=== PATIENT | female | born 1975 | race Caucasian/White ===

== ENCOUNTER 2023-01-16 02:36 | Emergency (ER) | payer OTHER, SELFPAY ==
[2023-01-16] VITALS (7 sets, daily range): BP systolic 135–175; BP diastolic 78–101; PULSE 63–76; RESP 16–18; TEMP 36.8; O2SAT 96–99; BMI 31.2
[2023-01-16] MEDS: 0.9 % SODIUM CHLORIDE 1000 ml 1,000 ML IV (02:50)
[2023-01-16] MEDS: ONDANSETRON 2 MG/ML inj 4 MG IVP (02:50)
[2023-01-16] MEDS: KETOROLAC 15 MG/ML inj IVP (02:51)
--- NOTE | 2023-01-16 02:53 | ED_ITS ---
HPI - Back Pain/Injury General Time Seen by Provider: 03:19 Date Seen: 01/16/23 Chief Complaint: Back Injury/Pain Stated Complaint: back pain Time Seen by Provider: 01/16/23 02:37 Source: patient History of Present Illness HPI Narrative: Patient is a very pleasant 47-year-old female with history of tubal ligation who comes to the emergency room for evaluation of abdominal and back pain. Patient notes that last evening she had the onset of some low back discomfort more on her left flank. She went to bed but notes that she tossed and turned all night to now the pain seems to be more centralized in her back but is also coming around to her upper abdomen. She notes that she feels like she is distended. She has also had some loose stools recently but there has been no blood in the stools. She has not noticed fever but tonight she is experiencing episodes of diaphoresis and just not feeling well. Yesterday she did undergo a urinary catheter as she is preparing for a sling surgery. She has not noticed any dysuria or hematuria. She has not had anything like at this in the past. She still retains her gallbladder and appendix. She has not taken anything for pain. Notes that she feels better when she is sitting forward. No known back injury or fall. Related Data Home Medications Medication Instructions Recorded Confirmed buspirone 7.5 mg tablet 7.5 mg PO BID 01/16/23 01/16/23 omeprazole 40 mg capsule,delayed 40 mg PO DAILY 01/16/23 01/16/23 release venlafaxine 150 mg 150 mg PO DAILY 01/16/23 01/16/23 capsule,extended release 24 hr Allergies Allergy/AdvReac Type Severity Reaction Status Date / Time No Known Drug Allergies Allergy Verified 01/16/23 02:46 Review of Systems Status of ROS: Reports: 10 or more systems reviewed and unremarkable except as noted in History and below Const: Reports: chills; Denies: fever or fatigue ENMT: Reports: neck pain (Has noticed intermittent episodes of neck discomfort on the left.); Denies: throat pain Cardio: Reports: lightheadedness (Occasionally in the morning); Denies: chest pain, swelling of feet/ankles or shortness of breath with exertion Resp: Denies: shortness of breath or cough GI: Reports: abdominal pain (Mild on the left) and diarrhea; Denies: vomiting or blood in stool : Denies: painful urination or urinary frequency Musculo: Reports: back pain and neck pain (Has noticed intermittent episodes of neck discomfort on the left.); Denies: extremity pain Integ/Breast: Denies: rash Neuro: Denies: headache, numbness in extremities or weakness in extremities Endo: Denies: fatigue PFSH PFS Medical History (Updated 01/16/23 @ 04:33 by Wes Nielson RN) No significant past medical history Surgical History (Updated 01/16/23 @ 04:33 by Wes Nielson RN) No significant past surgical history Social History Smoking Status: Never smoker Second hand tobacco smoke exposure: No How often do you have a drink containing alcohol: never How often do you have six or more drinks on one occasion: Never AUDIT-C Alcohol total score: 0 Non-prescribed substance use: denies use Exam Narrative: Exam Narrative: Alert and oriented. Is preferring to his stay sitting up but cooperative with exam. Eyes are clear. Lips are moist. Speech is normal. Heart with regular rate and rhythm and lungs are clear bilaterally. Abdomen shows some very subtle tenderness in the left lower quadrant. No rebound tenderness. No CVA tenderness with percussion. Abdomen is slightly protuberant. Bowel sounds are present but decreased. Lower extremities without edema. Const: Vital Signs, click to edit/add: Vital Signs - 24 hr 01/16/23 02:42 01/16/23 02:51 01/16/23 03:56 Temperature 98.2 F 98.2 F 98.2 F Pulse Rate Pulse Rate [Right Pulse Oximeter] 76 Respiratory Rate 18 Blood Pressure Blood Pressure [Ri ght Upper Arm] 175/101 H Pulse Oximetry 99 Oxygen Delivery Me thod Room Air 01/16/23 04:14 01/16/23 04:31 Temperature 98.2 F Pulse Rate 63 Pulse Rate [Right Pulse Oximeter] 76 Respiratory Rate 16 16 Blood Pressure 138/101 H Blood Pressure [Ri ght Upper Arm] 135/78 Pulse Oximetry 96 96 Oxygen Delivery Me thod Room Air Documenting provider has reviewed patient's vital signs: yes Course Course Hospital Course: Differential diagnosis includes but is not limited to angina, aortic dissection, diverticulitis, colitis, ovarian pathology, urinary tract infection, pyelonephritis, small-bowel obstruction, At this time will place IV, use Toradol 15 mg IV, Zofran 4 mg IV and 1 L normal saline. Recommend CBC, comprehensive, CRP, urinalysis. CT of the abdomen. Reevaluation(s) Reevaluation #1: At this time, CT of the abdomen is reassuring. Will check EKG and troponin. Patient states she really has not had much relief from the Toradol. She is driving tonight and therefore limited in further pain control options. Blood pressure improved. Vital Signs Vital signs: Initial Vital Signs Temperature 98.2 F 01/16/23 02:42 Temperature Source Temporal Artery Scan 01/16/23 02:42 Pulse Rate 76 01/16/23 02:42 Respiratory Rate 18 01/16/23 02:42 Blood Pressure 175/101 H 01/16/23 02:42 Blood Pressure Mean 125 H 01/16/23 02:42 Blood Pressure Position Sitting 01/16/23 02:42 Pulse Oximetry 99 01/16/23 02:42 Oxygen Delivery Method Room Air 01/16/23 02:42 Vital Signs Temperature 98.2 F 01/16/23 02:42 Pulse Rate 76 01/16/23 02:42 Respiratory Rate 18 01/16/23 02:42 Blood Pressure 175/101 H 01/16/23 02:42 Pulse Oximetry 99 01/16/23 02:42 Oxygen Delivery Method Room Air 01/16/23 02:42 Temperature 98.2 F 01/16/23 04:31 Pulse Rate 76 01/16/23 04:31 Respiratory Rate 16 01/16/23 04:31 Blood Pressure 135/78 01/16/23 04:31 Pulse Oximetry 96 01/16/23 04:31 Oxygen Delivery Method Room Air 01/16/23 04:31 MDM - Back Pain/Injury MDM Narrative Medical decision making narrative: 1. Abdominal pain-while laboratory values are reassuring patient's exam and history strongly suggest diverticulitis. Although CT was read as normal I suspect that this is the case. No evidence of abnormal EKG, elevated troponin, life-threatening medical condition here tonight. Discussed with patient the use of antibiotics and pain medications. Discuss risks of antibiotics and she is aware that she has no CT evidence of diverticulitis but I do believe that is what we are dealing with here today. Augmentin 875 mg p.o. b.i.d. x7 days is sent to our [facility] machine. In regards to discomfort patient notes no real did improvement of her pain with Toradol. She is driving tonight and therefore cannot given her anything stronger than this. However, I do recommend continue ibuprofen at home and I will give her a small amount of Vicodin 5/325 1-2 tabs p.o. q.4-6 hours p.r.n. pain 10. 2. Hypertension-likely secondary to discomfort. Blood pressure now improved to 135/78. 2. Disposition-home at this time. Patient will return to the emergency room if she has increasing fever, increasing pain, onset of other symptoms. No evidence of underlying coronary event, heart strain, leukocytosis, urinary tract infection tonight. Medical Records Attestation: I reviewed the patient's medical records. Lab Data Attestation: I reviewed the patient's lab results. Labs: Lab Results 01/16/23 01/16/23 01/16/23 Range/Units 03:05 03:25 04:11 WBC 7.94 (4.50-11.00) K/uL RBC 4.75 (4.00-5.20) m/uL Hgb 14.6 (12.0-16.0) gm/dL Hct 43.1 (33.0-51.0) % MCV 91 (80-100) fL MCH 31 (26-34) pg MCHC 34 (32-36) gm/dL RDW Coeff of [place] 12.3 (11.5-15.5) % Plt Count 260 (140-440) K/uL Neut % (Auto) 76.2 H (42.0-72.0) % Lymph % (Auto) 15.5 L (20-44) % [place] % (Auto) 7.6 (0.0-11.0) % Eos % (Auto) 0.0 (0.0-7.0) % Baso % (Auto) 0.3 (0.0-3.0) % Neut # (Auto) 6.10 (1.7-7.0) K/uL Lymph # (Auto) 1.20 (0.90-2.90) K/uL [place] # (Auto) 0.60 (0.00-0.90) K/UL Eos # (Auto) 0.00 (0.00-0.50) K/uL Baso # (Auto) 0.02 (0.00-0.30) K/uL Abs Immat Gran (auto) 0.03 (0.00-0.30) K/uL Imm/Tot Granulo (auto) 0.4 % Sodium 138 (135-149) mmol/L Potassium 3.2 L (3.6-5.1) mmol/L Chloride 102 (96-114) mmol/L Carbon Dioxide 24 (20-32) mmol/L BUN 18 (5-24) mg/dL Creatinine 0.6 (0.5-1.5) mg/dL Estimated Creat Clear 102.25 Estimated GFR 113 ml/min Glucose 128 H (60-115) mg/dL Calcium 8.8 (8.4-10.6) mg/dL Total Bilirubin 0.7 (0.1-1.5) mg/dL AST 32 (12-35) U/L ALT 46 H (4-35) U/L Alkaline Phosphatase 74 (40-150) U/L Troponin I < 0.01 L (0.01-0.04) ng/mL C-Reactive Protein < 0.5 L (0.5-1.0) mg/dL Total Protein 7.3 (6.0-8.3) g/dL Albumin 4.4 (3.3-5.0) g/dL Urine Color Yellow (Yellow) Urine Appearance Cloudy A (Clear) Urine pH 7.0 (5.0-8.5) Ur Specific [place] 1.020 (1.000-1.030) Urine Protein Trace A (Negative) Urine Glucose (UA) Negative (Negative) Urine Ketones Negative (Negative) Urine Blood Trace-lysed A (Negative) Urine Nitrite Negative (Negative) Urine Bilirubin Negative (Negative) Urine Urobilinogen 0.2 (0.2-1.0) Ur Leukocyte Esterase Negative (Negative) Urine RBC 2-5 A (0-2) Urine WBC 2-5 (0-5) Ur Squamous Epith Cells Moderate A (None-Few) Urine Bacteria Moderate A (None) Lab Acknowledgement Test Added Imaging Data CT scan - abdomen: Attestation: I have reviewed the pertinent imaging results. My impression: I do not note any acute findings. Radiologist's impression: Lower chest: Unremarkable. Liver: Hepatic steatosis. Spleen: Unremarkable. Pancreas: Unremarkable. Gallbladder and bile ducts: Unremarkable. Adrenal glands: Unremarkable. Kidneys: Unremarkable. GI tract: Unremarkable. Appendix is normal. Vascular structures: Unremarkable. Lymph nodes: Unremarkable. Miscellaneous: Small fat containing umbilical. No free air or significant free fluid. Pelvic Organs: The uterus measures 13 point 14.6 x 11.1 cm. The uterus is heterogeneous and contains multiple fibroids measuring up to 7.1 cm in size. There are multiple nabothian cysts. Bones: Unremarkable for age. IMPRESSION: No acute intra-abdominal inflammatory process identified. Enlarged, heterogeneous uterus with multiple fibroids. Hepatic steatosis. ECG Data Attestation: I personally reviewed and interpreted this ECG as follows: Interpretation: EKG by my read shows sinus rhythm at a rate of 67. No acute ST or T-wave changes are noted. No evidence of heart strain noted. QT and ME intervals normal. Discharge Plan Discharge Clinical Impression: Abdominal pain Patient Disposition: Home, Self-Care Condition: Improved Additional Instructions: Your CT and laboratory values were reassuring. I suspect that you may have early diverticulitis based on your exam and symptoms. We will start Augmentin twice daily for 7 days. However, I would ask that you seek medical attention and return for any worsening symptoms especially fever, blood in your stool, chest pain, onset of new symptoms. You may use ibuprofen as needed for discomfort. Will also supply you with Vicodin which is a combination medication of the narcotic hydrocodone and Tylenol for pain not relieved by ibuprofen. Prescriptions: No Action venlafaxine 150 mg capsule,extended release 24hr 150 mg PO DAILY omeprazole 40 mg capsule,delayed release(DR/EC) 40 mg PO DAILY buspirone 7.5 mg tablet 7.5 mg PO BID Stand Alone Forms: [employer] Info Instructions
--- NOTE | 2023-01-16 03:01 | CRLHL7_ITS ---
For Patients: As a result of the Century Cures Act, medical imaging exams and procedure reports are released immediately into your electronic medical record. You may view this report before your referring provider. If you have questions, please contact your health care provider. INDICATION: Left lower quadrant pain TECHNIQUE: CT abdomen and pelvis acquired with 90 cc Isovue 370 IV contrast. COMPARISON: March 22, 2018 FINDINGS: Lower chest: Unremarkable. Liver: Hepatic steatosis. Spleen: Unremarkable. Pancreas: Unremarkable. Gallbladder and bile ducts: Unremarkable. Adrenal glands: Unremarkable. Kidneys: Unremarkable. GI tract: Unremarkable. Appendix is normal. Vascular structures: Unremarkable. Lymph nodes: Unremarkable. Miscellaneous: Small fat containing umbilical. No free air or significant free fluid. Pelvic Organs: The uterus measures 13 point 14.6 x 11.1 cm. The uterus is heterogeneous and contains multiple fibroids measuring up to 7.1 cm in size. There are multiple nabothian cysts. Bones: Unremarkable for age. IMPRESSION: No acute intra-abdominal inflammatory process identified. Enlarged, heterogeneous uterus with multiple fibroids. Hepatic steatosis. Please note that all CT scans at this facility use dose modulation, iterative reconstruction, and/or weight-based dosing when appropriate to reduce radiation dose to as low as reasonably achievable. Dictated by Ania Whelan MD @ 01/16/2023 3:48:51 AM (Electronically Signed)
[2023-01-16 03:14] LABS: Basophils Absolute Auto 0.02 K/uL (0.00-0.30); Basophils Percent Auto 0.3 % (0.0-3.0); Hematocrit 43.1 % (33.0-51.0); Hemoglobin* 14.6 gm/dL (12.0-16.0); Immature Granulocytes Abs Auto 0.03 K/uL (0.00-0.30); Immature Granulocytes Pct Auto 0.4 %; Lymphocytes Percent Auto 15.5 % (20-44); Mean Corpuscular HGB Conc 34 gm/dL (32-36); Mean Corpuscular Hemoglobin 31 pg (26-34); Mean Corpuscular Volume 91 fL (80-100); Monocytes Percent Auto 7.6 % (0.0-11.0); Neutrophils Percent Auto 76.2 % (42.0-72.0); Platelet Count* 260 K/uL (140-440); RDW Coefficient of Variation % 12.3 % (11.5-15.5); Red Blood Count 4.75 m/uL (4.00-5.20); White Blood Count* 7.94 K/uL (4.50-11.00)
[2023-01-16 03:18] LABS: Slide Review Reflex No
[2023-01-16 03:26] LABS: Appearance Urine Cloudy (Clear); Bilirubin Urine Negative (Negative); Blood Urine Trace-lysed (Negative); Color Urine Yellow (Yellow); Glucose Urine Negative (Negative); Ketones Urine Negative (Negative); Leukocyte Esterase Urine Negative (Negative); Nitrite Urine Negative (Negative); Protein Urine Trace (Negative); Urobilinogen Urine 0.2 (0.2-1.0)
[2023-01-16 03:34] LABS: Squamous Epithelial Cell Urine Moderate (None-Few)
[2023-01-16 03:35] LABS: Bacteria Urine Moderate
[2023-01-16 03:36] LABS: Albumin* 4.4 g/dL (3.3-5.0); Chloride* 102 mmol/L (96-114); Sodium* 138 mmol/L (135-149)
[2023-01-16 03:37] LABS: Potassium* 3.2 mmol/L (3.6-5.1)
[2023-01-16 03:39] LABS: Alkaline Phosphatase* 74 U/L (40-150); Aspartate Amino Transferase* 32 U/L (12-35); Bilirubin Total* 0.7 mg/dL (0.1-1.5); Carbon Dioxide* 24 mmol/L (20-32); Creatinine* 0.6 mg/dL (0.5-1.5); Est. Creatinine Clearance* 102.25; Estimated Glomerular Filt Rate 113 ml/min; Total Protein* 7.3 g/dL (6.0-8.3)
[2023-01-16 03:40] LABS: Alanine Aminotransferase* 46 U/L (4-35); Blood Urea Nitrogen* 18 mg/dL (5-24); Calcium* 8.8 mg/dL (8.4-10.6); Glucose* 128 mg/dL (60-115)
[2023-01-16 03:43] LABS: C Reactive Protein* < 0.5 mg/dL (0.5-1.0)
[2023-01-16 04:32] LABS: Troponin I* < 0.01 ng/mL (0.01-0.04)
== END 2023-01-16 05:03 | disposition home or self-care (01) ==
PROVIDERS: Emergency Provider Family Medicine
DX: R10.9 Unspecified abdominal pain (principal)
CPT/HCPCS: 36415; 74177; 80053; 81001; 84484; 85025; 86140; 87086; 93005; 94761; 96361; 96374; 96375; 99284; 99285; J1885; J2405; J7030; Q9967

== ENCOUNTER 2023-10-25 01:28 | Emergency (ER) | payer OTHER, SELFPAY ==
[2023-10-25 01:37] VITALS: BP 152/97; PULSE 68; RESP 18; TEMP 36.4; O2SAT 97; BMI 29.0
--- NOTE | 2023-10-25 01:53 | ED_ITS ---
HPI - General Adult General Chief complaint: Abdominal Pain Stated complaint: abdominal pain Time Seen by Provider: 10/25/23 01:49 History of Present Illness HPI narrative: starting around 2129 patient began having lower back pain that wraps around to the front on both sides; states that this has happened before but that she is unsure what causes it. the pain is constant and is causing nausea . vomited 2X in triage. denies urinary symptoms, denies fever or chills at home or sick cont acts recently. states she had 1 episode of diarrhea. 47-year-old woman presenting to the emergency department with concern of intense abdominal pain. Began while driving in her back about for 5 hours ago. Rather abruptly. And then seems to have wrapped around to her front and settled she gestures in the epigastrium. She describes it as hard gnawing pain. It has been quite persistent. Apparently vomited a couple of times while waiting. No hematemesis noted. Otherwise was experiencing some looser claylike stools which she was attributing somewhat to being upset around the onset of this pain. Has not had a fever. No ill exposure. No dysuria or frequency. She does have a history of GERD and does take omeprazole. This occurrence is different. Is not having pleuritic pain. She has had similar pain before just not as much. Does acknowledge that her mother had her gallbladder out as did her maternal? grandfather. Related Data Home Medications Medication Instructions Recorded Confirmed omeprazole 40 mg capsule,delayed 40 mg PO DAILY 01/16/23 10/28/23 release sertraline 100 mg tablet (Zoloft) 100 mg PO QDAY 10/28/23 10/28/23 Allergies Allergy/AdvReac Type Severity Reaction Status Date / Time No Known Drug Allergies Allergy Verified 10/28/23 09:29 Review of Systems Status of ROS: Reports: 6 or more systems reviewed and unremarkable except as noted in History and below [facility] Medical History (Updated 10/28/23 @ 12:29 by Enzo Ghosh MD) No significant past medical history Surgical History (Updated 10/28/23 @ 12:27 by Enzo Ghosh MD) History of bladder surgery ?Z98.890 - Other specified postprocedural states (ICD-10) History of bilateral tubal ligation ?Z98.51 - Tubal ligation status (ICD-10) No significant past surgical history Social History Smoking Status: Never smoker Second hand tobacco smoke exposure: No How often do you have a drink containing alcohol: never How often do you have six or more drinks on one occasion: Never AUDIT-C Alcohol total score: 0 Non-prescribed substance use: denies use Exam Narrative: Exam Narrative: Pleasant. Restless in apparent discomfort. Skin is warm and dry with numerous tattoos. Extremities are well perfused without edema. No rash evident. Lungs are clear. Not with flank pain. Normal bowel sounds. Abdomen is soft. Negative Garcia's but a little uncomfortable under the right anterior ribs but most pain in the epigastrium. No peritoneal signs. Normal bowel sounds. Heart in regular rate and rhythm. Const: Vital Signs, click to edit/add: Vital Signs - 24 hr 10/25/23 01:37 10/25/23 03:55 10/25/23 05:40 Temperature 97.6 F Pulse Rate [Pulse Oximeter] 68 82 80 Respiratory Rate 18 18 16 Blood Pressure [Le ft Upper Arm] 152/97 H 136/98 H 124/81 Pulse Oximetry 97 97 95 Oxygen Delivery Me thod Room Air Room Air Room Air Documenting provider has reviewed patient's vital signs: yes Course Vital Signs Vital signs: Initial Vital Signs Temperature 97.6 F 10/25/23 01:37 Temperature Source Temporal Artery Scan 10/25/23 01:37 Pulse Rate 68 10/25/23 01:37 Respiratory Rate 18 10/25/23 01:37 Blood Pressure 152/97 H 10/25/23 01:37 Blood Pressure Mean 115 H 10/25/23 01:37 Blood Pressure Position Supine 10/25/23 01:37 Pulse Oximetry 97 10/25/23 01:37 Oxygen Delivery Method Room Air 10/25/23 01:37 Vital Signs Temperature 97.6 F 10/25/23 01:37 Pulse Rate 68 10/25/23 01:37 Respiratory Rate 18 10/25/23 01:37 Blood Pressure 152/97 H 10/25/23 01:37 Pulse Oximetry 97 10/25/23 01:37 Oxygen Delivery Method Room Air 10/25/23 01:37 Temperature 97.6 F 10/25/23 01:37 Pulse Rate 80 10/25/23 05:40 Respiratory Rate 16 10/25/23 05:40 Blood Pressure 124/81 10/25/23 05:40 Pulse Oximetry 95 10/25/23 05:40 Oxygen Delivery Method Room Air 10/25/23 05:40 Medications Administered Medications: Discontinued Medications Generic Name Dose Route Start Last Admin Trade Name Gordoq PRN Reason Stop Dose Admin Sodium Chloride 1,000 mls @ 1,000 mls/hr 10/25/23 02:29 10/25/23 03:48 0.9 % Sodium Chloride 1000 Ml IV 10/25/23 03:28 Infused .Q1H ONE Infusion Ketorolac Tromethamine 30 mg 10/25/23 02:29 10/25/23 02:59 Ketorolac 30 Mg/Ml Inj IVP 10/25/23 02:30 30 mg ONCE ONE Administration Lidocaine/Aluminum/Magnesium/Simeth 30 ml 10/25/23 02:29 10/25/23 03:01 Gi Cocktail (Visc Lido/Antacid) 30 Ml PO 10/25/23 02:30 30 ml ONCE ONE Administration Morphine Sulfate 4 mg 10/25/23 02:29 10/25/23 03:23 Morphine 4 Mg/Ml Inj IVP 10/25/23 02:30 4 mg ONCE ONE Administration Ondansetron HCl 4 mg 10/25/23 02:29 10/25/23 03:00 Ondansetron 2 Mg/Ml Inj IVP 10/25/23 02:30 4 mg ONCE ONE Administration Medical Decision Making MDM Narrative Medical decision making narrative: I would evaluate for gallbladder disease and suspect this is probably biliary colic given what she described as similar symptoms in the past. Possible cholecystitis. This seems more than GERD. I would screen for vascular dissection. Not really with symptoms consistent for urinary tract infection nor nephrolithiasis but would screen urine for this. Ischemic cardiovascular event? Pancreatitis? Enteritis? Discussed options for management of her discomfort. She would appreciate immediate relief. Ordered for IV fluids Zofran ketorolac and initial dosing morphine. Also GI cocktail. On reassessment is a little improved but morphine sounds to have been deferred anticipating need to drive home per conversation between nursing and Ms. Oliva. I also would anticipate this not keeping her here extensively; still with pain would like the morphine. Has not seen full effect of ketorolac. With morphine is markedly improved. Reviewing labs -- mildly elevated white count and transaminases. Record review shows history of slightly elevated transaminases. Would suspect fatty liver. Urinalysis lightly positive but I am not convinced that this is the reason for discomfort. I did place bedside ultrasound. Negative Garcia's and without thickened gallbladder wall I think but does have appear to be a couple of large mobile stones and some sludge. Allowed to rest. She would like to/is willing to wait for more formal ultrasound if possible. Rested in the emergency department until early Thursday morning. cardiac catheterization technologist arrived to do ultrasound. Confirmed presence of mobile stones and sludge. Gallbladder wall thought normal. Duct thought to be a little dilated. Negative Garcia's. Question of some dayana cholecystic fluid? Ms. Oliva is symptom free. Ultimately she departed the emergency department pending radiology over-read. Plan for outpatient surgical consult. To return for persistent escalated pain, fever. Lab Data Lab results reviewed: Yes I reviewed the patient's lab results Labs: Lab Results 10/25/23 10/25/23 10/25/23 Range/Units 02:30 02:54 02:54 WBC 12.50 H (4.50-11.00) K/uL RBC 5.14 (4.00-5.20) m/uL Hgb 15.2 (12.0-16.0) gm/dL Hct 45.6 (33.0-51.0) % MCV 89 (80-100) fL MCH 30 (26-34) pg MCHC 33 (32-36) gm/dL RDW Coeff of Flora 13.0 (11.5-15.5) % Plt Count 301 (140-440) K/uL Neut % (Auto) 84.7 H (42.0-72.0) % Lymph % (Auto) 8.5 L (20-44) % [place] % (Auto) 5.8 (0.0-11.0) % Eos % (Auto) 0.2 (0.0-7.0) % Baso % (Auto) 0.2 (0.0-3.0) % Neut # (Auto) 10.60 H (1.7-7.0) K/uL Lymph # (Auto) 1.10 (0.90-2.90) K/uL [place] # (Auto) 0.70 (0.00-0.90) K/UL Eos # (Auto) 0.00 (0.00-0.50) K/uL Baso # (Auto) 0.00 (0.00-0.30) K/uL Abs Immat Gran (auto) 0.10 (0.00-0.30) K/uL Imm/Tot Granulo (auto) 0.6 % D-Dimer Quant (PE/DVT) 0.44 (0.00-0.50) ug/ml Sodium 139 (135-149) mmol/L Potassium 3.8 (3.6-5.1) mmol/L Chloride 107 (96-114) mmol/L Carbon Dioxide 26 (20-32) mmol/L Anion Gap 6 L (7-15) mEq/L BUN 18 (5-24) mg/dL Creatinine 0.6 (0.5-1.5) mg/dL Estimated Creat Clear 115.14 Estimated GFR 113 ml/min Glucose 144 H (60-115) mg/dL Lactate 1.3 (0.5-1.9) mmol/L Calcium 9.4 (8.4-10.6) mg/dL Total Bilirubin 0.8 (0.1-1.5) mg/dL Direct Bilirubin 0.1 (0.0-0.5) mg/dL AST 37 H (12-35) U/L ALT 81 H (4-35) U/L Alkaline Phosphatase 107 (40-150) U/L Troponin I < 0.01 L Cancelled (0.01-0.04) ng/mL C-Reactive Protein < 0.5 L (0.5-1.0) mg/dL NT-Pro-B Natriuret Pep 30 pg/mL Total Protein (6.0-8.3) g/dL Albumin (3.3-5.0) g/dL Lipase (23-300) U/L Urine Color (Yellow) Urine Appearance (Clear) Urine pH (5.0-8.5) Ur Specific [place] (1.000-1.030) Urine Protein (Negative) Urine Glucose (UA) (Negative) Urine Ketones (Negative) Urine Blood (Negative) Urine Nitrite (Negative) Urine Bilirubin (Negative) Urine Urobilinogen (0.2-1.0) Ur Leukocyte Esterase (Negative) Urine RBC (0-2) Urine WBC (0-5) Ur Squamous Epith Cells (None-Few) Urine Bacteria (None) Lab Acknowledgement POC Troponin I 0.00 L (0.01-0.04) ng/ml 10/25/23 10/25/23 10/25/23 Range/Units 02:54 03:51 04:00 WBC (4.50-11.00) K/uL RBC (4.00-5.20) m/uL Hgb (12.0-16.0) gm/dL Hct (33.0-51.0) % MCV (80-100) fL MCH (26-34) pg MCHC (32-36) gm/dL RDW Coeff of Flora (11.5-15.5) % Plt Count (140-440) K/uL Neut % (Auto) (42.0-72.0) % Lymph % (Auto) (20-44) % [place] % (Auto) (0.0-11.0) % Eos % (Auto) (0.0-7.0) % Baso % (Auto) (0.0-3.0) % Neut # (Auto) (1.7-7.0) K/uL Lymph # (Auto) (0.90-2.90) K/uL [place] # (Auto) (0.00-0.90) K/UL Eos # (Auto) (0.00-0.50) K/uL Baso # (Auto) (0.00-0.30) K/uL Abs Immat Gran (auto) (0.00-0.30) K/uL Imm/Tot Granulo (auto) % D-Dimer Quant (PE/DVT) (0.00-0.50) ug/ml Sodium (135-149) mmol/L Potassium (3.6-5.1) mmol/L Chloride (96-114) mmol/L Carbon Dioxide (20-32) mmol/L Anion Gap (7-15) mEq/L BUN (5-24) mg/dL Creatinine (0.5-1.5) mg/dL Estimated Creat Clear Estimated GFR ml/min Glucose (60-115) mg/dL Lactate (0.5-1.9) mmol/L Calcium (8.4-10.6) mg/dL Total Bilirubin (0.1-1.5) mg/dL Direct Bilirubin (0.0-0.5) mg/dL AST (12-35) U/L ALT (4-35) U/L Alkaline Phosphatase (40-150) U/L Troponin I (0.01-0.04) ng/mL C-Reactive Protein (0.5-1.0) mg/dL NT-Pro-B Natriuret Pep Cancelled pg/mL Total Protein 8.7 H (6.0-8.3) g/dL Albumin 5.1 H (3.3-5.0) g/dL Lipase 81 (23-300) U/L Urine Color Yellow (Yellow) Urine Appearance Cloudy A (Clear) Urine pH 8.5 (5.0-8.5) Ur Specific [place] 1.020 (1.000-1.030) Urine Protein Negative (Negative) Urine Glucose (UA) Negative (Negative) Urine Ketones 1+ A (Negative) Urine Blood Negative (Negative) Urine Nitrite Negative (Negative) Urine Bilirubin Negative (Negative) Urine Urobilinogen 0.2 (0.2-1.0) Ur Leukocyte Esterase Trace A (Negative) Urine RBC 2-5 A (0-2) Urine WBC 5-10 A (0-5) Ur Squamous Epith Cells Moderate A (None-Few) Urine Bacteria Few A (None) Lab Acknowledgement Test Added POC Troponin I (0.01-0.04) ng/ml ECG Data Attestation: I personally reviewed and interpreted this ECG as follows: (Normal sinus rhythm at a rate of 61. No acute ischemic changes.) Discharge Plan Discharge Clinical Impression: Biliary colic, Cholelithiasis Abdominal pain Qualifiers: Abdominal location: right upper quadrant Qualified Code(s): R10.11 - Right upper quadrant pain Patient Disposition: Home, Self-Care Condition: Improved Additional Instructions: Yes. It looks like you were right on with your suspicions. I would like you to call to General surgery here to schedule follow-up to discuss a plan for your gallbladder. Please call [phone] to schedule an appointment for general surgery at [facility]. In meantime avoid greasy, fatty food. Stay well-hydrated. Can take up to 800 mg of ibuprofen or up to 1000 mg of acetaminophen per dose. Alternative to ibuprofen might be up to 500 mg of naproxen twice daily. I am prescribing you Benge and Zofran from [facility]. Benge for pain Zofran for nausea. Keep in mind that each tablet of Benge contains 325 mg of acetaminophen. Prescriptions: No Action sertraline [Zoloft] 100 mg tablet 100 mg PO QDAY omeprazole 40 mg capsule,delayed release(DR/EC) 40 mg PO DAILY Follow Up/Referrals: Provider,Not a Local [Primary Care Provider] - Stand Alone Forms: [employer] Info Instructions
--- OUTSIDE RECORDS SUMMARY | 2023-10-25 02:35 | XMS_ITS | Data Portability ---
Author Name Unknown Address [address] [place] [id number] Phone [phone] Organization [place] - [facility], [address] Address [address] [place] [address] Assessment No assessment recorded. Plan of Treatment Reminders Order Date Submit Date Provider Last Modified By Organization Details Last Modified Time Details Appointments None record ed. Lab None record ed. Referral None record ed. Procedures None record ed. Surgeries None record ed. Imaging None record ed. Medication Orders None record ed. Patient TargetsNo targets recorded. Patient InstructionsNo instructions recorded. Reason for Referral None Reported. Medical Equipment None Reported. Vitals None Recorded Social History None recorded. Functional Status None recorded. Mental Status None recorded. Family History Nothing Reported. Medical History No medical history recorded. Gynecological HistoryNo gynecological history recorded. Obstetrics History GPAL:G 0 P 0 0 0 0 Past Encounters Encounter ID Performer Location Encounter Start Date Encounter Closed Date Diagnosis/Indication Diagnosis SNOMED-CT Code [id number] [place] [address] 06/23/2019 17:14:47 06/23/2019 18:21:44 Health Concerns Section Related Observation LastModified by Organization Detai ls LastModified Time None Recorded Concern Status LastModified by Organization Details LastModified Time None Recorded Advance Directives Directive None Recorded Payers Encounter Date Sequence Insurance Name Policy Number Policy Brown Covered Member ID Brown Member ID Guarantor Name 06/23/2019 1 [id number] [employer] [facility] [id number] Donal Oliva [id number] [facility] Episode No OBEpisode recorded.
--- OUTSIDE RECORDS SUMMARY | 2023-10-25 02:35 | XMS_ITS | Clinical Summary ---
Author Name Unknown Organization [facility] Address [place], [place] [address] Care Team Providers Care Paper Reel Operator Name Role Phone Juan Treadwell Primary Care Provider Allergies No known active allergies Medications Medication Sig Dispensed Refills Start Date End Date Status omeprazole (PRILOSEC) 40 mg Delayed-Release capsule TAKE 1 CAPSULE BY MOUTH EVERY DAY 1 HOUR BEFORE A MEAL 07/16/2023 Active sertraline (ZOLOFT) 100 mg tablet Take 150 mg by mouth. 04/24/2023 07/08/2024 Active albuterol HFA (PRO-AIR; VENTOLIN; PROVENTIL) 90 mcg/actuation inhalerIndications :Bronchitis Inhale 2 Puffs by mouth 4 times daily if needed for Shortness of Breath 1st choice. 1 Each 09/18/2023 Active predniSONE (DELTASONE) 20 mg tabletIndications: Bronchitis Take 3 Tablets (60 mg) by mouth once daily for 3 days, THEN 2 Tablets (40 mg) once daily for 3 days, THEN 1 Tablet (20 mg) once daily for 3 days. 18 Tablet 09/18/2023 09/27/2023 Encounters Date Type Department Care Team Description 09/18/2023 8:47 PM CDT - 09/18/2023 10:18 PM CDT Emergency [facility] [place] [address] [place] [address] Antonietta Klein [place] Bronchitis (Primary Dx) Discharge Disposition: Home Self Care from Last 3 Months Social History Tobacco Use Types Packs/Day Years Used Date Smoking Tobacco: Never Smokeless Tobacco: Never Tobacco Cessation:Counseling Given: Not Answered Alcohol Use Standard Drinks/Week Comments Yes 0 (1 standard drink = 0.6 oz pur e alcohol) Sex and Gender Information Value Date Recorded Sex Assigned at Not on file Gender Identity Not on file Sexual Orientation Not on file Obstetrics History Last Filed Vital Signs Vital Sign Reading Time Taken Comments Blood Pressure 133/96 09/18/2023 9:22 PM CDT Pulse 82 09/18/2023 9:22 PM CDT Temperature 36.8 ??C (98.2 ??F) 09/18/2023 9:22 PM CD T Respiratory Rate 16 09/18/2023 9:22 PM CDT Oxygen Saturation 97% 09/18/2023 9:22 PM CDT Inhaled Oxygen Concentration - - Weight 81.6 kg (180 lb) 09/18/2023 9:22 PM CDT Height 170.2 cm (5' 7) 09/18/2023 9:22 PM CDT Body Mass Index 28.19 09/18/2023 9:22 PM CDT Plan of Treatment Health Maintenance Due Date Last Done Comments Tdap 1988 Depression screening for age 12+ 1989 HIV for age 15-65 1992 BMI (ht and wt on same day) for age 18+ 12/22/1995 Hepatitis C screening for ag e 18-79 12/22/1995 Tetanus booster 1997 Pap test for age 21-65 1998 Colonoscopy through age 75 2022 Lipids for age 45-75 2022 Mammogram for age 45-75 2022 COVID-19 vaccine series (2022- season) 2023 07/20/2020, 07/02/2020 Influenza for age 9-49 03/06/2023 Pneumococcal series for age 6-64 Aged Out No longer eligible b ased on patient's age to complete this topic Procedures Procedure Name Priority Date/Time Associated Diagnosis Comments XR CHEST 2 VIEWS PA AND LATERAL STAT 09/18/2023 9:30 PM CDT from Last 3 Months Results * XR CHEST 2 VIEWS PA AND LATERAL (09/18/2023 9:30 PM CDT) Anatomical Region Laterality Modality CHEST, THORAX, Lung, HEART Compu kayla Radiography 09/18/2023 9:30 PM CDT Impressions 09/18/2023 9:33 PM CDT Negative chest. Narrative 09/18/2023 9:33 PM CDT For Patients: As a result of the Cures Act, medical imaging exams and procedure reports are released immediately into your electronic medical record. You may view this report before your referring provider. If you have questions, please contact your health care provider. EXAM: XR CHEST 2 VIEWS PA AND LATERAL LOCATION: [facility] [place] DATE: 09/18/2023 INDICATION: Cough COMPARISON: None. Procedure Note Chris Cagle MD - 09/18/2023 For Patients: As a result of the s Act, medical imagingexams and procedure reports are released immediately into your electronicmedical record. You may view this report before your referring provider.If you have questions, please contact your health care provider. EXAM: XR CHEST 2 VIEWS PA AND LATERAL LOCATION: [facility] [place] DATE: 09/18/2023 INDICATION: Cough COMPARISON: None. IMPRESSION: Negative chest. Antonietta Chau GENERAL IM AGING from Last 3 Months Care Teams Paper Reel Operator Relationship Specialty Start Date End Date Juan Treadwell PA [facility] [place] [id number] PCP - General 03/08/21
--- OUTSIDE RECORDS SUMMARY | 2023-10-25 02:36 | XMS_ITS | Clinical Summary ---
Author Name Unknown Organization [facility] Address [address] [place] [address] Care Team Providers Care Mold Washer Name Role Phone Clinic, [facility]irst[facility]ons Primary Care Provide r Allergies No known active allergies Social History Tobacco Use Types Packs/Day Years Used Date Smoking Tobacco: Never Assessed Adolescent Education Answer Date Record ed Getting School Help Needed Not on file 04/11 Sex and Gender Information Value Date Recorded Sex Assigned at Not on file Gender Identity Not on file Sexual Orientation Not on file Last Filed Vital Signs Vital Sign Reading Time Taken Comments Blood Pressure 129/86 06/23/2019 6:02 PM FIELD MANAGER Pulse 60 06/23/2019 6:02 PM FIELD MANAGER Temperature 37 ??C (98.6 ??F) 06/23/2019 5:31 PM FIELD MANAGER Respiratory Rate 14 06/23/2019 7:01 PM FIELD MANAGER Oxygen Saturation 97% 06/23/2019 6:50 PM FIELD MANAGER Inhaled Oxygen Concentration - - Weight - - Height - - Body Mass Index - - Plan of Treatment Health Maintenance Due Date Last Done Comments ADVANCE CARE PLANNING 1977 ANNUAL REVIEW OF HM ORDERS 1977 CT COLONOGRAPHY 1977 FIT 1977 FLEX SIG 1977 MAMMO SCREENING 1977 sDNA (Cologuard) 1977 COLONOSCOPY 12/22/1987 COLORECTAL CANCER SCREENING 12/22/1987 HIV SCREENING 1992 HEPATITIS B IMMUNIZATION (1 of 3 - 19+ 3-dose series) 1996 DTAP/TDAP/TD IMMUNIZATION (1 - Tdap) 2002 PAP 09/10/2014 09/11/2011 LIPID 2017 YEARLY PREVENTIVE VISIT 02/19/2020 02/19/20 19, 09/09/2017 GLUCOSE 06/23/2022 06/23/2019 COVID-19 Vaccine (1 - 2022-2 4 season) 2023 INFLUENZA VACCINE (#1) 2023 3, 05/06/2013 PHQ-2 (once per calendar year) 2023 HEPATITIS C SCREENING Completed 07/24/2010 HPV IMMUNIZATION Aged Out No longer e ligible based on patient's age to complete this topic IPV IMMUNIZATION Aged Out No longer e ligible based on patient's age to complete this topic MENINGITIS IMMUNIZATION Aged Out No l onger eligible based on patient's age to complete this topic Pneumococcal Vaccine: Pediatrics (0 to 5 Years) and At-Risk Patients (6 to 64 Years) Aged Out No longer eligible b ased on patient's age to complete this topic RSV MONOCLONAL ANTIBODY Aged Out No l onger eligible based on patient's age to complete this topic Procedures Procedure Name Priority Date/Time Associated Diagnosis Comments BASIC METABOLIC PANEL STAT 06/23/2019 6:09 PM FIELD MANAGER PAP LB RFX HPV ASCU ([facility]) Routine 09/11/2011 8:52 PM FIELD MANAGER HCV ANTIBODY ([facility]) Routine 07/24/2010 1:45 PM FIELD MANAGER from Last 3 Months or Most Recently Relevant to Health Maintenance Results * (ABNORMAL) Basic metabolic panel (BMP) (06/23/2019 6:09 PM FIELD MANAGER) Sodium 141 133 - 144 mmol/L 06/23/2019 6:27 PM [facility] Potassium 3.2(L) 3.4 - 5.3 mmol/L 06/23/2019 6:27 PM [facility] Chloride 108 94 - 109 mmol/L 06/23/2019 6:27 PM [facility] Carbon Dioxide 26 20 - 32 mmol/L 06/23/2019 6:33 PM [facility] Anion Gap 7 3 - 14 mmol/L 06/23/2019 6:33 PM [facility] Glucose 105(H) 70 - 99 mg/dL 06/23/2019 6:33 PM FIELD MANAGER [facility] Urea Nitrogen 20 7 - 30 mg/dL 06/23/2019 6:33 PM [facility] Creatinine 0.66 0.52 - 1.04 mg/dL 06/23/2019 6:33 PM [facility] GFR Estimate >90 >60 mL/min/{1. 73_m2} 06/23/2019 6:33 PM FIELD MANAGER [facility] Comment: Non GFR Calc Starting 06/22/2018, serum creatinine based estimated GFR (eGFR) will be calculated using the Chronic Kidney Disease Epidemiology Collaboration (CKD-EPI) equation. GFR Estimate If Black >90 >60 mL/min/{1. 73_m2} 06/23/2019 6:33 PM [facility] Comment: GFR Calc Starting 06/22/2018, serum creatinine based estimated GFR (eGFR) will be calculated using the Chronic Kidney Disease Epidemiology Collaboration (CKD-EPI) equation. Calcium 8.8 8.5 - 10.1 mg/dL 06/23/2019 6:33 PM [facility] Blood specimen (specimen) 06/23/2019 6:09 PM FIELD MANAGER 06/23/2019 6:16 PM FIELD MANAGER Arvind Larose MD LAB - BLOOD ORDER BILL [facility] [address] [place] [address], [facility] [phone] * Pap Lb rfx HPV ASCU ([facility]) (09/11/2011 8:52 PM FIELD MANAGER) DIAGNOSIS: Comment [facility] HISTORICAL RESULTS Comment: NEGATIVE FOR INTRAEPITHELIAL LESION AND MALIGNANCY. ?? THIS SPECIMEN WAS RESCREENED PART OF OUR PARASITOLOGIST PROGRAM. ?? Specimen adequacy: Comment B HISTORICAL RESULTS Comment: Satisfactory for evaluation. ??Endocervical and/or squamous metaplastic ?? cells (endocervical component) are present. ?? Performed by: Comment [facility] HISTORICAL RESULTS QC reviewed by: Comment [facility] HISTORICAL RESULTS Comment: Ezequiel Headley, Internist Medical Doctor Md (ASCP) ?? . 0 [facility] HISTORICAL RESULTS Note: Comment [facility] HISTORICAL RESULTS Comment: The Pap smear is a screening test designed to aid in the detection of ?? premalignant and malignant conditions of the uterine cervix. ??It is not a ?? diagnostic procedure and should not be used as the sole means of detecting ?? cervical cancer. ??Both false-positive and false-negative reports do occur. ?? . ?? . Comment [facility] HISTORICAL RESULTS Comment: The HPV DNA reflex criteria were not met with this specimen result ?? therefore, no HPV testing was performed. ?? . ?? 09/11/2011 8:52 PM FIELD MANAGER 09/17/2011 8:19 PM CDT Madie Murray MD LAB - [facility] Performing Organization Address [facility] Co de Phone Number [facility] HISTORICAL RESULTS * HCV Antibody ([facility]) (07/24/2010 1:45 PM FIELD MANAGER) Hep C Virus Ab <0.1 0.0 - 0.9 s/co ratio [facility] HISTORICAL RESULTS Comment: Negative: ? < 0.8 ?? Indeterminate 0.8 - 0.9 ?? Positive: ? > 0.9 ?? . ?? In order to reduce the incidence of a false positive ?? result, the CDC recommends that all s/co ratios ?? between 1.0 and 10.9 be confirmed with additional ?? RIBA or PCR testing. ?? 07/24/2010 1:45 PM FIELD MANAGER 07/26/2010 12:14 AM FIELD MANAGER Rupinder Hanson DO LAB - [facility] Performing Organization Address City/State/[facility] Co de Phone Number [facility] HISTORICAL RESULTS from Last 3 Months or Most Recently Relevant to Health Maintenance Care Teams Mold Washer Relationship Specialty Start Date End Date Clinic, Kirstin Lyons [address] [place] [address] PCP - General 12/03/22
--- OUTSIDE RECORDS SUMMARY | 2023-10-25 02:36 | XMS_ITS | Encounter Summary ---
Author Name Unknown Organization [facility] Address [address] [place] [address] Care Team Providers Care Liner Machine Operator Name Role Phone Juan Treadwell PA-C Primary Care Provider Reason for Referral * Procedure/Equipment (Routine) - Incomplete Specialty Diagnoses / Procedures Referred By Surjit leiva Referred To Contact Procedures MM Mammogram Screening Juan Cloud PA-C [address] [place] [address] Referral ID Status Reason Start Date Expiration Date V isits Requested Visits Authorized [id number] Incomplete 09/10/2023 12/09/2024 1 1 OPRESS OPERATOR Reason for Visit * Procedure/Equipment (Routine) - Incomplete Specialty Diagnoses / Procedures Referred By Surjit leiva Referred To Contact Procedures MM Mammogram Screening Juan Cloud PA-C [address] [place] [address] Referral ID Status Reason Start Date Expiration Date V isits Requested Visits Authorized [id number] Incomplete 09/10/2023 12/09/2024 1 1 Encounter Details Date Type Department Care Team ([facility] st Contact Info) Description 09/10/2023 10:10 AM LITHOPRESS OPERATOR Ancillary Procedure [facility] [address] [place] [address] Social History Tobacco Use Types Packs/Day Years Used Date Smoking Tobacco: Former Cigarettes Q uit: 09/09/2006 Smokeless Tobacco: Never Alcohol Use Standard Drinks/Week Comments Yes 0 (1 standard drink = 0.6 oz pur e alcohol) occ. PHQ-2 Answer Date Recorded PHQ-2 Score 0 07/03/2023 Financial Resource Strain Answer Date R ecorded Is it hard for you to pay fo r the very basics like food, housing, medical care or heating? No 10/03/2022 Food Insecurity Answer Date Recorded Does your food run out before you have the money to buy more? No 10/03/2022 Transportation Needs Answer Date Record ed Does a lack of transportatio n keep you from your medical appointments or from getting your medications? No 023 Sex and Gender Information Value Date Recorded Sex Assigned at Not on file Gender Identity Not on file Sexual Orientation Not on file documented as of this encounter Plan of Treatment Not on file documented as of this encounter Procedures Procedure Name Priority Date/Time Associated Diagnosis Comments MM MAMMOGRAM SCREENING BILAT W CAD Routine 09/10/2023 10:13 AM LITHOPRESS OPERATOR documented in this encounter Results * MM Mammogram Screening Bilat W CAD (09/10/2023 10:13 AM LITHOPRESS OPERATOR) Anatomical Region Laterality Modality Breast Bilateral Mammography Impressions 09/10/2023 10:50 AM LITHOPRESS OPERATOR : ACR BI-RADS Category 1: Negative RECOMMENDATION: Follow Up Imaging in 12 months - Bilateral The results and recommendations of this examination will be communicated to the patient. Narrative 09/10/2023 10:50 AM LITHOPRESS OPERATOR MM MAMMOGRAM SCREENING BILAT W CAD performed on 09/10/23 Compared to: 11/07/2021 MM Mammogram Screening Bilat W CAD, 2018 MM Mammogram Screening Bilat W CAD, and 09/10/2017 MM Mammogram Screening Bilat W CAD ?? FINDINGS: Bilateral screening mammogram was performed with the assistance of Computer-Aided Detection . The breasts are heterogeneously dense, which may obscure small masses. There is no radiographic evidence of malignancy. ?? Juan Treadwell PA-C RAD EVAN documented in this encounter Visit Diagnoses Not on filedocumented in this encounter Care Teams Liner Machine Operator Relationship Specialty Start Date End Date Juan Treadwell PA-C [address] [place] [address] PCP - General 11/01/13 documented as of this encounter
--- OUTSIDE RECORDS SUMMARY | 2023-10-25 02:36 | XMS_ITS | Encounter Summary ---
Author Name Unknown Organization [facility] Address [address] [place] [address] Care Team Providers Care Fork Repairer Name Role Phone [place] [facility] Primary Care Provide r Encounter Details Date Type Department Care Team (Late st Contact Info) Description 04/22/2007 Clinic Report (Competitive Athlete) [address] [phone] Madie Murray MD NO INFO AVAILABLE 09/17/2022 Social History Tobacco Use Types Packs/Day Years Used Date Smoking Tobacco: Never Assessed Sex and Gender Information Value Date Recorded Sex Assigned at Not on file Gender Identity Not on file Sexual Orientation Not on file documented as of this encounter Progress Notes * Madie Murray MD - 05/29/2012 3:52 PM CST CC/HPI: Follow up pap post colposcopy. None ROS: None Vital Signs: data collected on 04/22/2007 03:19:12 PM by Jaky Chow weight is 153 pounds 1.92 ounces clothed respiration rate is 16 bpm quiet sitting heart rate is 80 bpm regular blood pressure at Right Arm while Sitting is 118/60 mmHg PE: None Dx: 795.00 Abnormal pap smear 616.10 Bacterial vaginitis v04.81 Immunization influenza 300.00 Anxiety 300.01 Panic disorder, no agoraphobia Rx: Lexapro 10 mg Tab, 1 Tablet, PO, QD, 40 days, for a total of 40, return to clinic in one month. Metronidazole 500 mg Tab, 1 Tablet, PO, BID, 7 days, for a total of 14. Plan: None Patient Instructions: None documented in this encounter Plan of Treatment Not on file documented as of this encounter Visit Diagnoses Not on filedocumented in this encounter Care Teams Fork Repairer Relationship Specialty Start Date End Date [place] Bishop PCP - General Family Practice 06/23/19 12/02/22 Clinic, Kirstin Lyons [address] [place] [address] PCP - General 12/03/22 documented as of this encounter
--- OUTSIDE RECORDS SUMMARY | 2023-10-25 02:36 | XMS_ITS | Encounter Summary ---
Author Name Unknown Organization [facility] Address [address] [place] [address] Care Team Providers Care Digital Forensic Examiner Name Role Phone [place] Bishop Primary Care Provider Samia sdalicia [facility], Kirstin Lyons Primary Care Provide r Encounter Details Date Type Department Care Team (Late st Contact Info) Description 01/25/2010 Clinic Report (Mandarin Speaking Nanny) [address] [phone] Madie Murray MD NO INFO AVAILABLE 09/17/2022 Social History Tobacco Use Types Packs/Day Years Used Date Smoking Tobacco: Never Assessed Sex and Gender Information Value Date Recorded Sex Assigned at Not on file Gender Identity Not on file Sexual Orientation Not on file documented as of this encounter Progress Notes * Madie Murray MD - 05/29/2012 3:11 AM CST CC/HPI: She presented for well woman exam (18-39 years). Current contraception practice includes bilateral tubal ligation. Pap smear history is significant for last normal performed on 04-22-2007. Menstrual history includes menarche at age 16, last menstrual period 01-11-2010, regular menses, moderate flow and dysmenorrhea. Obstetrical history reveals 6 total pregnancies, 3 full term, 2 therapeutic , 1 spontaneous and 3 living children. The patient is sexually active and is monogamous. Gynecological complaints include none. Lifestyle is remarkable for no history of physical abuse, no history of sexual abuse, no history of verbal abuse, regular seatbelt use, family supportive of relationship, unsatisfactory work experience and 1 satisfactory, normal sleep patterns, abnormal amount of stress and satisfactory marriage/partner relationship. Health maintenance issues include normal weight and moderate exercise. Body Mass Index is normal BMI between 18.5 and 24.9. Cardiovascular risk factors include none. Reproductive development history shows normal development and normal genitalia. Patient received health guidance in self-breast exam, prevention and tobacco, drugs and alcohol avoidance no tobacco - ETOH . The patient received tetanus-diphtheria booster needs and given today. When asked about alcoholic beverage use, patient responds yes, screening will continue. In the past year, has had 4 or more drinks in a day 10 times. Has an alcoholic beverage 0-1 day(s) a week. Typically has 0-1 drinks per day. ROS: Constitutional: The patient denied fatigue, fever, insomnia, night sweats, recent illness and weight loss. Eyes: The patient denied eye pain, photophobia, vision change and visual disturbance. Ears/Nose/Throat/Neck: The patient denied hearing loss, nasal discharge, sinus congestion and sore throat. Cardiovascular: The patient denied arrhythmia, chest pain/pressure, edema, exercise intolerance, orthopnea and palpitations. Respiratory: The patient denied asthma, cough, dyspnea/shortness of breath, pleuritic pain, productive sputum and wheezing. Gastrointestinal: The patient denied abdominal pain, constipation, diarrhea, gastroesophageal reflux, hemorrhoids, melena, nausea and vomiting. Genitourinary/Nephrology: The patient complained of vaginal discharge but denied dysuria, nocturia and urinary incontinence. Musculoskeletal: The patient denied muscle weakness, myalgias, stiffness and swelling. Dermatologic: The patient denied itching and rash. Neurologic: The patient complained of headache (daily tension headaches) but denied dizziness, memory loss, mental status change and syncope. Psychiatric: The patient complained of anxiety but denied depression, insomnia and mood swings. Endocrine: The patient denied goiter and polyuria. Hematologic/Lymphatic: The patient denied abnormal bleeding and bruising, abnormal ecchymoses, anemia, lymph node enlargement/mass and petechiae. Allergy/Immunology: The patient denied food allergy. Vital Signs: data collected on 01/25/2010 01:04:13 PM by Korina Álvarez weight is 155 pounds clothed height is 6 feet body mass index is 23.91 Kg/m2 sitting heart rate is 56 bpm regular blood pressure at Left Arm while Sitting is 102/66 mmHg PE: Constitutional: GENERAL APPEARANCE: Overall: well nourished, well developed and in no acute distress. Eyes: CONJUNCTIVA/EYELIDS: Overall: conjunctiva clear, cornea clear and eyelids normal; PUPILS AND IRISES: Overall: pupils equal, round, reactive to light and accomodation. Ears/Nose/Throat: EXTERNAL EAR: Overall: normal appearance; EXTERNAL NOSE: Overall: benign appearance, no masses and non-tender; OTOSCOPIC EXAM: Overall: external auditory canals clear and tympanic membranes clear; LIPS/TEETH/GINGIVA: Overall: benign lips, normal dentition, benign gingiva and no masses; ORAL CAVITY/PHARYNX/LARYNX: Overall: tonsils benign, oropharyngeal mucosa clear and no masses. Neck: THYROID: Overall: normal size, normal consistency, nontender and no mass lesions. Respiratory: AUSCULTATION: Overall: breath sounds clear bilaterally; RESPIRATORY EFFORT/RHYTHM: Overall: no retractions and normal rate. Cardiovascular: AUSCULTATION OF HEART: Overall: regular rate, regular rhythm, normal heart sounds and no murmurs; INSPECTION OF CAROTID PULSES: Overall: strong, bilaterally equal, no bruits; EXTREMITIES: Overall: no clubbing and no edema. Chest/Breast: BREAST AND AXILLAE PALPATION: Overall: breasts non-tender and no nipple discharge; BREAST/CHEST INSPECTION: Overall: breasts to symmetric and without lesions and normal chest shape. Abdomen: ABDOMINAL EXAM: Overall: no tenderness and normal bowel sounds; LIVER AND SPLEEN EXAM: Overall: no hepatosplenomegaly; HERNIA EXAM: Overall: no hernias present. Genitourinary: UTERUS: Overall: normal size, normal contour, normal shape, normal mobility, nontender and no mass; CERVIX: Overall: no cervical motion tenderness, no discharge and no lesions; LABIA AND VAGINA: Overall: normal hair distribution, no discharge and no lesions; ADNEXA/PARAMETRIA: Overall: no tenderness, no enlargement, no mass lesions and normal size; URETHRA: Overall: no masses. Lymphatic: NECK NODES: Overall: anterior cervical chain benign and posterior cervical chain benign; OTHER NODES: Overall: supraclavicular chain benign; AXILLA/ARM NODES: Overall: axillary non-tender, not enlarged. Musculoskeletal: HEAD AND NECK: Overall: head atraumatic and cervical spine benign; DIGITS AND NAILS: Overall: no clubbing and digits benign; SPINE, RIBS AND PELVIS: Overall: good posture, ribs benign and spine benign; GAIT AND STATION: Overall: normal gait and normal station. Integument: INSPECTION OF SKIN: Overall: no rash, lesions. Neurologic: DEEP TENDON REFLEXES: Overall: deep tendon reflexes intact; SENSATION: Overall: intact to touch; MENTAL STATUS: Overall: alert and oriented; MOTOR: Overall: normal bulk, tone. Psychiatric: ORIENTATION/CONSCIOUSNESS: Overall: oriented to person, place and time; MOOD AND AFFECT: Overall: normal mood and affect; APPEARANCE: Overall: well-groomed, good eye contact. Dx: (V70.0) - C - ROUTINE MEDICAL EXAM (V72.31) - C - Screening, pap (V73.81) - C - HPV Screening (Human Papillomavirus Screening) (V77.1) - C - Screening, diabetes (V77.91) - C - Screening, lipids (V77.0) - C - Screening, thyroid disorders (V06.1) - C - DTAP/Tdap vaccination Rx: None Plan: A return visit is indicated in 1year. She was given this form: 'Patient Medication Summary'. Patient Instructions: None documented in this encounter Plan of Treatment Not on file documented as of this encounter Visit Diagnoses Not on filedocumented in this encounter Care Teams Digital Forensic Examiner Relationship Specialty Start Date End Date [place] Bishop PCP - General Family Practice [facility]23/19 [facility] [address] [place] [address] PCP - General 12/03/22 documented as of this encounter
--- OUTSIDE RECORDS SUMMARY | 2023-10-25 02:36 | XMS_ITS | Encounter Summary ---
Author Name Unknown Organization [facility] Address [address] [place] [address] Care Team Providers Care Stringer Machine Tender Name Role Phone Juan Treadwell PA-C Primary Care Provider Reason for Visit * Reason Comments RESULTS, TEST Encounter Details Date Type Department Care Team (Late st Contact Info) Description 10/01/2023 Telephone [place] [facility] [address] [place] [phone] Juan Treadwell PA-C [address] [place] [address] RESULTS, TEST Social History Tobacco Use Types Packs/Day Years [...] on file documented as of this encounter Nursing Notes * Rosina Ortiz, RN - 10/01/2023 3:47 PM CDT Spoke to patient regarding labs, questions answered. * Maru Bain V - 10/01/2023 3:29 PM CDT Test Results What test are you calling about? All labs have been done 09/28 Primary Rolled Ham Lacer: Juan Treadwell PA-C Who ordered the test? Dejah Ng MD Family Practice When and where was the test done? Additional comments (related to the above concern): Patient is calling to review results and discuss symptoms If a prescription is needed, patient would like it filled at the pharmacy listed in Medication Management. Is it okay to leave a detailed message on your voicemail? Yes Is there anything else I can help you with today? documented in this encounter Plan of Treatment Not on file documented as of this encounter Visit Diagnoses Not on filedocumented in this encounter Care Teams Stringer Machine Tender Relationship Specialty Start Date End Date Juan Treadwell PA-C [address] [place] [address] PCP - General 11/01/13 documented as of this encounter
--- OUTSIDE RECORDS SUMMARY | 2023-10-25 02:36 | XMS_ITS | Encounter Summary ---
Author Name Unknown Organization [facility] Address [address] [place] [address] Care Team Providers Care Food Technician Name Role Phone Juan Treadwell PA-C Primary Care Provider [phone] Encounter Details Date Type Department Care Team (Late st Contact Info) Description 10/01/2023 5:40 PM CDT Lab Visit [facility] [address] [place] [address] Pelvic pain in female Social History Tobacco Use Types Packs/Day Years [...] Procedure Name Priority Date/Time Associated Diagnosis Comments UA WITH MICROSCOPIC STAT 10/01/2023 5 :44 PM CDT Pelvic pain in female TEST (URINE) STAT 10/01/2023 5:44 PM CDT Pelvic pain in female CBC AND DIFFERENTIAL PANEL STAT 10/01/2023 5:37 PM CDT Pelvic pain in female COMPLETE BLOOD COUNT-W/DIFF STAT 10/01/2023 5:37 PM CDT Pelvic pain in female BASIC METABOLIC PANEL STAT 10/01/2023 5:37 PM CDT Pelvic pain in female C-REACTIVE PROTEIN STAT 10/01/2023 5: 37 PM CDT Pelvic pain in female documented in this encounter Results * Test (Urine) - Collect in Lab (10/01/2023 5:44 PM CDT) HCG, Urine Negative Negative 10/01/2023 5:52 PM CDT [facility] Urine Non-blood Collection / Unknown 10/01/2023 5:44 PM CDT 10/01/2023 5:48 PM CDT Belén Arcos MD LAB_1 [facility] [address] [place] [address] * (ABNORMAL) UA with Microscopic: Clean Catch (10/01/2023 5:44 PM CDT) Urine Color Straw 10/01/2023 5:59 PM CDT [facility] Urine Clarity Hazy(A) Clear 10/01/2023 5:59 PM CDT [facility] Specific [place], Urine 1.025 1.005 - 1.030 10/01/2023 5:59 PM CDT [facility] PH Urine 6.0 5.0 - 8.0 10/01/2023 5:59 PM CDT [facility] Protein, Urine Qual (mg/dL) Negative Neg/Trace 10/01/2023 5:59 PM CDT [facility] Glucose Urine Qual (mg/dL) Negative Negative 10/01/2023 5:59 PM CDT [facility] Ketones, Urine (mg/dL) Negative Negative 10/01/2023 5:59 PM CDT [facility] Urobilinogen, Urine (EU/dL) 0.2 <2.0 10/01/2023 5:59 PM CDT [facility] Bilirubin Urine Negative Negative 10/01/2023 5:59 PM CDT [facility] Blood, Urine Negative Neg/Trace 10/01/2023 5:59 PM CDT [facility] Nitrite Urine Negative Negative 10/01/2023 5:59 PM CDT [facility] Leukocyte Est. Moderate(A) Negative 5:59 PM CDT [facility] Red Blood Cells 0-3 0 - 3 /HPF 10/01/2023 5:59 PM CDT [facility] White Blood Cells 21-50(A) 0 - 5 /HPF 10/01/2023 5:59 PM CDT [facility] Bacteria Occasional(A ) None Seen /HPF 10/01/2023 5:59 PM CDT [facility] Squamous Epithelial Cells Few None Seen, Occasional, Few /HPF 10/01/2023 5:59 PM CDT [facility] Mucus Present(A) None Seen /HPF 10/01/2023 5:59 PM CDT [facility] White Blood Cell Clumps Present(A) None Seen /HPF 10/01/2023 5:59 PM CDT [facility] Urine Source Clean Catch 10/01/2023 5:59 PM CDT [facility] Urine URINE SPECIMEN COLLECTION, CLEAN CATCH / Unknown Non-blood Collection / Unknown 10/01/2023 5:44 PM CDT 10/01/2023 5:44 PM CDT Belén Arcos MD LAB_1 [facility] [address] [place] [address] * (ABNORMAL) Complete Blood Count-W/Diff (10/01/2023 5:37 PM CDT) WBC 13.0(H) 3.5 - 10.5 x10(9)/L 10/01/2023 5:41 PM [facility] RBC 4.80 3.90 - 5.03 x10(12)/L 10/01/2023 5:41 PM [facility] Hemoglobin 14.5 12.0 - 15.5 g/dL 10/01/2023 5:41 PM [facility] HCT 43.0 34.9 - 44.5 % 10/01/2023 5:41 PM [facility] MCV 89.6 80.0 - 100.0 fL 10/01/2023 5:41 PM [facility] MCH 30.2 27.6 - 33.3 pg 10/01/2023 5:41 PM [facility] MCHC 33.7 31.5 - 35.2 g/dL 10/01/2023 5:41 PM [facility] RDW 13.2 11.9 - 15.5 % 10/01/2023 5:41 PM [facility] Platelets 270 150 - 450 x10(9)/L 10/01/2023 5:41 PM [facility] Automated NRBC 0 <=0 /100 WBC 10/01/2023 5:41 PM [facility] Neutrophil Absolute 9.4(H) 1.7 - 7.0 10(9)/L 10/01/2023 5:41 PM [facility] Lymphocyte Absolute 2.1 1.0 - 4.8 10(9)/L 10/01/2023 5:41 PM [facility] Monocyte Absolute 1.1(H) 0.2 - 0.9 10(9)/L 10/01/2023 5:41 PM [facility] Eosinophil Absolute 0.2 0.0 - 0.5 10(9)/L 10/01/2023 5:41 PM [facility] Basophil Absolute 0.1 0.0 - 0.3 10(9)/L 10/01/2023 5:41 PM [facility] Immature Granulocyte % 1.5(H) 0.0 - 0.5 % 10/01/2023 5:41 PM [facility] Blood Venipuncture / Unknown 10/01/2023 5:37 PM CDT 10/01/2023 5:39 PM CDT Belén Arcos MD LAB_1 Performing Organization Address [facility] Co de Phone Number [facility] [address] [place] [address] * (ABNORMAL) Basic Metabolic Panel (10/01/2023 5:37 PM CDT) Pathologist [facility] Sodium 137 136 - 145 mmol/L 10/01/2023 5:58 PM [facility] Potassium 4.4 3.5 - 5.1 mmol/L 10/01/2023 5:58 PM [facility] Chloride 104 98 - 109 mmol/L 10/01/2023 5:58 PM [facility] CO2 25 20 - 29 mmol/L 10/01/2023 5:58 PM [facility] Anion Gap 8 7 - 16 mmol/L 10/01/2023 5:58 PM [facility] Calcium 9.1 8.4 - 10.4 mg/dL 10/01/2023 5:58 PM [facility] BUN 16 7 - 26 mg/dL 10/01/2023 5:58 PM [facility] Creatinine 0.66 0.55 - 1.02 mg/dL 10/01/2023 5:58 PM [facility] Glucose 113(H) 70 - 100 mg/dL 10/01/2023 5:58 PM [facility] Comment:The given reference range is for the fasting state. Non-fasting reference range for glucose is 70 - 180 mg/dL. GFR, Estimated >60 >60 mL/min/1.7 3m2 10/01/2023 5:58 PM [facility] Hours Fasting 0.1 8 - 12 Hours 10/01/2023 5:58 PM [facility] Comment:Lab unable to obtain patient's fasting status at time of specimen collection. Blood Venipuncture / Unknown 10/01/2023 5:37 PM CDT 10/01/2023 5:39 PM CDT Belén Arcos MD LAB_1 Performing Organization Address [facility]/State/ZIP Co de Phone Number [facility] [address] [place] [address] * (ABNORMAL) C-Reactive Protein (10/01/2023 5:37 PM CDT) C-Reactive Protein 0.8(H) 0.0 - 0.5 mg/dL 10/01/2023 5:58 PM CDT [facility] Blood Venipuncture / Unknown 10/01/2023 5:37 PM CDT 10/01/2023 5:39 PM CDT Belén Arcos MD LAB_1 [facility] [address] [place] [address] documented in this encounter Visit Diagnoses Diagnosis Pelvic pain in female Unspecified symptom associated with female genital organs documented in this encounter Care Teams Food Technician Relationship Specialty Start Date End Date Juan Treadwell PA-C [facility] [place] [address] PCP - General 11/01/13 documented as of this encounter
--- OUTSIDE RECORDS SUMMARY | 2023-10-25 02:36 | XMS_ITS | Encounter Summary ---
Author Name Unknown Organization [facility] Address [address] [place] [address] Care Team Providers Care Editing Intern Name Role Phone Eloy Bishop Primary Care Provider Samia wialicia [facility], Kirstin Lyons Primary Care Provide r Encounter Details Date Type Department Care Team (Late st Contact Info) Description 09/11/2011 Clinic Report (Licensed Massage Practitioner) [address] [phone] Madie Murray MD NO INFO AVAILABLE 09/17/2022 Social History Tobacco Use Types Packs/Day Years Used Date Smoking Tobacco: Never Assessed Sex and Gender Information Value Date Recorded Sex Assigned at Not on file Gender Identity Not on file Sexual Orientation Not on file documented as of this encounter Progress Notes * Madie Murray MD - 05/28/2012 7:48 PM CST CC/HPI: 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 She presented for well woman exam (18-39 years). Current contraception practice includes bilateral tubal ligation. Pap smear history is significant for last normal performed on 01-25-2010, thin prep, normal results and HPV negative 2009. Menstrual history includes menarche at age 16 and last menstrual period 08-20-2011. Obstetrical history reveals 6 total pregnancies, 3 full term, 2 therapeutic , 1 spontaneous and 3 living children. The patient is sexually active and is monogamous. Gynecological complaints include none. Lifestyle is remarkable for no history of physical abuse, no history of sexual abuse, no history of verbal abuse and regular seatbelt use. Health maintenance issues include normal weight and no exercise. Body Mass Index is normal BMI between 18.5 and 24.9. Cardiovascular risk factors include none. Reproductive development history shows normal development and normal genitalia. Patient received health guidance in self-breast exam and tobacco, drugs and alcohol avoidance quit smoking with third baby (girl) Irina. The patient received tetanus-diphtheria booster Tdap 2009. When asked about alcoholic beverage use, patient responds yes, screening will continue. In the past year, has had 4 or more drinks in a day never, screening is complete. Has an alcoholic beverage <1 day(s) a week gets hives- usually drinks once a month.. Typically has 4 drinks per day. ROS: Constitutional: The patient [...] melena, nausea and vomiting. Genitourinary/Nephrology: The patient denied dysuria, nocturia and urinary incontinence. Musculoskeletal: The patient denied muscle weakness, myalgias, stiffness and swelling. Dermatologic: The patient denied itching and rash. Neurologic: The patient denied dizziness, headache, memory loss, mental status change and syncope. Psychiatric: The patient denied anxiety, depression, insomnia and mood swings. Endocrine: The patient denied goiter and polyuria. Hematologic/Lymphatic: The patient denied abnormal bleeding and bruising, abnormal ecchymoses, anemia, lymph node enlargement/mass and petechiae. Allergy/Immunology: The patient denied food allergy. Vital Signs: data collected on 09/11/2011 02:29:19 PM by Aurora Strickland weight is 153 pounds clothed height is 6 feet body mass index is 23.96 Kg/m2 sitting heart rate is 72 bpm regular blood pressure at Left Arm while Sitting is 110/70 mmHg PE: Constitutional: GENERAL APPEARANCE: Overall: well [...] EXAM (V72.31) - C - Screening, pap Rx: None Plan: A return visit is indicated in 1year. She was given this form: 'Patient Medication Summary'. Patient Instructions: None documented in this encounter Plan of Treatment Not on file documented as of this encounter Visit Diagnoses Not on filedocumented in this encounter Care Teams Editing Intern Relationship Specialty Start Date End Date Eloy Bishop PCP - General Family Practice 06/23/19 12/02/22 [facility], Kirstin Lyons [facility] [place] [address] PCP - General 12/03/22 documented as of this encounter
--- OUTSIDE RECORDS SUMMARY | 2023-10-25 02:36 | XMS_ITS | Encounter Summary ---
Author Name Unknown Organization [facility] Address [address] [place] [address] Care Team Providers Care Ophthalmic Medical Technician Name Role Phone Eloy Bishop Primary [facility] Encounter Details Date Type Department Care Team (Late st Contact Info) Description 07/24/2010 Clinic Report (Print Journalist) [address] [phone] [place] [address] [facility] [place] [address] Social History Tobacco Use Types Packs/Day Years Used Date Smoking Tobacco: Never Assessed Sex and Gender Information Value Date Recorded Sex Assigned at Not on file Gender Identity Not on file Sexual Orientation Not on file documented as of this encounter Progress Notes * Rupinder Hanson DO - 05/29/2012 12:48 AM CST CC/HPI: new partner recently. sore throat recently which has improved on its own hx tubal ligation pt would like gonorrhea/chlamydia testing in oral and cervix regions as recent sex in both regions with new partner. no known exposure to stds however per pt She presented with sore throat. The symptom is gradual in onset. The symptom started a few weeks ago. Patient denies tobacco use. Associated signs and symptoms include occas cough. In addition, she presented with STD screening. Disease exposure includes none. Patient denies fever. ROS: when teenager, maybe question of genital warts but no recurrence since then per pt Constitutional: The patient complained of recent illness (recent uri) but denied fever. Ears/Nose/Throat/Neck: The patient complained of nasal discharge and sore throat (getting better on own) but denied nosebleed. Respiratory: The patient complained of cough (minimal) but denied asthma, cigarette smoking and dyspnea/shortness of breath. Gastrointestinal: The patient denied diarrhea and vomiting. Genitourinary/Nephrology: The patient complained of vaginal discharge (chronic, no new change) but denied . Dermatologic: The patient denied rash and sores. Neurologic: The patient denied paresthesia. Endocrine: The patient denied diabetes mellitus type 1 and diabetes mellitus type 2. Hematologic/Lymphatic: The patient denied abnormal bleeding and bruising. Allergy/Immunology: The patient denied food allergy. Vital Signs: data collected on 07/24/2010 07:35:07 AM by Rupinder Cordova weight is 150 pounds clothed temperature is 96.7 F sitting heart rate is 78 bpm radial regular blood pressure at Left Arm while Sitting is 104/62 mmHg PE: Constitutional: GENERAL APPEARANCE: Overall: well nourished, well developed and in no acute distress. Eyes: CONJUNCTIVA/EYELIDS: Overall: conjunctiva clear. Ears/Nose/Throat: OTOSCOPIC EXAM: Overall: tympanic membranes clear; INTERNAL NOSE: Drainage: clear and thin; ORAL CAVITY/PHARYNX/LARYNX: Overall: oropharyngeal mucosa clear. Neck: INSPECTION OF NECK: Overall: normal size. Respiratory: AUSCULTATION: Overall: breath sounds clear bilaterally. Cardiovascular: AUSCULTATION OF HEART: Overall: regular rate, regular rhythm, normal heart sounds and no murmurs. Abdomen: ABDOMINAL EXAM: Overall: no tenderness and normal bowel sounds. Genitourinary: CERVIX: Overall: pelvic exam negative; Cervical discharge: yellow; LABIA AND VAGINA: Overall: normal external genitalia. Lymphatic: NECK NODES: Overall: anterior cervical chain benign and posterior cervical chain benign. Integument: INSPECTION OF SKIN: Overall: no rashes. Dx: (616.10) - C - Bacterial vaginitis (623.5) - C - Vaginal discharge (V74.5) - C - Screening, STD (V73.89) - C - Screening, hepatitis (462) - C - Pharyngitis (465.9) - C - Upper respiratory infection, acute, NOS Rx: Metronidazole 0.75 % Vaginal Gel, 1 Application, VAG, QHS, 5 days, for a total of qs, start on July 24, 2010, end on July 28, 2010, no etoh while on this medication.. Plan: chlamydia and gonnorrhea tests done in 2 regions, cervix and pharyngeal, at pt request. std screening. no known exposure to stds per pt. cbc-ok mono-neg strep-neg t&m-clue cells no douching [as pt admits to recent douching now] metrovag gel. no etoh while on this med. note for work am's appt, she would like written that strep is neg on note, would like to go back to work now. std screening tests pending, pt aware of false positive/negative potential. Symptomatic measures. I advised patient to have a recheck doctor appointment in the next 24-48 hours if significant improvement not noted by that time, follow-up earlier as needed. I advised patient to make a recheck doctor appointment in 2 weeks if complete resolution not noted by that time. I reviewed the risks, benefits, and alternatives of plan, and the patient understands, agrees, and wishes to proceed. She was given this form: 'Patient Medication Summary'. 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 [address] [place] [address] PCP - General 12/03/22 documented as of this encounter
--- OUTSIDE RECORDS SUMMARY | 2023-10-25 02:36 | XMS_ITS | Encounter Summary ---
Author Name Unknown Organization [facility] Address [address] [place] [address] Care Team Providers Care As400 Programmer Analyst Name Role Phone Juan Treadwell PA-C Primary Care Provider [phone] Reason for Visit * Reason Comments Vaginal Discharge Encounter Details Date Type Department Care Team (Late st Contact Info) Description 09/29/2023 12:20 PM CDT Office Visit [facility] [address] [place] [address] Dejah Ng MD [address] [place] [address] Frequency of urination; Vaginal discharge; Acute cystitis without hematuria Social History Tobacco Use Types Packs/Day Years [...] on file documented as of this encounter Last Filed Vital Signs Vital Sign Reading Time Taken Comments Blood Pressure 141/92 09/29/2023 12:24 PM CDT Pulse 93 09/29/2023 12:24 PM CDT Temperature 36.6 ??C (97.9 ??F) 09/29/2023 12:24 PM C DT Respiratory Rate 18 09/29/2023 12:24 PM CDT Oxygen Saturation 97% 09/29/2023 12:24 PM CDT Inhaled Oxygen Concentration - - Weight - - Height - - Body Mass Index - - documented in this encounter Patient Instructions * Patient Instructions* Dejah Ng MD - 09/29/2023 12:20 PM CDT Based on your symptoms, exam and urinalysis you have been diagnosed as having a urinary tract infection (UTI). Most UTI's can be treated with oral antibiotics quite easily. Unfortunately some of the bacteria that cause UTI's can have resistance to some antibiotics. For this reason we are sending your urine for a culture to grow the bacteria causing the infection. When this test result comes back if it shows that your bacteria are resistant to the antibiotic you received today then we will change it. If it does not grow any bacteria or it shows that the antibiotic you have will take care of itthey will not call those results but they will be in your MyChart if you have that. It takes a few days for urine culture results to come back. In the meantime: Go to the Emergency Department or return to Urgent Care if: 1: You are vomiting or having intense pain in your back or bladder area. 2: You are having a new fever over 101> Drink a lot of water and take all of your medication as prescribed unless advised otherwise becauseof the urine culture results. You may take an over the counter medication called Azo, or it may be prescribed for you for the discomfort in the bladder. This medication turns the urine bright orange. If there was blood in the urine on your original urinalysis we recommend a follow up urinalysis after you have completed the antibiotics to show resolution of this finding. If the blood is still present then additional testing may be recommended. If your symptoms worsen, do not completely resolve or return quickly please follow up with your regular doctor or return to Urgent Care. * Attachments The following attachments cannot be sent through Care Everywhere. * UTI (Urinary Tract Infection): Female (Estonian) documented in this encounter Progress Notes * Dejah Ng MD - 09/29/2023 12:20 PM CDT [facility] Patient: Ness Oliva Date of : 1975 (47 y.o.) Subjective Nursing Notes: Gera Germain LPN 09/29/23 1224 Signed Ness Oliva is a 47 y.o.female presents to the Urgent Care for Vaginal Discharge Are you experiencing any odor? No Are you experiencing any itching? No Are you experiencing any burning? No Are you experiencing any discharge? Yes, white and yellow Are you experiencing any fevers? No Are you experiencing any abdominal pain/bloating? YES Are you experiencing any painful/frequent urination? YES How long have you had these symptoms? 4 day(s) Are you using any over the counter products to treat your symptoms? No Have you had similar symptoms? No Are you currently sexually active? YES Any new partners in the past 3 months? No Any concerns for STI(sexually transmitted infection) and/or would like to be tested today? No Are you currently using contraception? No Any use of antibiotics in the last month? No Patient requests an excuse letter for work/school: No Chief Complaint: Chief Complaint Patient presents with Vaginal Discharge History of Present Illness: Ness Oliva is a 47 y.o.female presents with symptoms of vaginal discharge, but also urinary urgency and pelvic discomfort. No incontinence and no fever, vomiting. No blood in urine. Discharge is mucosy, yellow. Adverse Drug Reactions: Patient has no known allergies. Social History: Social History Tobacco Use Smoking status: Former Current packs/day: 0.00 Types: Cigarettes Quit date: 09/09/2006 Years since quittin.0 Smokeless tobacco: Never Vaping Use Vaping status: Never Used Substance Use Topics Alcohol use: Yes Comment: occ. Drug use: No Review of Systems: Review of Systems is negative except as noted above. Objective Physical Exam: Vitals Signs: BP (!) 141/92 (BP Location: Right Arm, BP Cuff Size: Regular - Long) Pulse 93 Temp 36.6 ??C (97.9 ??F) (Oral) Resp 18 LMP 09/13/2023 (Exact Date) SpO2 97% General: NAD Abdomen: Soft and nontender without guarding rebound or masses. Genitourinary exam: Normal external genitalia. Vaginal vault is well rugated. Yellow mucosy discharge noted. no adnexal tenderness but is tender over the bladder or uterus. Cervix: nl Laboratory Testing: Results for orders placed or performed in visit on 09/29/23 Urinalysis Routine, Micro/Culture if Pos: Clean Catch Specimen: Clean Catch; Urine Result Value Ref Range Urine Culture Comment Urinalysis results meet criteria for reflex, culture performed. Urine Color Yellow Urine Clarity Clear Clear Specific Mineral, Urine 1.020 1.005 - 1.030 PH Urine 7.0 5.0 - 8.0 Protein, Urine Qual (mg/dL) Negative Neg/Trace Glucose Urine Qual (mg/dL) Negative Negative Ketones, Urine (mg/dL) Negative Negative Urobilinogen, Urine (EU/dL) 0.2 <2.0 Bilirubin Urine Negative Negative Blood, Urine Negative Neg/Trace Nitrite Urine Negative Negative Leukocyte Est. Small (A) Negative Urine Source Clean Catch Urine Microscopic Evaluation: Clean Catch Specimen: Clean Catch; Urine Result Value Ref Range Red Blood Cells 0-3 0 - 3 /HPF White Blood Cells 21-50 (A) 0 - 5 /HPF Bacteria Few (A) None Seen /HPF Squamous Epithelial Cells Few None Seen, Occasional, Few /HPF Interventions: Orders Placed This Encounter Urinalysis Routine, Micro/Culture if Pos: Clean Catch Urine Microscopic Evaluation: Clean Catch Urine Culture Vaginitis Panel (Includes Bacterial Vaginosis, Nette Species, Nette Glabrata and Trichomonas Vaginalis.) Chlamydia & GC (14 Years and Older): Vagina nitrofurantoin monohydrate macrocrystal (MACROBID) 100 MG capsule MDM: Given the symptoms and urine findings we are treating for urinary tract infection but also vagswab ordered and anything that shows up there will need treatment and urine culture also pending Assessment Impression: 1. Frequency of urination 2. Vaginal discharge 3. Acute cystitis without hematuria Plan AVS given. New Prescriptions NITROFURANTOIN MONOHYDRATE MACROCRYSTAL (MACROBID) 100 MG CAPSULE Take 1 Capsule (100 mg) by mouth two times a day for 7 days. Patient Instructions Based on your symptoms, exam and urinalysis you have been diagnosed as having a urinary tract infection (UTI). Most UTI's can be treated with oral antibiotics quite easily. Unfortunately some of the bacteria that cause UTI's can have resistance to some antibiotics. For this reason we are sending your urine for a culture to grow the bacteria causing the infection. When this test result comes back if it shows that your bacteria are resistant to the antibiotic you received today then we will change it. If it does not grow any bacteria or it shows that the antibiotic you have will take care of itthey will not call those results but they will be in your MyChart if you have that. It takes a few days for urine culture results to come back. In the meantime: Go to the Emergency Department or return to Urgent Care if: 1: You are vomiting or having intense pain in your back or bladder area. 2: You are having a new fever over 101> Drink a lot of water and take all of your medication as prescribed unless advised otherwise becauseof the urine culture results. You may take an over the counter medication called Azo, or it may be prescribed for you for the discomfort in the bladder. This medication turns the urine bright orange. If there was blood in the urine on your original urinalysis we recommend a follow up urinalysis after you have completed the antibiotics to show resolution of this finding. If the blood is still present then additional testing may be recommended. If your symptoms worsen, do not completely resolve or return quickly please follow up with your regular doctor or return to Urgent Care. Dejah Ng MD documented in this encounter Nursing Notes * Gera Germain LPN - 09/29/2023 12:20 PM CDT Ness Oliva is a 47 y.o.female presents to the Urgent Care for Vaginal Discharge Are you experiencing any odor? No Are you experiencing any itching? No Are you experiencing any burning? No Are you experiencing any discharge? Yes, white and yellow Are you experiencing any fevers? No Are you experiencing any abdominal pain/bloating? YES Are you experiencing any painful/frequent urination? YES How long have you had these symptoms? 4 day(s) Are you using any over the counter products to treat your symptoms? No Have you had similar symptoms? No Are you currently sexually active? YES Any new partners in the past 3 months? No Any concerns for STI(sexually transmitted infection) and/or would like to be tested today? No Are you currently using contraception? No Any use of antibiotics in the last month? No Patient requests an excuse letter for work/school: No documented in this encounter Plan of Treatment Not on file documented as of this encounter Procedures Procedure Name Priority Date/Time Associated Diagnosis Comments VAGINITIS PANEL Routine 09/29/2023 1:26 PM CDT Vaginal discharge CHLAMYDIA & GC (14 YEARS & OLDER) Routine 09/29/2023 1:26 PM CDT Vaginal discharge URINE CULTURE STAT 09/29/2023 12:26 PM CDT Frequency of urination URINALYSIS ROUTINE, MICRO/CULTURE IF POS STAT 09/29/2023 12:26 PM CDT Frequency of urination UA MICRO STAT 09/29/2023 12:26 PM CDT Frequency of urination documented in this encounter Results * Chlamydia & GC (14 Years and Older): Vagina (09/29/2023 1:26 PM CDT) Chlamydia Trachomatis STD Not Detected Not Detected 09/30/2023 2:27 PM CDT [facility] N. gonorrhoeae STD Not Detected Not Detected 09/30/2023 2:27 PM CDT [facility] Swab STD SPECIMEN FROM VAGINA / Unknown Non-blood Collection / Unknown 09/29/2023 1:26 PM CDT 09/29/2023 1:29 PM CDT [facility] - 09/30/2023 2:27 PM CDT Test performed by Music Store Manager Mediated Amplification (TMA). Dejah Ng MD LAB_1 Performing Organization Address [facility]/ZIP Co de Phone Number [facility] [address] * Vaginitis Panel (Includes Bacterial Vaginosis, Nette Species, Nette Glabrata and Trichomonas Vaginalis.) (09/29/2023 1:26 PM CDT) Bacterial Vaginosis Negative Negative 09/30/2023 12:55 PM CDT [facility] Nette species Negative Negative 12:55 PM CDT [facility] Nette glabrata Negative Negative 09/30/2023 12:55 PM CDT [facility] Trichomonas vaginalis Negative Negative 09/30/2023 12:55 PM CDT [facility] Swab STD SPECIMEN FROM VAGINA / Unknown Non-blood Collection / Unknown 09/29/2023 1:26 PM CDT 09/29/2023 1:29 PM CDT Narrative [facility] - 09/30/2023 12:55 PM CDT Test performed by Music Store Manager Mediated Amplification (TMA). Dejah Ng MD LAB_1 Performing Organization Address [facility] Co de Phone Number [facility] [address] * (ABNORMAL) Urine Culture (09/29/2023 12:26 PM CDT) Pathologist [facility] Urine Culture Growth(A) 09/30/2023 4:35 PM CDT [facility] Urine Culture <10,000 CFU/mL Mixed Bacterial Growth 09/30/2023 4:35 PM CDT [facility] Comment: Mixed Bacterial Growth indicates the specimen is likely contaminated at collection with urogenital and/or fecal rosa. The presence of organisms at <10,000 cfu/ml in culture, UTI unlikely. Urine URINE SPECIMEN COLLECTION, CLEAN CATCH / Unknown Non-blood Collection / Unknown 09/29/2023 12:26 PM CDT 09/29/2023 12:45 PM CDT Ryan [facility] LAB_1 Performing Organization Address City/[facility]/ZIP Co de Phone Number [address] [address], [facility] * (ABNORMAL) Urine Microscopic Evaluation: Clean Catch (09/29/2023 12:26 PM CDT) Red Blood Cells 0-3 0 - 3 /HPF 12:45 PM CDT [facility] White Blood Cells 21-50(A) 0 - 5 /HPF 09/29/2023 12:45 PM CDT [facility] Bacteria Few(A) None Seen /HPF 09/29/2023 12:45 PM CDT [facility] Squamous Epithelial Cells Few None Seen, Occasional , Few /HPF 09/29/2023 12:45 PM CDT [facility] Urine URINE SPECIMEN COLLECTION, CLEAN CATCH / Unknown Non-blood Collection / Unknown 09/29/2023 12:26 PM CDT 09/29/2023 12:35 PM CDT Ryan Leahy [facility] LAB_1 Performing Organization Address [facility] Co de Phone Number [facility] [address] [place] [address] * (ABNORMAL) Urinalysis Routine, Micro/Culture if Pos: Clean Catch (09/29/2023 12:26 PM CDT) Pathologist [facility] Urine Culture Comment Urinalysis results meet criteria for reflex, culture performed. 09/29/2023 12:45 PM CDT [facility] Urine Color Yellow 09/29/2023 12:45 PM CDT [facility] Urine Clarity Clear Clear 09/29/2023 12:45 PM CDT [facility] Specific Mineral, Urine 1.020 1.005 - 1.030 09/29/2023 12:45 PM CDT [facility] PH Urine 7.0 5.0 - 8.0 09/29/2023 12:45 PM CDT [facility] Protein, Urine Qual (mg/dL) Negative Neg/Trace 09/29/2023 12:45 PM CDT [facility] Glucose Urine Qual (mg/dL) Negative Negative 09/29/2023 12:45 PM CDT [facility] Ketones, Urine (mg/dL) Negative Negative 09/29/2023 12:45 PM CDT [facility] Urobilinogen, Urine (EU/dL) 0.2 <2.0 09/29/2023 12:45 PM CDT [facility] Bilirubin Urine Negative Negative 09/29/2023 12:45 PM CDT [facility] Blood, Urine Negative Neg/Trace 09/29/2023 12:45 PM CDT [facility] Nitrite Urine Negative Negative 09/29/2023 12:45 PM CDT [facility] Leukocyte Est. Small(A) Negative 09/29/2023 12:45 PM CDT [facility] Urine Source Clean Catch 09/29/2023 12:45 PM CDT [facility] Urine URINE SPECIMEN COLLECTION, CLEAN CATCH / Unknown Non-blood Collection / Unknown 09/29/2023 12:26 PM CDT 09/29/2023 12:35 PM CDT Ryan [facility] LAB_1 Performing Organization Address City/State/[facility] Co de Phone Number [facility] [address] [place] [address] documented in this encounter Visit Diagnoses Diagnosis Frequency of urination Urinary frequency Vaginal discharge Leukorrhea, not specified as infective Acute cystitis without hematuria Acute cystitis documented in this encounter Care Teams As400 Programmer Analyst Relationship Specialty Start Date End Date Juan Treadwell PA-C [address] [place] [address] PCP - General 11/01/13 documented as of this encounter
--- OUTSIDE RECORDS SUMMARY | 2023-10-25 02:36 | XMS_ITS | Encounter Summary ---
Author Name Unknown Organization [facility] Address [address] [place] [address] Care Team Providers Care Health Evaluator Name Role Phone Eloy Bishop Primary Care Provider Samia romero [facility] Provide r Encounter Details Date Type Department Care Team (Late st Contact Info) Description 06/13/2011 Clinic Report (Sugar Controller) [address] [phone] [place] [address] [facility] [address] [place], [place] [id number] Social History Tobacco Use Types Packs/Day Years Used Date Smoking Tobacco: Never Assessed Sex and Gender Information Value Date Recorded Sex Assigned at Not on file Gender Identity Not on file Sexual Orientation Not on file documented as of this encounter Progress Notes * Rupinder Hanson DO - 05/28/2012 8:46 PM CST CC/HPI: She presented with vaginal discharge. The symptom is described as acute. The symptom is gradual in onset. The symptom started 1 months ago. The complaint is moderate. The frequency of episodes is daily. ROS: btl. no new partners. declines std testing. Constitutional: The patient denied fever. Gastrointestinal: The patient denied diarrhea and vomiting. Genitourinary/Nephrology: The patient complained of vaginal discharge but denied dysuria (no urinary concerns per pt) and . Dermatologic: The patient denied rash and sores. Allergy/Immunology: The patient denied food allergy. Vital Signs: data collected on 06/13/2011 04:10:01 PM by Rupinder Cordova weight is 153 pounds clothed temperature is 98.4 F sitting heart rate is 76 bpm radial regular blood pressure at Right Arm while Sitting is 120/60 mmHg PE: Constitutional: GENERAL APPEARANCE: Overall: well nourished, well developed and in no acute distress. Abdomen: ABDOMINAL EXAM: Overall: no tenderness. Genitourinary: CERVIX: Overall: no cervical motion tenderness and pelvic exam negative; Cervical discharge: white and yellow; LABIA AND VAGINA: Overall: normal external genitalia. Dx: (623.5) - C - Vaginal discharge (616.10) - C - Bacterial vaginitis Rx: Metronidazole 0.75 % Vaginal Gel, 1 Application, VAG, QHS, 5 days, for a total of qs, start on June 13, 2011, end on June 17, 2011, no etoh while on this medication.. Plan: t&m-clue cells present. Metronidazole vaginal gel 0.75%, 1 applicatorful per vagina qhs for 5 days. Do not consume alcohol while on this medicine. no douching/baths/hottubs/etc. continue showers per routine. I advised that patient have a recheck doctor appointment in the next 1-2 weeks if complete resolution not noted by that time. I reviewed the risks, benefits, and alternatives of plan, and the patient understands, agrees, and wishes to proceed. Patient Instructions: None ABAP DEVELOPER documented in this encounter Plan of Treatment Not on file documented as of this encounter Visit Diagnoses Not on filedocumented in this encounter Care Teams Health Evaluator Relationship Specialty Start Date End Date Eloy Bishop PCP - General Family Practice 06/23/19 12/02/22 [facility] [address] [place] [address] PCP - General 12/03/22 documented as of this encounter
--- OUTSIDE RECORDS SUMMARY | 2023-10-25 02:36 | XMS_ITS | Encounter Summary ---
Author Name Unknown Organization [facility] Address [address] [place] [address] Care Team Providers Care Medical Technologist Prn Name Role Phone Juan Treadwell PA-C Primary Care Provider [phone] Reason for Visit * Procedure/Equipment (Routine) - Incomplete Specialty Diagnoses / Procedures Referred By Rollyac t Referred To Contact Diagnoses Leukocytosis, unspecified type (HRC) Procedures CT Abd Pelvis W IV Cont CT Abd Pelvis W/WO IV Cont Belén Arcos MD [address] [place] [address] Referral ID Status Reason Start Date Expiration Date V isits Requested Visits Authorized [id number] Incomplete 10/01/2023 12/30/2024 1 1 Encounter Details Date Type Department Care Team (Latest Contact Info) Description 10/01/2023 7:00 PM CDT Ancillary Procedure [place] [address] [address] Scan [address] [place] [phone] Belén Arcos MD [address] [place] [address] Leukocytosis, unspecified type (HRC) Social History Tobacco Use Types Packs/Day Years [...] Procedure Name Priority Date/Time Associated Diagnosis Comments CT ABD PELVIS W IV CONT STAT 10/01/2023 6:30 PM CDT Leukocytosis, unspecified type (HRC) documented in this encounter Results * CT Abd Pelvis W IV Cont (10/01/2023 6:30 PM CDT) Anatomical Region Laterality Modality Abdomen, Pelvis Computed Tomogra phy 10/01/2023 6:15 PM CDT Impressions 10/01/2023 6:39 PM CDT COMPARISON: ??None. TECHNIQUE: ??Images were obtained through the abdomen and pelvis following the administration of 75 mL IOHEXOL 350 MG/ML IV SOLN IV contrast. FINDINGS: LOWER CHEST: Unremarkable. LIVER: Unremarkable. GALLBLADDER AND BILIARY TREE: Unremarkable. No intrahepatic or extrahepatic biliary ductal dilation. PANCREAS: Unremarkable. SPLEEN: Mildly enlarged spleen measuring 15 cm craniocaudal. ADRENALS: Unremarkable. KIDNEYS, URETERS, AND BLADDER: Subcentimeter hypoattenuating focus at the medial aspect of the right kidney, too small to accurately characterize, but most likely to represent a cyst. No hydronephrosis. VESSELS: No abdominal aortic aneurysm. BOWEL: Unremarkable. No inflammatory changes or obstruction. Normal appendix REPRODUCTIVE ORGANS: Multi-fibroid uterus. Multiple cervical nabothian cysts are again noted. MESENTERY/PERITONEUM: No enlarged mesenteric lymph nodes. No ascites or free air. No focal fluid collection. RETROPERITONEUM: No adenopathy. ABDOMINAL WALL/SOFT TISSUES: Unremarkable. BONES: Chronic left L5 pars fracture. No suspicious osseous lesion or acute fracture. IMPRESSION: ?? 1. No acute findings in the abdomen or pelvis. 2. Multi-fibroid uterus. Narrative Procedure Note Chase Richardson MD - 10/01/2023 IMPRESSION COMPARISON: None. TECHNIQUE: Images were obtained through the abdomen and pelvis followingthe administration of 75 mL IOHEXOL 350 MG/ML IV SOLN IV contrast. FINDINGS: LOWER CHEST: Unremarkable. LIVER: Unremarkable. GALLBLADDER AND BILIARY TREE: Unremarkable. No intrahepatic orextrahepatic biliary ductal dilation. PANCREAS: Unremarkable. SPLEEN: Mildly enlarged spleen measuring 15 cm craniocaudal. ADRENALS: Unremarkable. KIDNEYS, URETERS, AND BLADDER: Subcentimeter hypoattenuating focus at themedial aspect of the right kidney, too small to accurately characterize,but most likely to represent a cyst. No hydronephrosis. VESSELS: No abdominal aortic aneurysm. BOWEL: Unremarkable. No inflammatory changes or obstruction. Normalappendix REPRODUCTIVE ORGANS: Multi-fibroid uterus. Multiple cervical nabothiancysts are again noted. MESENTERY/PERITONEUM: No enlarged mesenteric lymph nodes. No ascites orfree air. No focal fluid collection. RETROPERITONEUM: No adenopathy. ABDOMINAL WALL/SOFT TISSUES: Unremarkable. BONES: Chronic left L5 pars fracture. No suspicious osseous lesion oracute fracture. IMPRESSION: 1. No acute findings in the abdomen or pelvis. 2. Multi-fibroid uterus. Belén Arcos MD RAD CT documented in this encounter Visit Diagnoses Diagnosis Leukocytosis, unspecified type (HRC) documented in this encounter Administered Medications Inactive Administered Medications - up to 3 most recent administrations Medication Order MAR Action Action Date Dose Rate Site iohexol (OMNIPAQUE 350) 350 MG/ML injection 75 mL 75 mL, Intravenous, ONCE, On Dee 10/01/23 at 1845, For 1 dose Given 10/01/2023 6:27 PM CDT 75 mL sodium chloride 0.9% injection 10 mL 10 mL, Intravenous, ONCE, On Dee 10/01/23 at 1845, For 1 dose Given 10/01/2023 6:27 PM CDT 10 mL documented in this encounter Care Teams Medical Technologist Prn Relationship Specialty Start Date End Date Juan Treadwell PA-C [address] [place] [address] PCP - General 11/01/13 documented as of this encounter
--- OUTSIDE RECORDS SUMMARY | 2023-10-25 02:36 | XMS_ITS | Referral Summary ---
Author Name Unknown Organization [facility] Address [address] [place] [address] Care Team Providers Care Manager Medical Name Role Phone Clinic, Kirstin Lyons Primary [...] Comments Blood Pressure 129/86 06/23/2019 6:02 PM [facility] Pulse 60 06/23/2019 6:02 PM [facility] Temperature 37 ??C (98.6 ??F) 06/23/2019 5:31 PM [facility] Respiratory Rate 14 06/23/2019 7:01 PM [facility] Oxygen Saturation 97% 06/23/2019 6:50 PM [facility] Inhaled Oxygen Concentration - - Weight - - Height - - Body Mass Index - - Plan of Treatment Not on file Procedures Procedure Name Priority Date/Time Associated Diagnosis Comments BASIC METABOLIC PANEL STAT 06/23/2019 6:09 PM [facility] PAP LB RFX HPV ASCU ([facility]) Routine 09/11/2011 8:52 PM [facility] HCV ANTIBODY ([facility]) Routine 07/24/2010 1:45 PM [facility] from Last 3 Months or Most Recently Relevant to Health Maintenance Results * (ABNORMAL) Basic metabolic panel (BMP) (06/23/2019 6:09 PM [facility]) Sodium 141 133 - 144 mmol/L 06/23/2019 6:27 PM [facility] Potassium 3.2(L) 3.4 - 5.3 mmol/L 06/23/2019 6:27 PM [facility] Chloride 108 94 - 109 mmol/L 06/23/2019 6:27 PM [facility] Carbon Dioxide 26 20 - 32 mmol/L 06/23/2019 6:33 PM [facility] Anion Gap 7 3 - 14 mmol/L 06/23/2019 6:33 PM [facility] Glucose 105(H) 70 - 99 mg/dL 06/23/2019 6:33 PM [facility] Urea Nitrogen 20 7 - 30 mg/dL 06/23/2019 6:33 PM [facility] Creatinine 0.66 0.52 - 1.04 mg/dL 06/23/2019 6:33 PM [facility] GFR Estimate >90 >60 mL/min/{1. 73_m2} 06/23/2019 6:33 PM [facility] Comment: Non GFR Calc Starting 06/22/2018, serum creatinine based estimated GFR (eGFR) will be calculated using the Chronic Kidney Disease Epidemiology Collaboration (CKD-EPI) equation. GFR Estimate If Black >90 >60 mL/min/{1. 73_m2} 06/23/2019 6:33 PM [facility] Comment: GFR Calc Starting 06/22/2018, serum creatinine based estimated GFR (eGFR) will be calculated using the Chronic Kidney Disease Epidemiology Collaboration (CKD-EPI) equation. Calcium 8.8 8.5 - 10.1 mg/dL 06/23/2019 6:33 PM [facility] Blood specimen (specimen) 06/23/2019 6:09 PM [facility] 06/23/2019 6:16 PM [facility] Arvind Larose MD LAB - BLOOD ORDER BILL [facility] Alyssa E Magalis Abdullahi [place] [id number], [facility] [phone] * Pap Lb rfx HPV ASCU ([facility]) (09/11/2011 8:52 PM [facility]) DIAGNOSIS: Comment [facility] HISTORICAL RESULTS Comment: NEGATIVE FOR INTRAEPITHELIAL LESION AND MALIGNANCY. ?? THIS SPECIMEN WAS RESCREENED PART OF OUR PROGRAMMING MANAGER PROGRAM. ?? Specimen adequacy: Comment B HISTORICAL RESULTS Comment: Satisfactory for evaluation. ??Endocervical and/or squamous metaplastic ?? cells (endocervical component) are present. ?? Performed by: Comment [facility] HISTORICAL RESULTS QC reviewed by: Comment [facility] HISTORICAL RESULTS Comment: Ezequiel Headley, City Supervisor [facility] ?? . 0 [facility] HISTORICAL RESULTS Note: Comment [facility] HISTORICAL RESULTS Comment: The Pap smear is a screening test designed to aid in the detection of ?? premalignant and malignant conditions of the uterine cervix. ??It is not a ?? diagnostic procedure and should not be used as the sole means of detecting ?? cervical cancer. ??Both false-positive and false-negative reports do occur. ?? . ?? . Comment [facility] HISTORICAL RESULTS Comment: The HPV DNA reflex criteria were not met with this specimen result ?? therefore, no HPV testing was performed. ?? . ?? 09/11/2011 8:52 PM [facility] 09/17/2011 8:19 PM CDT Madie Murray MD LAB - [facility] HISTORICAL RESULTS * HCV Antibody ([facility]) (07/24/2010 1:45 PM [facility] PRIEST) Pathologist [facility] Hep C Virus Ab <0.1 0.0 - 0.9 s/co ratio [facility] HISTORICAL RESULTS Comment: Negative: ? < 0.8 ?? Indeterminate 0.8 - 0.9 ?? Positive: ? > 0.9 ?? . ?? In order to reduce the incidence of a false positive ?? result, the CDC recommends that all s/co ratios ?? between 1.0 and 10.9 be confirmed with additional ?? RIBA or PCR testing. ?? 07/24/2010 1:45 PM [facility] 07/26/2010 12:14 AM [facility] Rupinder Hanson DO LAB - [facility] HISTORICAL RESULTS from Last 3 Months or Most Recently Relevant to Health Maintenance Care Teams Manager Medical Relationship Specialty Start Date End Date Clinic, Kirstin Lyons [facility] [place] [address] PCP - General 12/03/22
--- OUTSIDE RECORDS SUMMARY | 2023-10-25 02:36 | XMS_ITS | Encounter Summary ---
Author Name Unknown Organization [facility] Address [address] [place] [address] Care Team Providers Care Tele Rn Name Role Phone Juan Treadwell PA-C Primary Care Provider [phone] Reason for Visit * Reason Onset Date Comments BLOOD PRESSURE, HIGH Video Visit 09/22/2023 Encounter Details Date Type Department Care Team (Late st Contact Info) Description 09/22/2023 10:00 AM CDT Telemedicine [facility] [address] [facility] [place], [place] [id number] Juan Treadwell PA-C [address] [place], [place] [address], [place] [address] Stage 1 hypertension (HRC) (Primary Dx) Social History Tobacco Use Types Packs/Day Years [...] Reading Time Taken Comments Blood Pressure 133/96 09/21/2023 8:52 AM CDT Pt reported 09/18 Pulse - - Temperature - - Respiratory Rate - - Oxygen Saturation - - Inhaled Oxygen Concentration - - Weight - - Height - - Body Mass Index - - documented in this encounter Patient Instructions * Attachments The following attachments cannot be sent through Care Everywhere. * !How to Take Your Blood Pressure at Home (Brazilian) * !The DASH Eating Plan: Healthy eating to lower your blood pressure (Brazilian) documented in this encounter Progress Notes * Juan Treadwell PA-C - 09/22/2023 10:00 AM CDT Subjective: Today's visit with Ness was conducted as a scheduled video visit. She has been monitoring blood pressures periodically at home since her preop visit in February of 2023. Her blood pressures have consistently run a little bit high. She has done a little research and she notes that she is in stage I hypertension. The systolic numbers often in the 130s while her diastolic is really never below 90. Typically between 90 and 100. She denies any symptoms of hypertensionincluding headaches, vision blurring, chest pain, shortness on breath and extremity swelling. She quit smoking in 2006. She has gained some weight over the last few years. She is very very busy with work. Works at least 12 hour days. 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 She is running the entire time she is at work. Outside of that though does not really get any sustained physical activity in the form of exercise. She does feel like there is opportunity in her diet to lower sodium, saturated fats. Objective: BP (!) 133/96 Comment: Pt reported 09/18 LMP 08/25/2023 Well-groomed, casually-dressed maintains good eye contact during our discussion today. Mood and affect are appropriate. Assessment/Plan: Stage 1 hypertension (HRC) After discussion she feels that there are some opportunities to make change in her lifestyle including working on sodium in the diet, decreasing weight by 5-10 lb. She would like the opportunity to try lifestyle change prior to starting medication. We will trial this for the next 6 months. Written information given on checking accurate home blood pressure readings as well as DASH eating plan. Shehas an active job, but I encouraged her to get more sustained cardiovascular physical activity whenshe has opportunities to do so. Aim for 5-10 lb of weight loss over the next 6 months. We will planto meet back for either video or office visit in 6 months to reassess. If blood pressures are stillrunning elevated at that time, medication would be indicated. Juan Treadwell PA-C Billing based on: Time including, but not limited to, amo-arcl-ij-face time spent reviewing records, counseling, and coordination of care. documented in this encounter Plan of Treatment Not on file documented as of this encounter Visit Diagnoses Diagnosis Stage 1 hypertension (HRC)- Primary documented in this encounter Care Teams Tele Rn Relationship Specialty Start Date End Date Juan Treadwell PA-C [facility] [place] [address] PCP - General 11/01/13 documented as of this encounter
--- OUTSIDE RECORDS SUMMARY | 2023-10-25 02:36 | XMS_ITS | Encounter Summary ---
Author Name Unknown Organization [facility] Address [address] [place] [address] Care Team Providers Care Supervisor Scrap Preparation Name Role Phone Juan Treadwell PA-C Primary Care Provider Reason for Referral * Consult/Transfer Care (Routine) - New Request Specialty Diagnoses / Procedures Referred By Surjit leiva Referred To Contact Diagnoses Pelvic pain in female Belén Arcos MD [address] [place] [address] Referral ID Status Reason Start Date Expiration Date V isits Requested Visits Authorized [id number] New Request 10/01/2023 12/30/2024 1 1 Scheduling Instructions Your clinician has recommended an appointment with [facility]. You can quickly make your appointment online at [employer]/schedule. You can also call [phone] for help scheduling your appointment. We suggest you call your health insurance company about your coverage and benefits for this appointment. Question Answer Appointment Urgency? Within 1 Week (Urgent) Consult for Gynecology Reason for visit? New onset pelvic pain history of fibroids and recent bladder sling follow up after pelvic ultrasound in one-week okayed by batting machine operator insulation on-call * Procedure/Equipment (Routine) - Incomplete Specialty Diagnoses / Procedures Referred By Surjit leiva Referred To Contact Diagnoses Pelvic pain in female Procedures US Pelvic Complete W EV Belén Arcos MD [address] [place] [address] Referral ID Status Reason Start Date Expiration Date V isits Requested Visits Authorized [id number] Incomplete 10/01/2023 12/30/2024 1 1 * Procedure/Equipment (Routine) - Incomplete Specialty Diagnoses / Procedures Referred By Contac t Referred To Contact Diagnoses Leukocytosis, unspecified type (HRC) Procedures CT Abd Pelvis W IV Cont CT Abd Pelvis W/WO IV Cont Belén Arcos MD [address] [place] [address] Referral ID Status Reason Start Date Expiration Date V isits Requested Visits Authorized [id number] Incomplete 10/01/2023 12/30/2024 1 1 Reason for Visit * Reason Comments Vaginal Discharge Encounter Details Date Type Department Care Team (Late st Contact Info) Description 10/01/2023 5:00 PM CDT Office Visit [facility] [address] [place] [address] Belén Arcos MD [address] [place] [address] Pelvic pain in female; Leukocytosis, unspecified type (HRC) Social History Tobacco [...] Sign Reading Time Taken Comments Blood Pressure 129/89 10/01/2023 4:54 PM CDT Pulse 99 10/01/2023 4:54 PM CDT Temperature 36.4 ??C (97.5 ??F) 10/01/2023 4:54 PM CD T Respiratory Rate 20 10/01/2023 4:54 PM CDT Oxygen Saturation 97% 10/01/2023 4:54 PM CDT Inhaled Oxygen Concentration - - Weight - - Height - - Body Mass Index - - documented in this encounter Progress Notes * Belén Arcos MD - 10/01/2023 5:00 PM CDT CC: Pelvic pain HPI: Patient comes in alone, she was seen 2 days ago for one-week history of pain in her pelvic area which she quantifies as 6 to 7/10, mostly constant with occasional sharp symptoms had no associated nausea fever no dysuria she was noted a pretty significant vaginal discharge without odor or itching or burning with urination. She was sexually active has been for 26 years no STD history or concern. She would use urinalysis showed some pyuria though culture was negative she was started on Macrodantin has not helped with symptoms and urine culture was negative. Wet prep shows no evidence of yeast or bacteria. She does have history of known fibroids she was had 3 kids all delivered vaginally he was had bladder sling about 6 months ago for urinary incontinence which helped modestly.does note some pain with intercourse which she attributed to recent surgery periods she notes some diarrhea with recent antibiotics though has had no overall change in bowel habits. Physical exam patient is not ill-appearing vital signs noted lungs clear heart exam is normal abdomen normal bowel sounds she was tender to palpation diffusely in her right and left lower abdominal areas, she does have palpable modestly tender fibroids noted both left and right sides of the suprapubic area exam shows copious amount of yellowish discharge no external or internal lesions she wasno cervical motion tenderness though she does have significant uterine enlargement bilaterally it does seem to be tender in the fibroid areas no rebound guarding or psoas sign CBC shows an elevated white count 13,000 with a left shift CRP slightly elevated at 0.8 U preg negative BMP unremarkable Urinalysis shows some pyuria leuk esterase is moderate CT abdomen pelvis shows multiple fibroids and nabothian cysts, otherwise no abnormalities noted Assessment/plan: New onset pelvic pain with history of fibroids and recent bladder surgery large amount of discharge unclear etiology mild leukocytosis, exam consistent with fibroid tenderness without cervical motion tenderness, discuss with batting machine operator insulation on-call, they felt it was reasonable to treat for possible subclinical BV with pelvic ultrasound and early follow-up next week. Could be due to sloughingof fibroids subclinical PID versus other. She has increased pain fever she should promptly return to urgent care for re-evaluation. documented in this encounter Nursing Notes * Marsha Torres RN - 10/01/2023 5:00 PM CDT Pt seen in [facility] for lower abdominal pain on 09/29/23. Did UA, UC, and CT/GC. Diagnosed withsuspected UTI. Started Macrobid that day and has been taking as ordered. Pt states abdominal pain has not improved; pain is continuous, LLQ / RLQ, cramping w/sharp flares, tender to touch, and rates 6/10. Also notes clear / yellow vaginal discharge, at times large amount. Home Tx: None tried Hx: Bladder sling surgery documented in this encounter Plan of Treatment Scheduled Orders Name Type Priority Associated Diagnoses Orde r Schedule US Pelvic Complete W EV Imaging New Routine Pelvic pain in female Expected: 10/01/2023 (Approximate), Expires: 09/30/2024 Scheduled Referrals Name Type Priority Associated Diagnoses Orde r Schedule Ob-Shop Teacher Consult Referral Routine Pelvic pain in female Ordered: 10/01/2023 documented as of this encounter Results * CT Abd Pelvis [...] Multi-fibroid uterus. Belén Arcos MD RAD CT * Test (Urine) - Collect in Lab (10/01/2023 5:44 PM CDT) HCG, Urine Negative Negative 10/01/2023 5:52 PM CDT [facility] Urine Non-blood Collection / Unknown 10/01/2023 5:44 PM CDT 10/01/2023 5:48 PM CDT Belén Arcos MD LAB_1 Performing Organization Address City/State/[facility] Co de Phone Number [facility] [address] [place] [phone] * (ABNORMAL) UA with Microscopic: Clean Catch (10/01/2023 5:44 PM CDT) Urine Color Straw 10/01/2023 5:59 PM CDT [facility] Urine Clarity Hazy(A) Clear 10/01/2023 5:59 PM T [facility] Specific [place], Urine 1.025 1.005 - 1.030 10/01/2023 5:59 PM [facility] PH Urine 6.0 5.0 - 8.0 10/01/2023 5:59 PM T [facility] Protein, Urine Qual (mg/dL) Negative Neg/Trace 10/01/2023 5:59 PM T [facility] Glucose Urine Qual (mg/dL) Negative Negative 10/01/2023 5:59 PM T [facility] Ketones, Urine (mg/dL) Negative Negative 10/01/2023 5:59 PM T [facility] Urobilinogen, Urine (EU/dL) 0.2 <2.0 10/01/2023 5:59 PM T [facility] Bilirubin Urine Negative Negative 10/01/2023 5:59 PM CDT [facility] Blood, Urine Negative Neg/Trace 10/01/2023 5:59 PM CDT [facility] Nitrite Urine Negative Negative 10/01/2023 5:59 PM CDT [facility] Leukocyte Est. Moderate(A) Negative 5:59 PM CDT [facility] Red Blood Cells 0-3 0 - 3 /HPF 10/01/2023 5:59 PM CDT [facility] White Blood Cells 21-50(A) 0 - 5 /HPF 10/01/2023 5:59 PM T [facility] Bacteria Occasional(A ) None Seen /HPF 10/01/2023 5:59 PM CDT [facility] Squamous Epithelial Cells Few None Seen, Occasional, Few /HPF 10/01/2023 5:59 PM T [facility] Mucus Present(A) None Seen /HPF 10/01/2023 5:59 PM T [facility] White Blood Cell Clumps Present(A) None Seen /HPF 10/01/2023 5:59 PM T [facility] Urine Source Clean Catch 10/01/2023 5:59 PM [facility] Urine URINE SPECIMEN COLLECTION, CLEAN CATCH / Unknown Non-blood Collection / Unknown 10/01/2023 5:44 PM CDT 10/01/2023 5:44 PM CDT Belén Arcos MD LAB_1 Performing Organization Address City/State/[facility] Co de Phone Number [facility] [address] [place] [address] * (ABNORMAL) Basic Metabolic Panel (10/01/2023 5:37 PM CDT) Sodium 137 136 - 145 mmol/L 10/01/2023 5:58 PM CDT [facility] Potassium 4.4 3.5 - 5.1 mmol/L 10/01/2023 5:58 PM CDT [facility] Chloride 104 98 - 109 mmol/L 10/01/2023 5:58 PM CDT [facility] CO2 25 20 - 29 mmol/L 10/01/2023 5:58 PM CDT [facility] Anion Gap 8 7 - 16 mmol/L 10/01/2023 5:58 PM CDT [facility] Calcium 9.1 8.4 - 10.4 mg/dL 10/01/2023 5:58 PM [facility] BUN 16 7 - 26 mg/dL 10/01/2023 5:58 PM T [facility] Creatinine 0.66 0.55 - 1.02 mg/dL 10/01/2023 5:58 PM T [facility] Glucose 113(H) 70 - 100 mg/dL 10/01/2023 5:58 PM [facility] Comment:The given reference range is for the fasting state. Non-fasting reference range for glucose is 70 - 180 mg/dL. GFR, Estimated >60 >60 mL/min/1.7 3m2 10/01/2023 5:58 PM [facility] Hours Fasting 0.1 8 - 12 Hours 10/01/2023 5:58 PM [facility] Comment:Lab unable to obtain patient's fasting status at time of specimen collection. Blood Venipuncture / Unknown 10/01/2023 5:37 PM CDT 10/01/2023 5:39 PM CDT Belén Arcos MD LAB_1 Performing Organization Address [facility] Co de Phone Number [facility] [address] * (ABNORMAL) C-Reactive Protein (10/01/2023 5:37 PM CDT) C-Reactive Protein 0.8(H) 0.0 - 0.5 mg/dL 10/01/2023 5:58 PM T [facility] Blood Venipuncture / Unknown 10/01/2023 5:37 PM CDT 10/01/2023 5:39 PM CDT Belén Arcos MD LAB_1 Performing Organization Address [facility]/ZIP Co de Phone Number [facility] [address] [place] [phone] [place] [address] documented in this encounter Visit Diagnoses Diagnosis Pelvic pain in female Unspecified symptom associated with female genital organs Leukocytosis, unspecified type (HRC) Leukocytosis, unspecified type (HRC) documented in this encounter Care Teams Supervisor Scrap Preparation Relationship Specialty Start Date End Date Juan Treadwell PA-C [address] [place], [place] [address] PCP - General 11/01/13 documented as of this encounter
--- OUTSIDE RECORDS SUMMARY | 2023-10-25 02:36 | XMS_ITS | Clinical Summary ---
Author Name Unknown Organization [facility] Address [address] [place] [address] Care Team Providers Care Dock Clerk Name Role Phone Juan Treadwell PA-C Primary Care Provider [phone] Source Comments You are receiving this document as you are listed as the primary care provider,follow-up provider, or the patient has been referred to you for consultation.This is in compliance with the Medicare and[facility] EHR Incentive Program,which states Providers who transition their patient to another setting of careor provider of care or refers their patient to another provider of care shouldprovide summary care record for each transition of care or referral. [facility] Allergies No known active allergies Medications Medication Sig Dispensed Refills Start Date End Date Status melatonin 5 MG tablet Take 1 Tablet (5 mg) by mouth daily at bedtime. Active sertraline (ZOLOFT) 100 MG tablet Take 1.5 Tablets (150 mg) by mouth daily. 135 Tablet 3 07/09/2023 07/08/2024 Active omeprazole (PRILOSEC) 40 MG capsuleIndications:G astroesophageal reflux disease, unspecified whether esophagitis present TAKE 1 CAPSULE BY MOUTH EVERY DAY 1 HOUR BEFORE A MEAL 90 Capsule 2 07/16/2023 Active nitrofurantoin monohydrate macrocrystal (MACROBID) 100 MG capsule Take 1 Capsule (100 mg) by mouth two times a day for 7 days. 14 Capsule 09/29/2023 10/06/2023 metroNIDAZOLE (FLAGYL) 500 MG tablet Take 1 Tablet (500 mg) by mouth two times a day for 7 days. 14 Tablet 10/01/2023 10/08/2023 Active Problems Problem Noted Date Diagnosed Date Stage 1 hypertension 09/22/2023 Atypical squamous cells of u ndetermined significance on cytologic smear of cervix (ASC-US) 07/17/2022 Overview: [facility] Review: History: 06/2022: ASCUS HPV neg Plan, per ASCCP guidelines: Repeat co-test in 3 years (2024) Anxiety 07/07/2022 Gastroesophageal reflux disease 02/26/2021 Chronic midline thoracic back pain 02/26/2021 Resolved Problems Problem Noted Date Diagnosed Date Resolved Date Mixed urge and stress incontinence 07/07/2022 09/22/2023 Encounters Date Type Department Care Team Description 10/01/2023 7:00 PM CDT Ancillary Procedure [facility] [address] [address] Scan [address] [place] [address] Belén Arcos MD Leukocytosis, unspecified type (HRC) 10/01/2023 5:40 PM CDT Lab Visit [facility] [address] [place] [phone] Pelvic pain in female 10/01/2023 5:00 PM CDT Office Visit [facility] [address] [place] [address] Belén Arcos MD Pelvic pain in female; Leukocytosis, unspecified type (HRC) 10/01/2023 Telephone [facility] [facility] [address] [place] [phone] Juan Treadwell PA-C RESULTS, TEST 09/29/2023 12:20 PM CDT Office Visit [facility] [facility] [address] [place] [phone] Dejah Ng MD Frequency of urination; Vaginal discharge; Acute cystitis without hematuria 09/22/2023 10:00 AM CDT Telemedicine [facility] [address] [place] [address] Juan Treadwell PA-C Stage 1 hypertension (HRC) (Primary Dx) 09/10/2023 10:10 AM PERSONNEL AND PAYROLL TECHNICIAN Ancillary Procedure [facility] [address] [place], [place] [phone] from Last 3 Months Immunizations Name Administration Dates Next Due Influenza (Flucelvax), Preserv Free QIV 04/02/20 21 Influenza (Fluzone 0.25, 6-35 mos) 05/06/2013 Influenza IIV4 (Quadrivalent) 0.5mL (95581) 03/2020,05/06/2013 Pfizer Monovalent 12+ Purple Top 07/20/2020,06/06 Tdap 09/09/2017 Family History Medical History Relation Name Comments Cancer, Breast Maternal Grandmother Relation Name Status Comments Maternal Grandmother Social History Tobacco Use Types Packs/Day Years [...] CDT Inhaled Oxygen Concentration - - Weight 85.2 kg (187 lb 12.8 oz) 02/04/2023 2:28 PM CDT Height 170.2 cm (5' 7) 02/04/2023 2:28 PM CDT Body Mass Index 29.41 02/04/2023 2:28 PM CDT Plan of Treatment Health Maintenance Due Date Last Done Comments HepB (1) 1996 FIT Colon Cancer Screening 2021 COVID-19 Vaccine ( season) 2023 07/20/2020, 07/02/2020 Influenza (#1) 2023 04/02/2021, 0903/2020, 05/06/2013, Additional history exists Adult Preventive Visit 06/25/2023 , 02/18/2019, 09/09/2017 Mammogram 09/09/2024 09/10/2023, 11/2021, 2018, Additional history exists Cervical Cancer Screening 06/25/20252021, 09/09/2017, 10/31/2013 Diabetes Screening- (based on age and BMI) 02/04/2026 02/04/2023 DTaP/Tdap/Td (2 - Tdap) 09/10/2027 09/09/2017 Zoster/Shingles (1 of 2) 12/22/2027 Cholesterol 02/05/2028 02/04/2023 HIV Screening (Preventive Services) Completed 02/04/2023 Hep C Screening (Preventive Services) Completed 02/04/2023 HPV Vaccine Aged Out No longer eligi ble based on patient's age to complete this topic HepA Aged Out No longer eligi ble based on patient's age to complete this topic Hib Aged Out No longer eligi ble based on patient's age to complete this topic IPV (Polio) Aged Out No longer eligi ble based on patient's age to complete this topic MCV4 Aged Out No longer eligi ble based on patient's age to complete this topic Pneumococcal Aged Out No longer eligi ble based on patient's age to complete this topic Medical Devices Implanted Type Area Pulpit Operator Device Identifier Shelf Expiration Date Model / Serial / Lot Sling Advantage Mid-Urethral - [id number] Implanted:Qty: 1 on 02/18/2023 by Jcarlos Larson MD at [facility] DEVICE N/A: VAGINA [employer] 11/23/2025 [id number] / / [id number] Procedures Procedure Name Priority Date/Time Associated Diagnosis Comments CT ABD PELVIS W IV CONT STAT 10/01/2023 6:30 PM CDT Leukocytosis, unspecified type (HRC) TEST (URINE) STAT 10/01/2023 5:44 PM CDT Pelvic pain in female UA WITH MICROSCOPIC STAT 10/01/2023 5 :44 PM CDT Pelvic pain in female COMPLETE BLOOD COUNT-W/DIFF STAT 10/01/2023 5:37 PM CDT Pelvic pain in female BASIC METABOLIC PANEL STAT 10/01/2023 5:37 PM CDT Pelvic pain in female C-REACTIVE PROTEIN STAT 10/01/2023 5: 37 PM CDT Pelvic pain in female CBC AND DIFFERENTIAL PANEL STAT 10/01/2023 5:37 PM CDT Pelvic pain in female CHLAMYDIA & GC (14 YEARS & OLDER) Routine 09/29/2023 1:26 PM CDT Vaginal discharge VAGINITIS PANEL Routine 09/29/2023 1:26 PM CDT Vaginal discharge URINE CULTURE STAT 09/29/2023 12:26 PM CDT Frequency of urination UA MICRO STAT 09/29/2023 12:26 PM CDT Frequency of urination URINALYSIS ROUTINE, MICRO/CULTURE IF POS STAT 09/29/2023 12:26 PM CDT Frequency of urination MM MAMMOGRAM SCREENING BILAT W CAD Routine 09/10/2023 10:13 AM PERSONNEL AND PAYROLL TECHNICIAN HGB A1C Routine 02/04/2023 3:08 PM CDT Screening for diabetes mellitus HIV 1/2 AG/AB 4TH GEN Routine 02/04/2023 3:08 PM CDT Screening for HIV (human immunodeficiency virus) HEPATITIS C ANTIBODY, WITH REFLEX Routine 02/04/2023 3:08 PM CDT Need for hepatitis C screening test LIPID PANEL & DIRECT LDL (IF NEEDED) Routine 02/04/2023 3:08 PM CDT Screening for cholesterol level PAP TEST Routine 06/25/2022 12:59 PM PERSONNEL AND PAYROLL TECHNICIAN Screening for malignant neoplasm of cervix from Last 3 Months or Most Recently Relevant to Health Maintenance Results * CT Abd Pelvis W IV [...] uterus. Belén Arcos MD RAD CT * (ABNORMAL) UA with Microscopic: Clean Catch (10/01/2023 5:44 PM CDT) Urine Color Straw 10/01/2023 5:59 PM [facility] Urine Clarity Hazy(A) Clear 10/01/2023 5:59 PM [facility] Specific Dillon, Urine 1.025 1.005 - 1.030 10/01/2023 5:59 PM [facility] PH Urine 6.0 5.0 - 8.0 10/01/2023 5:59 PM [facility] Protein, Urine Qual (mg/dL) Negative Neg/Trace 10/01/2023 5:59 PM [facility] Glucose Urine Qual (mg/dL) Negative Negative 10/01/2023 5:59 PM [facility] Ketones, Urine (mg/dL) Negative Negative 10/01/2023 5:59 PM [facility] Urobilinogen, Urine (EU/dL) 0.2 <2.0 10/01/2023 5:59 PM CDT [facility] Bilirubin Urine Negative Negative 10/01/2023 5:59 PM CDT [facility] Blood, Urine Negative Neg/Trace 10/01/2023 5:59 PM CDT [facility] Nitrite Urine Negative Negative 10/01/2023 5:59 PM CDT [facility] Leukocyte Est. Moderate(A) Negative 5:59 PM CDT [facility] Red Blood Cells 0-3 0 - 3 /HPF 10/01/2023 5:59 PM CDT [facility] White Blood Cells 21-50(A) 0 - 5 /HPF 10/01/2023 5:59 PM CDT [facility] Bacteria Occasional(A ) None Seen /HPF 10/01/2023 5:59 PM CDT [facility] Squamous Epithelial Cells Few None Seen, Occasional, Few /HPF 10/01/2023 5:59 PM CDT [facility] Mucus Present(A) None Seen /HPF 10/01/2023 5:59 PM CDT [facility] White Blood Cell Clumps Present(A) None Seen /HPF 10/01/2023 5:59 PM CDT [facility] Urine Source Clean Catch 10/01/2023 5:59 PM CDT [facility] Urine URINE SPECIMEN COLLECTION, CLEAN CATCH / Unknown Non-blood Collection / Unknown 10/01/2023 5:44 PM CDT 10/01/2023 5:44 PM CDT Belén Arcos MD LAB_1 Performing Organization Address City/State/[facility] Co de Phone Number [facility] [address] [place] [address] * Test (Urine) - Collect in Lab (10/01/2023 5:44 PM CDT) HCG, Urine Negative Negative 10/01/2023 5:52 PM CDT [facility] Urine Non-blood Collection / Unknown 10/01/2023 5:44 PM CDT 10/01/2023 5:48 PM CDT Belén Arcos MD LAB_1 [facility] [address] [place] [address], [facility] * (ABNORMAL) Complete Blood Count-W/Diff (10/01/2023 5:37 PM CDT) [facility] Signature WBC 13.0(H) 3.5 - 10.5 x10(9)/L 10/01/2023 5:41 PM CDT [facility] RBC 4.80 3.90 - 5.03 x10(12)/L 10/01/2023 5:41 PM T [facility] Hemoglobin 14.5 12.0 - 15.5 g/dL 10/01/2023 5:41 PM [facility] HCT 43.0 34.9 - 44.5 % 10/01/2023 5:41 PM [facility] MCV 89.6 80.0 - 100.0 fL 10/01/2023 5:41 PM T [facility] MCH 30.2 27.6 - 33.3 pg 10/01/2023 5:41 PM T [facility] MCHC 33.7 31.5 - 35.2 g/dL 10/01/2023 5:41 PM T [facility] RDW 13.2 11.9 - 15.5 % 10/01/2023 5:41 PM T [facility] Platelets 270 150 - 450 x10(9)/L 10/01/2023 5:41 PM [facility] Automated NRBC 0 <=0 /100 WBC 10/01/2023 5:41 PM T [facility] Neutrophil Absolute 9.4(H) 1.7 - 7.0 10(9)/L 10/01/2023 5:41 PM [facility] Lymphocyte Absolute 2.1 1.0 - 4.8 10(9)/L 10/01/2023 5:41 PM [facility] Monocyte Absolute 1.1(H) 0.2 - 0.9 10(9)/L 10/01/2023 5:41 PM [facility] Eosinophil Absolute 0.2 0.0 - 0.5 10(9)/L 10/01/2023 5:41 PM [facility] Basophil Absolute 0.1 0.0 - 0.3 10(9)/L 10/01/2023 5:41 PM [facility] Immature Granulocyte % 1.5(H) 0.0 - 0.5 % 10/01/2023 5:41 PM [facility] Blood Venipuncture / Unknown 10/01/2023 5:37 PM CDT 10/01/2023 5:39 PM CDT Belén Arcos MD LAB_1 [facility] [address] [place] [address], [facility] * (ABNORMAL) Basic Metabolic Panel (10/01/2023 5:37 PM CDT) Sodium 137 136 - 145 mmol/L 10/01/2023 5:58 PM [facility] Potassium 4.4 3.5 - 5.1 mmol/L 10/01/2023 5:58 PM [facility] Chloride 104 98 - 109 mmol/L 10/01/2023 5:58 PM [facility] CO2 25 20 - 29 mmol/L 10/01/2023 5:58 PM [facility] Anion Gap 8 7 - 16 mmol/L 10/01/2023 5:58 PM [facility] Calcium 9.1 8.4 - 10.4 mg/dL 10/01/2023 5:58 PM [facility] BUN 16 7 - 26 mg/dL 10/01/2023 5:58 PM [facility] Creatinine 0.66 0.55 - 1.02 mg/dL 10/01/2023 5:58 PM [facility] Glucose 113(H) 70 - 100 mg/dL 10/01/2023 5:58 PM [facility] Comment:The given reference range is for the fasting state. Non-fasting reference range for glucose is 70 - 180 mg/dL. GFR, Estimated >60 >60 mL/min/1.7 3m2 10/01/2023 5:58 PM [facility] Hours Fasting 0.1 8 - 12 Hours 10/01/2023 5:58 PM CDT [facility] Comment:Lab unable to obtain patient's fasting status at time of specimen collection. Blood Venipuncture / Unknown 10/01/2023 5:37 PM CDT 10/01/2023 5:39 PM CDT Belén Arcos MD LAB_1 Performing Organization Address [facility] Co de Phone Number [facility] [address] [place] [address] * (ABNORMAL) C-Reactive Protein (10/01/2023 5:37 PM CDT) C-Reactive Protein 0.8(H) 0.0 - 0.5 mg/dL 10/01/2023 5:58 PM CDT [facility] Blood Venipuncture / Unknown 10/01/2023 5:37 PM CDT 10/01/2023 5:39 PM CDT Belén Arcos MD LAB_1 Performing Organization Address [facility] de Phone Number [facility] [address] [place] [address] * Vaginitis Panel (Includes Bacterial Vaginosis, Nette Species, Nette Glabrata and Trichomonas Vaginalis.) (09/29/2023 1:26 PM CDT) Pathologist [facility] Bacterial Vaginosis Negative Negative 09/30/2023 12:55 PM CDT [facility] Nette species Negative Negative 12:55 PM CDT [facility] Nette glabrata Negative Negative 09/30/2023 12:55 PM CDT [facility] Trichomonas vaginalis Negative Negative 09/30/2023 12:55 PM CDT [facility] Swab STD SPECIMEN FROM VAGINA / Unknown Non-blood Collection / Unknown 09/29/2023 1:26 PM CDT 09/29/2023 1:29 PM CDT Narrative [facility] - 09/30/2023 12:55 PM CDT Test performed by [employer] Mediated Amplification (TMA). Dejah Ng MD LAB_1 Performing Organization Address [facility] Co de Phone Number [facility] [address] * Chlamydia & GC (14 Years and Older): Vagina (09/29/2023 1:26 PM CDT) Pathologist [facility] Chlamydia Trachomatis STD Not Detected Not Detected 09/30/2023 2:27 PM CDT [facility] N. gonorrhoeae STD Not Detected Not Detected 09/30/2023 2:27 PM CDT [facility] Swab STD SPECIMEN FROM VAGINA / Unknown Non-blood Collection / Unknown 09/29/2023 1:26 PM CDT 09/29/2023 1:29 PM CDT Narrative [facility] - 09/30/2023 2:27 PM CDT Test performed by [employer] Mediated Amplification (TMA). Dejah Ng MD LAB_1 Performing Organization Address [facility] de Phone Number [facility] [address] * (ABNORMAL) Urine Culture (09/29/2023 12:26 PM CDT) [facility] Urine Culture Growth(A) 09/30/2023 4:35 PM CDT [facility] Urine Culture <10,000 CFU/mL Mixed Bacterial Growth 09/30/2023 4:35 PM CDT [facility] Comment: Mixed Bacterial Growth indicates the specimen is likely contaminated at collection with urogenital and/or fecal rosa. The presence of organisms at <10,000 cfu/ml in culture, UTI unlikely. Urine URINE SPECIMEN COLLECTION, CLEAN CATCH / Unknown Non-blood Collection / Unknown 09/29/2023 12:26 PM CDT 09/29/2023 12:45 PM CDT Ryan CUEVA LAB_1 Performing Organization Address [facility]/[place] [address], [facility] * (ABNORMAL) Urinalysis Routine, Micro/Culture if Pos: Clean Catch (09/29/2023 12:26 PM CDT) Urine Culture Comment Urinalysis results meet criteria for reflex, culture performed. 09/29/2023 12:45 PM CDT [facility] Urine Color Yellow 09/29/2023 12:45 PM CDT [facility] Urine Clarity Clear Clear 09/29/2023 12:45 PM CDT [facility] Specific Dillon, Urine 1.020 1.005 - 1.030 09/29/2023 12:45 PM CDT [facility] PH Urine 7.0 5.0 - 8.0 09/29/2023 12:45 PM CDT [facility] Protein, Urine Qual (mg/dL) Negative Neg/Trace 09/29/2023 12:45 PM CDT [facility] Glucose Urine Qual (mg/dL) Negative Negative 09/29/2023 12:45 PM CDT [facility] Ketones, Urine (mg/dL) Negative Negative 09/29/2023 12:45 PM T [facility] Urobilinogen, Urine (EU/dL) 0.2 <2.0 09/29/2023 12:45 PM CDT [facility] Bilirubin Urine Negative Negative 09/29/2023 12:45 PM CDT [facility] Blood, Urine Negative Neg/Trace 09/29/2023 12:45 PM CDT [facility] Nitrite Urine Negative Negative 09/29/2023 12:45 PM CDT [facility] Leukocyte Est. Small(A) Negative 09/29/2023 12:45 PM CDT [facility] Urine Source Clean Catch 09/29/2023 12:45 PM T [facility] Urine URINE SPECIMEN COLLECTION, CLEAN CATCH / Unknown Non-blood Collection / Unknown 09/29/2023 12:26 PM CDT 09/29/2023 12:35 PM CDT Ryan CUEVA LAB_1 [facility] [address] [place] [address], [facility] * (ABNORMAL) Urine Microscopic Evaluation: Clean Catch (09/29/2023 12:26 PM CDT) Pathologist [facility] Red Blood Cells 0-3 0 - 3 /HPF 12:45 PM CDT [facility] White Blood Cells 21-50(A) 0 - 5 /HPF 09/29/2023 12:45 PM CDT [facility] Bacteria Few(A) None Seen /HPF 09/29/2023 12:45 PM CDT [facility] Squamous Epithelial Cells Few None Seen, Occasional , Few /HPF 09/29/2023 12:45 PM CDT [facility] Urine URINE SPECIMEN COLLECTION, CLEAN CATCH / Unknown Non-blood Collection / Unknown 09/29/2023 12:26 PM CDT 09/29/2023 12:35 PM CDT Ryan CUEVA LAB_1 [facility] [address] [place] [address] * MM Mammogram Screening Bilat W CAD (09/10/2023 10:13 AM PERSONNEL AND PAYROLL TECHNICIAN) Anatomical Region Laterality Modality Breast Bilateral Mammography Impressions 09/10/2023 10:50 AM PERSONNEL AND PAYROLL TECHNICIAN : ACR BI-RADS Category 1: Negative RECOMMENDATION: Follow Up Imaging in 12 months - Bilateral The results and recommendations of this examination will be communicated to the patient. Narrative 09/10/2023 10:50 AM PERSONNEL AND PAYROLL TECHNICIAN MM MAMMOGRAM SCREENING BILAT W CAD performed [...] malignancy. ?? Juan Treadwell PA-C [facility] * HIV 1/2 Ag/Ab 4th Generation (02/04/2023 3:08 PM CDT) Pathologist [facility] HIV 1/2 Antigen/Antib siva (4th generation) Negative (Non Reactive) Negative (Non Reactive) 02/04/2023 8:43 PM CDT [facility] Comment:HIV-1 p24 Antigen an d HIV-1/HIV-2 Antibody not detected Blood Venipuncture / Unknown 02/04/2023 3:08 PM CDT 02/04/2023 3:08 PM CDT Juan Jonathan Treadwell PA-C LAB_1 Performing Organization Address City/[facility]/ZIP Co de Phone Number [facility] [address] [place] [address], [facility] * (ABNORMAL) Lipid Panel and Direct LDL(If Needed) (02/04/2023 3:08 PM CDT) Pathologist [facility] Cholesterol 181 0 - 199 mg/dL 02/04/2023 6:32 PM CDT [facility] Triglyceride 197(H) <=149 mg/dL 02/04/2023 6:32 PM CDT [facility] HDL Cholesterol 47 >=40 mg/dL 02/04/2023 6:32 PM T [facility] LDL, Calculated 95 <130 mg/dL 02/04/2023 6:32 PM T [facility] Non HDL Chol, Calculated 134 <=159 mg/dL 02/04/2023 6:32 PM T [facility] Cholesterol/HDL Ratio 3.9 02/04/2023 6:32 PM T [facility] Hours Fasting Unknown 02/04/2023 6:32 PM CDT [facility] (PN) Blood Venipuncture / Unknown 02/04/2023 3:08 PM CDT 02/04/2023 3:08 PM CDT Juan Treadwell PA-C LAB_1 Performing Organization Address [facility]/ZIP Co de Phone Number [facility] [address] [place] [address], [facility] [phone] [facility] ([facility]) [address] [place] [address], [facility] [phone] * Hepatitis C Antibody, with Reflex (02/04/2023 3:08 PM CDT) Hepatitis C Antibody Negative (Non Reactive) Negative (Non Reactive) 02/04/2023 8:43 PM CDT [facility] Comment:Antibodies to HCV no t detected. Does not exclude the possiblity of exposure to HCV. Blood Venipuncture / Unknown 02/04/2023 3:08 PM CDT 02/04/2023 3:08 PM CDT Juan Treadwell PA-C LAB_1 Performing Organization Address [facility] de Phone Number [facility] [address] * Hgb A1C (02/04/2023 3:08 PM CDT) Hemoglobin A1C 5.2 <=5.6 % 02/05/2023 9:32 AM CDT [facility] Estimated Average Glucose (Calc) 103 < 117 mg/dL 02/05/2023 9:32 AM CDT [facility] Comment:Estimated average gl ucose (eAG) converts A1c into glucose units (mg/dL) and estimates average glucose over the past approximately 3 months. The eAG reference interval (<117 mg/dL) corresponds to an A1c of <5.7%. Blood Venipuncture / Unknown 02/04/2023 3:08 PM CDT 02/04/2023 3:08 PM CDT Juan Treadwell PA-C LAB_1 Performing Organization Address [facility] de Phone Number [facility] [address] [phone] * (ABNORMAL) PAP Test (06/25/2022 12:59 PM PERSONNEL AND PAYROLL TECHNICIAN) Case Report Pap ? Case: [id number] ? Authorizing Provider: ??Juan Treadwell PA-C ?Collected: ? 06/25/2022 1259 ? Ordering Location: ? [facility] ?Received: ?06/25/2022 1538 ? First Screen: ?Chiara Hudson ? Pathologist: ? Ever Ignacio MD ? Specimen: ?Pap Test, Routine, Cervix/Endocerv ix ? 07/17/2022 8:15 AM PERSONNEL AND PAYROLL TECHNICIAN [facility] Pap Specimen Adequacy Satisfactory for evaluation, endocervical/tr ansformation zone component present. 07/17/2022 8:15 AM PERSONNEL AND PAYROLL TECHNICIAN [facility] Pap Interpretation (ASC-US) Atypical squamous cells of undetermined significance.(A ) 07/17/2022 8:15 AM PERSONNEL AND PAYROLL TECHNICIAN [facility] Pap Disclaimer The Pap test is a screening test designed to aid in the detection of cervical cancer and its precursor lesions. It is not a diagnostic procedure and should not be used as the sole means of detecting cervical cancer. Both false-positive and false-negative results may occur. 07/17/2022 8:15 AM PERSONNEL AND PAYROLL TECHNICIAN [facility] Gross Description The specimen is received in SurePath fixative and properly labeled. 1 Pap-stained SurePath slide is prepared. 07/17/2022 8:15 AM PERSONNEL AND PAYROLL TECHNICIAN [facility] Embedded Images 8:15 AM PERSONNEL AND PAYROLL TECHNICIAN [facility] Other Specimen Type ENTIRE ENDOCERVIX / Unknown 06/25/2022 12:59 PM PERSONNEL AND PAYROLL TECHNICIAN 06/25/2022 3:38 PM PERSONNEL AND PAYROLL TECHNICIAN Comment:LMP: No LMP recorded . Juan Treadwell PA-C LAB PATHOLOGY [facility] [address] [employer] [place] [address], [facility] from Last 3 Months or Most Recently Relevant to Health Maintenance Care Teams Dock Clerk Relationship Specialty Start Date End Date Juan Treadwell PA-C [address] [place] [address] PCP - General 11/01/13
[2023-10-25] MEDS: KETOROLAC 30 MG/ML inj IVP (02:59)
[2023-10-25] MEDS: 0.9 % SODIUM CHLORIDE 1000 ml 1,000 ML IV (02:59)
[2023-10-25] MEDS: ONDANSETRON 2 MG/ML inj 4 MG IVP (03:00)
[2023-10-25] MEDS: GI COCKTAIL (VISC LIDO/ANTACID) 30 ML PO (03:01)
[2023-10-25 03:04] LABS: Lactate* 1.3 mmol/L (0.5-1.9)
[2023-10-25 03:06] LABS: Basophils Percent Auto 0.2 % (0.0-3.0); Eosinophils Percent Auto 0.2 % (0.0-7.0); Hematocrit 45.6 % (33.0-51.0); Hemoglobin* 15.2 gm/dL (12.0-16.0); Immature Granulocytes Pct Auto 0.6 %; Lymphocytes Percent Auto 8.5 % (20-44); Mean Corpuscular HGB Conc 33 gm/dL (32-36); Mean Corpuscular Hemoglobin 30 pg (26-34); Mean Corpuscular Volume 89 fL (80-100); Monocytes Percent Auto 5.8 % (0.0-11.0); Neutrophils Percent Auto 84.7 % (42.0-72.0); Platelet Count* 301 K/uL (140-440); Red Blood Count 5.14 m/uL (4.00-5.20)
[2023-10-25 03:09] LABS: Slide Review Reflex No
[2023-10-25 03:20] LABS: Albumin* 5.1 g/dL (3.3-5.0); Chloride* 107 mmol/L (96-114); Potassium* 3.8 mmol/L (3.6-5.1); Sodium* 139 mmol/L (135-149)
[2023-10-25 03:22] LABS: Creatinine* 0.6 mg/dL (0.5-1.5); Est. Creatinine Clearance* 115.14; Estimated Glomerular Filt Rate 113 ml/min
[2023-10-25 03:23] LABS: Alanine Aminotransferase* 81 U/L (4-35); Alkaline Phosphatase* 107 U/L (40-150); Anion Gap 6 mEq/L (7-15); Aspartate Amino Transferase* 37 U/L (12-35); Bilirubin Direct* 0.1 mg/dL (0.0-0.5); Bilirubin Total* 0.8 mg/dL (0.1-1.5); Blood Urea Nitrogen* 18 mg/dL (5-24); Carbon Dioxide* 26 mmol/L (20-32); Glucose* 144 mg/dL (60-115); Total Protein* 8.7 g/dL (6.0-8.3)
[2023-10-25] MEDS: MORPHINE 4 MG/ML INJ IVP (03:23)
[2023-10-25 03:24] LABS: Calcium* 9.4 mg/dL (8.4-10.6)
[2023-10-25 03:25] LABS: D Dimer Quantitative* 0.44 ug/ml (0.00-0.50)
[2023-10-25 03:28] LABS: C Reactive Protein* < 0.5 mg/dL (0.5-1.0)
[2023-10-25 03:36] LABS: NT Pro B Type NatriureticPept* 30 pg/mL; Troponin I* < 0.01 ng/mL (0.01-0.04)
[2023-10-25 03:55] VITALS: BP 136/98; PULSE 82; RESP 18; O2SAT 97
[2023-10-25 04:00] LABS: Appearance Urine Cloudy (Clear); Bilirubin Urine Negative (Negative); Blood Urine Negative (Negative); Color Urine Yellow (Yellow); Glucose Urine Negative (Negative); Ketones Urine 1+ (Negative); Leukocyte Esterase Urine Trace (Negative); Nitrite Urine Negative (Negative); Protein Urine Negative (Negative); Urobilinogen Urine 0.2 (0.2-1.0); pH Urine 8.5 (5.0-8.5)
[2023-10-25 04:14] LABS: Bacteria Urine Few; Squamous Epithelial Cell Urine Moderate (None-Few)
[2023-10-25 05:30] LABS: Lipase* 81 U/L (23-300)
[2023-10-25 05:40] VITALS: BP 124/81; PULSE 80; RESP 16; O2SAT 95
--- NOTE | 2023-10-25 07:03 | US_ITS ---
Patient: SANTOS ERIC Facility:?[facility] Patient ID:?[id number] Site Patient ID:?[id number] Site :?[id number] Study:?US-Abdomen RUQ-10/25/2023 8:29:46 AM Ordering Physician:?LOLA CURIEL M.D. Final Report: INDICATION: BACK AND EPIGASTRIC PAIN TECHNIQUE: Ultrasound abdomen limited. Sonographic images of the right upper quadrant were obtained using reyes-scale and color Doppler images. COMPARISON: None. FINDINGS: Liver: Normal in size and echotexture. No suspicious masses. No intrahepatic biliary dilatation. Gallbladder: Multiple gallstones and sludge in the gallbladder. Heterogenous gallbladder ladder wall thickening, measuring 0.4 centimeters. There is pericholecystic inflammation. Negative Garcia`s sign. Common bile duct: 4 mm. Pancreas: Partially obscured by bowel gas artifact. Question of dilated pancreatic duct although incompletely visualized. Right kidney: Normal in size. Normal echotexture and cortex. No suspicious masses, stones, or hydronephrosis. Vasculature: Proximal abdominal aorta and IVC are unremarkable. IMPRESSION: Multiple gallstones and sludge in the gallbladder. Heterogenous gallbladder wall thickening, measuring 0.4 centimeters. There is pericholecystic inflammation. Negative Garcia`s sign. Overall imaging findings most compatible with acute cholecystitis. Partially obscured by bowel gas artifact. Question of dilated pancreatic duct although incompletely visualized. Dictated by Waldo Patel MD @ 10/25/2023 8:51:42 AM Signed by:?Waldo Patel MD @10/25/2023 8:51:42 AM (Electronic Signature)
== END 2023-10-25 09:10 | disposition home or self-care (01) ==
PROVIDERS: Emergency Provider Family Medicine
DX: K80.51 Calculus of bile duct without cholangitis or cholecystitis with obstruction (principal)
CPT/HCPCS: 36415; 76705; 80048; 80076; 81001; 83605; 83690; 83880; 84484; 85025; 85379; 86140; 87086; 93005; 96374; 96375; 99284; A9270; J1885; J2270; J2405; J7030

== ENCOUNTER 2023-11-10 08:11 | Outpatient (CLI) | payer OTHER, SELFPAY ==
--- NOTE | 2023-11-10 08:15 | MR_ITS ---
Patient: SANTOS ERIC Facility:?[facility] RIS Patient ID:?[id number] Site Patient ID:?[id number]. Site :?[id number] Study:?MRI-Abdomen W/O MRCP-11/10/2023 9:19:29 AM Ordering Physician:?THEODORE GUPTA Final Report: INDICATION: Cholelithiasis without cholecystitis TECHNIQUE: An MRCP, including 2D, 3D and maximum intensity projection imaging, was performed. COMPARISON: Right upper quadrant ultrasound of 10/25/2023 FINDINGS: Stones are again demonstrated in the gallbladder. No gallbladder inflammation is apparent. The common bile duct is smoothly marginated and measures up to 4 mm in diameter. No filling defect is evident. The intrahepatic ducts are normal in caliber and appear to branch and taper in a grossly normal fashion. The pancreatic duct is normal. The liver is fatty and mildly enlarged. The spleen is also mildly enlarged. The adrenal glands, kidneys and pancreas are within normal limits. No bowel abnormality, lymphadenopathy or free fluid is demonstrated. IMPRESSION: 1. Cholelithiasis without evidence of cholecystitis. 2. Normal bile ducts. 3. Fatty, mildly enlarged liver. 4. Mild splenomegaly. Dictated by Luca Leonard MD @ 11/11/2023 5:50:13 AM Signed by:?Luca Leonard MD @11/11/2023 5:50:13 AM (Electronic Signature)
--- OUTSIDE RECORDS SUMMARY | 2023-11-10 08:15 | XMS_ITS | Encounter Summary ---
Author Name Unknown Organization [facility] Address [address] [place] [address] Care Team Providers Care Aed Trainer Name Role Phone Juan Treadwell PA-C Primary Care Provider [phone] Encounter Details Date Type Department Care Team ([facility] Contact Info) Description 10/01/2023 5:40 PM CDT Lab Visit [facility] [address] [place] [address] Pelvic pain in female Social [...] as of this encounter Plan of Treatment Upcoming Encounters Date Type Department Care Team ([facility] Contact Info) Description 11/13/2023 8:00 AM CDT Appointment [facility] [address] [place] [address] Juan Treadwell PA-C [address] [place] [place] [address] documented as of this encounter Procedures Procedure [...] Urine Negative Negative 10/01/2023 5:52 PM CDT [facility] Urine Non-blood Collection / Unknown 10/01/2023 5:44 PM CDT 10/01/2023 5:48 PM CDT Belén Arcos MD LAB_1 [facility] [address] [place] [address], [facility] * (ABNORMAL) UA with Microscopic: Clean Catch (10/01/2023 5:44 PM CDT) Urine Color Straw 10/01/2023 5:59 PM CDT [facility] Urine Clarity Hazy(A) Clear 10/01/2023 5:59 PM [facility] Specific [place], Urine 1.025 1.005 - 1.030 10/01/2023 5:59 PM [facility] PH Urine 6.0 5.0 - 8.0 10/01/2023 5:59 PM [facility] Protein, Urine Qual (mg/dL) Negative Neg/Trace 10/01/2023 5:59 PM [facility] Glucose Urine Qual (mg/dL) Negative Negative 10/01/2023 5:59 PM [facility] Ketones, Urine (mg/dL) Negative Negative 10/01/2023 5:59 PM [facility] Urobilinogen, Urine (EU/dL) 0.2 <2.0 10/01/2023 5:59 PM [facility] Bilirubin Urine Negative Negative 10/01/2023 5:59 PM [facility] Blood, Urine Negative Neg/Trace 10/01/2023 5:59 PM [facility] Nitrite Urine Negative Negative 10/01/2023 5:59 PM [facility] Leukocyte Est. Moderate(A) Negative 5:59 PM [facility] Red Blood Cells 0-3 0 - 3 /HPF 10/01/2023 5:59 PM [facility] White Blood Cells 21-50(A) 0 - 5 /HPF 10/01/2023 5:59 PM [facility] Bacteria Occasional(A ) None Seen /HPF 10/01/2023 5:59 PM [facility] Squamous Epithelial Cells Few None Seen, Occasional, Few /HPF 10/01/2023 5:59 PM [facility] Mucus Present(A) None Seen /HPF 10/01/2023 5:59 PM [facility] White Blood Cell Clumps Present(A) None Seen /HPF 10/01/2023 5:59 PM [facility] Urine Source Clean Catch 10/01/2023 5:59 PM [facility] Urine URINE SPECIMEN COLLECTION, CLEAN CATCH / Unknown Non-blood Collection / Unknown 10/01/2023 5:44 PM CDT 10/01/2023 5:44 PM T Belén Arcos MD LAB_1 [facility] [address] [place] [address], [facility] * (ABNORMAL) Complete Blood Count-W/Diff (10/01/2023 5:37 PM CDT) [facility] Signature WBC 13.0(H) 3.5 - 10.5 x10(9)/L 10/01/2023 5:41 PM CDT [facility] RBC 4.80 3.90 - 5.03 x10(12)/L 10/01/2023 5:41 PM T [facility] Hemoglobin 14.5 12.0 - 15.5 g/dL 10/01/2023 5:41 PM T [facility] HCT 43.0 34.9 - 44.5 % 10/01/2023 5:41 PM [facility] MCV 89.6 80.0 - 100.0 fL 10/01/2023 5:41 PM T [facility] MCH 30.2 27.6 - 33.3 pg 10/01/2023 5:41 PM T [facility] MCHC 33.7 31.5 - 35.2 g/dL 10/01/2023 5:41 PM T [facility] RDW 13.2 11.9 - 15.5 % 10/01/2023 5:41 PM [facility] Platelets 270 150 - 450 x10(9)/L 10/01/2023 5:41 PM [facility] Automated NRBC 0 <=0 /100 WBC 10/01/2023 5:41 PM [facility] Neutrophil Absolute 9.4(H) 1.7 - 7.0 10(9)/L 10/01/2023 5:41 PM [facility] Lymphocyte Absolute 2.1 1.0 - 4.8 10(9)/L 10/01/2023 5:41 PM [facility] Monocyte Absolute 1.1(H) 0.2 - 0.9 10(9)/L 10/01/2023 5:41 PM [facility] Eosinophil Absolute 0.2 0.0 - 0.5 10(9)/L 10/01/2023 5:41 PM [facility] Basophil Absolute 0.1 0.0 - 0.3 10(9)/L 10/01/2023 5:41 PM [facility] Immature Granulocyte % 1.5(H) 0.0 - 0.5 % 10/01/2023 5:41 PM [facility] Blood Venipuncture / Unknown 10/01/2023 5:37 PM CDT 10/01/2023 5:39 PM CDT Belén Arcos MD LAB_1 [facility] [address] [place] [address], [facility] * (ABNORMAL) Basic Metabolic Panel (10/01/2023 5:37 PM CDT) Sodium 137 136 - 145 mmol/L 10/01/2023 5:58 PM [facility] Potassium 4.4 3.5 - 5.1 mmol/L 10/01/2023 5:58 PM [facility] Chloride 104 98 - 109 mmol/L 10/01/2023 5:58 PM [facility] CO2 25 20 - 29 mmol/L 10/01/2023 5:58 PM [facility] Anion Gap 8 7 - 16 mmol/L 10/01/2023 5:58 PM [facility] Calcium 9.1 8.4 - 10.4 mg/dL 10/01/2023 5:58 PM [facility] BUN 16 7 - 26 mg/dL 10/01/2023 5:58 PM [facility] Creatinine 0.66 0.55 - 1.02 mg/dL 10/01/2023 5:58 PM [facility] Glucose 113(H) 70 - 100 mg/dL 10/01/2023 5:58 PM [facility] Comment:The given reference range is for the fasting state. Non-fasting reference range for glucose is 70 - 180 mg/dL. GFR, Estimated >60 >60 mL/min/1.7 3m2 10/01/2023 5:58 PM [facility] Hours Fasting 0.1 8 - 12 Hours 10/01/2023 5:58 PM [facility] Comment:Lab unable to obtain patient's fasting status at time of specimen collection. Blood Venipuncture / Unknown 10/01/2023 5:37 PM CDT 10/01/2023 5:39 PM CDT Belén Arcos MD LAB_1 Performing Organization Address [facility] Co de Phone Number [facility] [address] [place] [address] * (ABNORMAL) C-Reactive Protein (10/01/2023 5:37 PM CDT) C-Reactive Protein 0.8(H) 0.0 - 0.5 mg/dL 10/01/2023 5:58 PM CDT [facility] Blood Venipuncture / Unknown 10/01/2023 5:37 PM CDT 10/01/2023 5:39 PM CDT Belén Arcos MD LAB_1 Performing Organization Address [facility] Co de Phone Number [facility] [address] [place] [address] documented in this encounter Visit Diagnoses Diagnosis Pelvic pain in female Unspecified symptom associated with female genital organs documented in this encounter Care Teams Aed Trainer Relationship Specialty Start Date End Date Juan Treadwell PA-C [address] [place] [address] PCP - General 11/01/13 documented as of this encounter
--- OUTSIDE RECORDS SUMMARY | 2023-11-10 08:15 | XMS_ITS | Encounter Summary ---
Author Name Unknown Organization [facility] Address [address] [place] [address] Care Team Providers Care Music Professionals Name Role Phone Juan Treadwell PA-C Primary Care Provider [phone] Reason for Visit * Procedure/Equipment (Routine) - Incomplete Specialty Diagnoses / Procedures Referred By Rollyac t Referred To Contact Diagnoses Leukocytosis, unspecified type (HRC) Procedures CT Abd Pelvis W IV Cont CT Abd Pelvis W/WO IV Cont Belén Arcos MD [address] [place] [address] Referral ID Status Reason Start Date Expiration Date V isits Requested Visits Authorized [id number] Incomplete 10/01/2023 12/30/2024 1 1 Encounter Details Date Type Department Care Team (Latest Contact Info) Description 10/01/2023 7:00 PM CDT Ancillary Procedure [place] [facility] [address] [address] Scan [address] [place] [phone] Belén Arcos MD [address] [place] [address] Leukocytosis, unspecified type (HRC) Social [...] Upcoming Encounters Date Type Department Care Team (Late st Contact Info) Description 11/13/2023 8:00 AM CDT Appointment [facility] [address] [place] [phone] Juan Treadwell PA-C [facility] [place] [phone] documented as of this encounter Procedures Procedure [...] mL documented in this encounter Care Teams Music Professionals Relationship Specialty Start Date End Date Juan Treadwell PA-C [address], [place] [address] PCP - General 11/01/13 documented as of this encounter
--- OUTSIDE RECORDS SUMMARY | 2023-11-10 08:15 | XMS_ITS | Encounter Summary ---
Author Name Unknown Organization [facility] Address [address] [place] [address] Care Team Providers Care Live In Companion Name Role Phone Juan Treadwell PA-C Primary Care Provider [phone] Reason for Referral * Consult/Transfer Care (Routine) - New Request Specialty Diagnoses / Procedures Referred By Surjit leiva Referred To Contact Diagnoses Pelvic pain in female Belén Arcos MD [address] [place] [address] Referral ID Status Reason Start Date Expiration Date V isits Requested Visits Authorized [id number] New Request 10/01/2023 12/30/2024 1 1 Scheduling Instructions Your clinician has recommended an appointment with [facility]. You can quickly make your appointment online at [employer]/schedule. You can also call [phone] for help scheduling your appointment. We suggest you call your health insurance company about your coverage and benefits for this appointment. Question Answer Appointment Urgency? Within 1 Week (Urgent) Consult for Gynecology Reason for visit? New onset pelvic pain history of fibroids and recent bladder sling follow up after pelvic ultrasound in one-week okayed by associate professor of geology on-call * Procedure/Equipment (Routine) - Incomplete Specialty Diagnoses / Procedures Referred By Surjit leiva Referred To Contact Diagnoses Pelvic pain in female Procedures US Pelvic Complete W EV Belén Arcos MD [address] [place] [address] Referral ID Status Reason Start Date Expiration Date V isits Requested Visits Authorized [id number] Incomplete 10/01/2023 12/30/2024 1 1 * Procedure/Equipment (Routine) - Incomplete Specialty Diagnoses / Procedures Referred By Contac t Referred To Contact Diagnoses Leukocytosis, unspecified type (HRC) Procedures CT Abd Pelvis W IV Cont CT Abd Pelvis W/WO IV Cont Belén Arcos MD [address] [place] [address] Referral ID Status Reason Start Date Expiration Date V isits Requested Visits Authorized [id number] Incomplete 10/01/2023 12/30/2024 1 1 Reason for Visit * Reason Comments Vaginal Discharge Encounter Details Date Type Department Care Team (Late st Contact Info) Description 10/01/2023 5:00 PM CDT Office Visit [facility] [address] [place] [address] Belén Arcos MD [address] [place] [address] Pelvic pain in female; Leukocytosis, unspecified type [...] tenderness without cervical motion tenderness, discuss with associate professor of geology on-call, they felt it was reasonable to treat for possible subclinical BV with pelvic ultrasound and early follow-up next week. Could be due to sloughingof fibroids subclinical PID versus other. She has increased pain fever she should promptly return to urgent care for re-evaluation. documented in this encounter Nursing Notes * Marsha Torres RN - 10/01/2023 5:00 PM CDT Pt seen in [facility] for lower abdominal pain on 09/29/23. Did [...] documented in this encounter Plan of Treatment Upcoming Encounters Date Type Department Care Team (Late st Contact Info) Description 11/13/2023 8:00 AM CDT Appointment [facility] [address] [place] [phone] Juan Treadwell PA-C [address] [place] [address] Scheduled Orders Name Type Priority Associated Diagnoses Orde r Schedule US Pelvic Complete W EV Imaging New Routine Pelvic pain in female Expected: 10/01/2023 (Approximate), Expires: 09/30/2024 Scheduled Referrals Name Type Priority Associated Diagnoses Orde r Schedule Ob-Assistant Front End Manager Consult Referral Routine Pelvic pain in female [...] Urine Negative Negative 10/01/2023 5:52 PM CDT [facility] Urine Non-blood Collection / Unknown 10/01/2023 5:44 PM CDT 10/01/2023 5:48 PM CDT Belén Arcos MD LAB_1 [facility] [address] [place] [address], [facility] * (ABNORMAL) UA with Microscopic: Clean Catch (10/01/2023 5:44 PM CDT) Urine Color Straw 10/01/2023 5:59 PM CDT [facility] Urine Clarity Hazy(A) Clear 10/01/2023 5:59 PM CDT [facility] Specific [place], Urine 1.025 1.005 - 1.030 10/01/2023 5:59 PM CDT [facility] PH Urine 6.0 5.0 - 8.0 10/01/2023 5:59 PM CDT [facility] Protein, Urine Qual (mg/dL) Negative Neg/Trace 10/01/2023 5:59 PM CDT [facility] Glucose Urine Qual (mg/dL) Negative Negative 10/01/2023 5:59 PM CDT [facility] Ketones, Urine (mg/dL) Negative Negative 10/01/2023 5:59 PM T [facility] Urobilinogen, Urine (EU/dL) 0.2 <2.0 10/01/2023 5:59 PM CDT [facility] Bilirubin Urine Negative Negative 10/01/2023 5:59 PM CDT [facility] Blood, Urine Negative Neg/Trace 10/01/2023 5:59 PM CDT [facility] Nitrite Urine Negative Negative 10/01/2023 5:59 PM CDT [facility] Leukocyte Est. Moderate(A) Negative 5:59 PM CDT [facility] Red Blood Cells 0-3 0 - 3 /HPF 10/01/2023 5:59 PM CDT [facility] White Blood Cells 21-50(A) 0 - 5 /HPF 10/01/2023 5:59 PM T [facility] Bacteria Occasional(A ) None Seen /HPF 10/01/2023 5:59 PM T [facility] Squamous Epithelial Cells Few None Seen, Occasional, Few /HPF 10/01/2023 5:59 PM T [facility] Mucus Present(A) None Seen /HPF 10/01/2023 5:59 PM T [facility] White Blood Cell Clumps Present(A) None Seen /HPF 10/01/2023 5:59 PM T [facility] Urine Source Clean Catch 10/01/2023 5:59 PM [facility] Urine URINE SPECIMEN COLLECTION, CLEAN CATCH / Unknown Non-blood Collection / Unknown 10/01/2023 5:44 PM CDT 10/01/2023 5:44 PM CDT Belén Arcos MD LAB_1 [facility] [address] [place] [address] * (ABNORMAL) Basic Metabolic Panel (10/01/2023 5:37 PM CDT) Sodium 137 136 - 145 mmol/L 10/01/2023 5:58 PM [facility] Potassium 4.4 3.5 - 5.1 mmol/L 10/01/2023 5:58 PM [facility] Chloride 104 98 - 109 mmol/L 10/01/2023 5:58 PM [facility] CO2 25 20 - 29 mmol/L 10/01/2023 5:58 PM [facility] Anion Gap 8 7 - 16 mmol/L 10/01/2023 5:58 PM [facility] Calcium 9.1 8.4 - 10.4 mg/dL 10/01/2023 5:58 PM [facility] BUN 16 7 - 26 mg/dL 10/01/2023 5:58 PM [facility] Creatinine 0.66 0.55 - 1.02 mg/dL 10/01/2023 5:58 PM [facility] Glucose 113(H) 70 - 100 mg/dL 10/01/2023 5:58 PM [facility] Comment:The given reference range is for the fasting state. Non-fasting reference range for glucose is 70 - 180 mg/dL. GFR, Estimated >60 >60 mL/min/1.7 3m2 10/01/2023 5:58 PM [facility] Hours Fasting 0.1 8 - 12 Hours 10/01/2023 5:58 PM [facility] Comment:Lab unable to obtain patient's fasting status at time of specimen collection. Blood Venipuncture / Unknown 10/01/2023 5:37 PM CDT 10/01/2023 5:39 PM CDT Belén Arcos MD LAB_1 [facility] [address] [place] [address], [facility] * (ABNORMAL) C-Reactive Protein (10/01/2023 5:37 PM CDT) C-Reactive Protein 0.8(H) 0.0 - 0.5 mg/dL 10/01/2023 5:58 PM T [facility] Blood Venipuncture / Unknown 10/01/2023 5:37 PM CDT 10/01/2023 5:39 PM CDT Belén Arcos MD LAB_1 [facility] [address] [place] [address] documented in this encounter Visit Diagnoses Diagnosis Pelvic pain in female Unspecified symptom associated with female genital organs Leukocytosis, unspecified type (HRC) Leukocytosis, unspecified type (HRC) documented in this encounter Care Teams Live In Companion Relationship Specialty Start Date End Date Juan Treadwell PA-C [address] [place], [place] [phone] PCP - General 11/01/13 documented as of this encounter
--- OUTSIDE RECORDS SUMMARY | 2023-11-10 08:15 | XMS_ITS | Encounter Summary ---
Author Name Unknown Organization [facility] Address [address] [place] [address] Care Team Providers Care Manager Work Name Role Phone Juan Treadwell PA-C Primary Care Provider [phone] Reason for Visit * Reason Comments Vaginal Discharge Encounter Details Date Type Department Care Team (Late st Contact Info) Description 09/29/2023 12:20 PM CDT Office Visit [facility] [address] [facility] [address] [place] [address] Dejah Ng MD [address] [place] [address] Frequency of urination; Vaginal discharge; [...] Everywhere. * UTI (Urinary Tract Infection): Female (Amharic) documented in this encounter Progress Notes * [...] Color Yellow Urine Clarity Clear Clear Specific [place], Urine 1.020 1.005 - 1.030 PH Urine [...] AM CDT Appointment [facility] [address] [place] [phone] Juan Treadwell PA-C [address] [place] [phone] documented as of this encounter Procedures Procedure [...] Detected Not Detected 09/30/2023 2:27 PM CDT [facility] N. gonorrhoeae STD Not Detected Not Detected 09/30/2023 2:27 PM CDT [facility] Swab STD SPECIMEN FROM VAGINA / Unknown Non-blood Collection / Unknown 09/29/2023 1:26 PM CDT 09/29/2023 1:29 PM CDT [facility] - 09/30/2023 2:27 PM CDT Test performed by Java Oracle Developer Mediated Amplification (TMA). Dejah Ng MD LAB_1 Performing Organization Address [facility] de Phone Number [facility] [address] * Vaginitis Panel (Includes Bacterial Vaginosis, Nette Species, Nette Glabrata and Trichomonas Vaginalis.) (09/29/2023 1:26 PM CDT) Pathologist [facility] Bacterial Vaginosis Negative Negative 09/30/2023 12:55 PM CDT [facility] Nette species Negative Negative 12:55 PM CDT [facility] Nette glabrata Negative Negative 09/30/2023 12:55 PM CDT [facility] Trichomonas vaginalis Negative Negative 09/30/2023 12:55 PM [address] [facility] Swab STD SPECIMEN FROM VAGINA / Unknown Non-blood Collection / Unknown 09/29/2023 1:26 PM CDT 09/29/2023 1:29 PM CDT [facility] - 09/30/2023 12:55 PM CDT Test performed by Java Oracle Developer Mediated Amplification (TMA). Dejah Ng MD LAB_1 Performing Organization Address [facility] de Phone Number [facility] [address] * (ABNORMAL) Urine Culture (09/29/2023 12:26 PM CDT) Pathologist [facility] Urine Culture Growth(A) 09/30/2023 4:35 PM CDT [facility] Urine Culture <10,000 CFU/mL Mixed Bacterial Growth 09/30/2023 4:35 PM CDT [facility] Comment: Mixed Bacterial Growth indicates the specimen is likely contaminated at collection with urogenital and/or fecal rosa. The presence of organisms at <10,000 cfu/ml in culture, UTI unlikely. Urine URINE SPECIMEN COLLECTION, CLEAN CATCH / Unknown Non-blood Collection / Unknown 09/29/2023 12:26 PM CDT 09/29/2023 12:45 PM CDT Ryan Leahy [facility]1 Performing Organization Address [facility]/ZIP Co de Phone Number [address] [address], [facility] * (ABNORMAL) Urine Microscopic Evaluation: Clean Catch (09/29/2023 12:26 PM CDT) Red Blood Cells 0-3 0 - 3 /HPF 12:45 PM CDT [facility] White Blood Cells 21-50(A) 0 - 5 /HPF 09/29/2023 12:45 PM CDT [facility] Bacteria Few(A) None Seen /HPF 09/29/2023 12:45 PM CDT [facility] Squamous Epithelial Cells Few None Seen, Occasional , Few /HPF 09/29/2023 12:45 PM CDT [facility] Urine URINE SPECIMEN COLLECTION, CLEAN CATCH / Unknown Non-blood Collection / Unknown 09/29/2023 12:26 PM CDT 09/29/2023 12:35 PM CDT Ryan Kent Tosin [facility] LAB_1 Performing Organization Address [facility]/ZIP Co de Phone Number [facility] [address] [place] [address], [facility] * (ABNORMAL) Urinalysis Routine, Micro/Culture if Pos: Clean Catch (09/29/2023 12:26 PM CDT) Urine Culture Comment Urinalysis results meet criteria for reflex, culture performed. 09/29/2023 12:45 PM CDT [facility] Urine Color Yellow 09/29/2023 12:45 PM CDT [facility] Urine Clarity Clear Clear 09/29/2023 12:45 PM CDT [facility] Specific [place], Urine 1.020 1.005 - 1.030 09/29/2023 12:45 PM CDT [facility] PH Urine 7.0 5.0 - 8.0 09/29/2023 12:45 PM CDT [facility] Protein, Urine Qual (mg/dL) Negative Neg/Trace 09/29/2023 12:45 PM CDT [facility] Glucose Urine Qual (mg/dL) Negative Negative 09/29/2023 12:45 PM CDT [facility] Ketones, Urine (mg/dL) Negative Negative 09/29/2023 12:45 PM CDT [facility] Urobilinogen, Urine (EU/dL) 0.2 <2.0 09/29/2023 12:45 PM CDT [facility] Bilirubin Urine Negative Negative 09/29/2023 12:45 PM CDT [facility] Blood, Urine Negative Neg/Trace 09/29/2023 12:45 PM CDT [facility] Nitrite Urine Negative Negative 09/29/2023 12:45 PM CDT [facility] Leukocyte Est. Small(A) Negative 09/29/2023 12:45 PM CDT [facility] Urine Source Clean Catch 09/29/2023 12:45 PM T [facility] Urine URINE SPECIMEN COLLECTION, CLEAN CATCH / Unknown Non-blood Collection / Unknown 09/29/2023 12:26 PM CDT 09/29/2023 12:35 PM CDT Ryan CUEVA LAB_1 [facility] [address] [place] [address], [facility] documented in this encounter Visit Diagnoses Diagnosis Frequency of urination Urinary frequency Vaginal discharge Leukorrhea, not specified as infective Acute cystitis without hematuria Acute cystitis documented in this encounter Care Teams Manager Work Relationship Specialty Start Date End Date Juan Treadwell PA-C [address] [place] [address] PCP - General 11/01/13 documented as of this encounter
--- OUTSIDE RECORDS SUMMARY | 2023-11-10 08:15 | XMS_ITS | Clinical Summary ---
Author Name Unknown Organization [facility] Address [address] [place] [address] Care Team Providers Care Harbor Boat Pilot Name Role Phone Juan Treadwell PA-C Primary Care Provider [phone] Source Comments You are receiving this document as you are listed as the primary care provider,follow-up provider, or the patient has been referred to you for consultation.This is in compliance with the Medicare and[facility] Hospital[facility] EHR Incentive Program,which states Providers who transition their patient to another setting of careor provider of care or refers their patient to another provider of care shouldprovide summary care record for each transition of care or referral. [employer] Allergies No known active allergies Medications Medication [...] A MEAL 90 Capsule 2 07/16/2023 Active Active Problems Problem Noted Date Diagnosed Date Stage 1 hypertension 09/22/2023 Atypical squamous cells of u ndetermined significance on cytologic smear of cervix (ASC-US) 07/17/2022 Overview: CCSM Review: History: 06/2022: ASCUS HPV neg Plan, per ASCCP guidelines: Repeat co-test in 3 years (2024) Anxiety 07/07/2022 Gastroesophageal reflux disease 02/26/2021 Chronic midline thoracic back pain 02/26/2021 Resolved Problems Problem Noted Date Diagnosed Date Resolved Date Mixed urge and stress incontinence 07/07/2022 09/22/2023 Encounters Date Type Department Care Team Description 10/01/2023 7:00 PM CDT Ancillary Procedure [facility] [address] [address] Scan [address] [place] [address] Belén Arcos MD Leukocytosis, unspecified type (HRC) 10/01/2023 5:40 PM CDT Lab Visit [facility] [address] [place] [phone] Pelvic pain in female 10/01/2023 5:00 PM CDT Office Visit [facility] [address] [place] [phone] Belén Arcos MD Pelvic pain in female; Leukocytosis, unspecified type (HRC) 10/01/2023 Telephone [facility] [address] [facility] [address] [place] [address] Juan Treadwell PA-C RESULTS, TEST 09/29/2023 12:20 PM CDT Office Visit [facility] [address] [facility] [id number] [place] [phone] Dejah Ng MD Frequency of urination; Vaginal discharge; Acute cystitis without hematuria 09/22/2023 10:00 AM CDT Telemedicine [facility] [address] [place] [address] Juan Treadwell PA-C Stage 1 hypertension (HRC) (Primary Dx) 09/10/2023 10:10 AM [employer] Ancillary Procedure [facility] [address] [place], [place] [phone] from Last 3 Months Immunizations Name Administration Dates Next Due Influenza (Flucelvax), Preserv Free QIV 04/02/20 21 Influenza (Fluzone 0.25, 6-35 mos) 05/06/2013 Influenza IIV4 (Quadrivalent) 0.5mL (87205) 03/2020,05/06/2013 Pfizer Monovalent 12+ Purple Top 07/20/2020,06/06 [...] 02/04/2023 2:28 PM CDT Plan of Treatment Upcoming Encounters Date Type Department Care Team (Late st Contact Info) Description 11/13/2023 8:00 AM CDT Appointment [facility] [address] [place] [phone] Juan Treadwell PA-C [address] [place] [address] Health Maintenance Due Date Last Done Comments HepB (1) 1996 FIT Colon Cancer Screening 2021 COVID-19 Vaccine ( season) 2023 07/20/2020, 07/02/2020 Adult Preventive Visit 06/25/2023 , 02/18/2019, 09/09/2017 Influenza (Season Ended) 2024 021, 03/14/2020, 05/06/2013, Additional history exists Mammogram 09/09/2024 09/10/2023, 0511/2021, 2018, Additional history exists Cervical Cancer Screening [...] this topic Medical Devices Implanted Type Area Associate Account Manager Device Identifier Shelf Expiration Date Model / Serial / Lot Sling Advantage Mid-Urethral - [id number] Implanted:Qty: 1 on 02/18/2023 by Jcarlos Larson MD at [facility] DEVICE N/A: VAGINA [employer] 11/23/2025 [id number] / / [id number] Procedures Procedure Name Priority Date/Time Associated Diagnosis [...] BILAT W CAD Routine 09/10/2023 10:13 AM [employer] HGB A1C Routine 02/04/2023 3:08 PM CDT [...] level PAP TEST Routine 06/25/2022 12:59 PM [employer] Screening for malignant neoplasm of cervix from [...] CDT) Urine Color Straw 10/01/2023 5:59 PM [facility] Urine Clarity Hazy(A) Clear 10/01/2023 5:59 PM [facility] Specific [place], Urine 1.025 1.005 - 1.030 10/01/2023 5:59 PM [facility] PH Urine 6.0 5.0 - 8.0 10/01/2023 5:59 PM [facility] Protein, Urine Qual (mg/dL) Negative Neg/Trace 10/01/2023 5:59 PM [facility] Glucose Urine Qual (mg/dL) Negative Negative 10/01/2023 5:59 PM [facility] Ketones, Urine (mg/dL) Negative Negative 10/01/2023 5:59 PM [facility] Urobilinogen, Urine (EU/dL) 0.2 <2.0 10/01/2023 5:59 PM CDT [facility] Bilirubin Urine Negative Negative 10/01/2023 5:59 PM CDT [facility] Blood, Urine Negative Neg/Trace 10/01/2023 5:59 PM CDT [facility] Nitrite Urine Negative Negative 10/01/2023 5:59 PM CDT [facility] Leukocyte Est. Moderate(A) Negative 5:59 PM CDT [facility] Red Blood Cells 0-3 0 - 3 /HPF 10/01/2023 5:59 PM CDT [facility] White Blood Cells 21-50(A) 0 - 5 /HPF 10/01/2023 5:59 PM CDT [facility] Bacteria Occasional(A ) None Seen /HPF 10/01/2023 5:59 PM CDT [facility] Squamous Epithelial Cells Few None Seen, Occasional, Few /HPF 10/01/2023 5:59 PM CDT [facility] Mucus Present(A) None Seen /HPF 10/01/2023 5:59 PM CDT [facility] White Blood Cell Clumps Present(A) None Seen /HPF 10/01/2023 5:59 PM CDT [facility] Urine Source Clean Catch 10/01/2023 5:59 PM CDT [facility] Urine URINE SPECIMEN COLLECTION, CLEAN CATCH / Unknown Non-blood Collection / Unknown 10/01/2023 5:44 PM CDT 10/01/2023 5:44 PM CDT Belén Arcos MD LAB_1 Performing Organization Address City/State/[facility] Co de Phone Number [facility] [address] [place] [phone] * Test (Urine) - Collect in Lab (10/01/2023 5:44 PM CDT) HCG, Urine Negative Negative 10/01/2023 5:52 PM CDT [facility] Urine Non-blood Collection / Unknown 10/01/2023 5:44 PM CDT 10/01/2023 5:48 PM CDT Belén Arcos MD LAB_1 [facility] [address] [place] [address], [facility] * (ABNORMAL) Complete Blood Count-W/Diff (10/01/2023 5:37 PM CDT) [facility] Signature WBC 13.0(H) 3.5 - 10.5 x10(9)/L 10/01/2023 5:41 PM CDT [facility] RBC 4.80 3.90 - 5.03 x10(12)/L 10/01/2023 5:41 PM T [facility] Hemoglobin 14.5 12.0 - 15.5 g/dL 10/01/2023 5:41 PM [facility] HCT 43.0 34.9 - 44.5 % 10/01/2023 5:41 PM [facility] MCV 89.6 80.0 - 100.0 fL 10/01/2023 5:41 PM T [facility] MCH 30.2 27.6 - 33.3 pg 10/01/2023 5:41 PM T [facility] MCHC 33.7 31.5 - 35.2 g/dL 10/01/2023 5:41 PM T [facility] RDW 13.2 11.9 - 15.5 % 10/01/2023 5:41 PM T [facility] Platelets 270 150 - 450 x10(9)/L 10/01/2023 5:41 PM [facility] Automated NRBC 0 <=0 /100 WBC 10/01/2023 5:41 PM T [facility] Neutrophil Absolute 9.4(H) 1.7 - 7.0 10(9)/L 10/01/2023 5:41 PM [facility] Lymphocyte Absolute 2.1 1.0 - 4.8 10(9)/L 10/01/2023 5:41 PM [facility] Monocyte Absolute 1.1(H) 0.2 - 0.9 10(9)/L 10/01/2023 5:41 PM [facility] Eosinophil Absolute 0.2 0.0 - 0.5 10(9)/L 10/01/2023 5:41 PM [facility] Basophil Absolute 0.1 0.0 - 0.3 10(9)/L 10/01/2023 5:41 PM [facility] Immature Granulocyte % 1.5(H) 0.0 - 0.5 % 10/01/2023 5:41 PM [facility] Blood Venipuncture / Unknown 10/01/2023 5:37 PM CDT 10/01/2023 5:39 PM CDT Belén Arcso MD LAB_1 [facility] [address] [place] [address], [facility] * (ABNORMAL) Basic Metabolic Panel (10/01/2023 5:37 PM CDT) Sodium 137 136 - 145 mmol/L 10/01/2023 5:58 PM [facility] Potassium 4.4 3.5 - 5.1 mmol/L 10/01/2023 5:58 PM [facility] Chloride 104 98 - 109 mmol/L 10/01/2023 5:58 PM [facility] CO2 25 20 - 29 mmol/L 10/01/2023 5:58 PM [facility] Anion Gap 8 7 - 16 mmol/L 10/01/2023 5:58 PM [facility] Calcium 9.1 8.4 - 10.4 mg/dL 10/01/2023 5:58 PM [facility] BUN 16 7 - 26 mg/dL 10/01/2023 5:58 PM [facility] Creatinine 0.66 0.55 - 1.02 mg/dL 10/01/2023 5:58 PM [facility] Glucose 113(H) 70 - 100 mg/dL 10/01/2023 5:58 PM [facility] Comment:The given reference range is for the fasting state. Non-fasting reference range for glucose is 70 - 180 mg/dL. GFR, Estimated >60 >60 mL/min/1.7 3m2 10/01/2023 5:58 PM [facility] Hours Fasting 0.1 8 - 12 Hours 10/01/2023 5:58 PM CDT [facility] Comment:Lab unable to obtain patient's fasting status at time of specimen collection. Blood Venipuncture / Unknown 10/01/2023 5:37 PM CDT 10/01/2023 5:39 PM CDT Belén Arcos MD LAB_1 Performing Organization Address [facility] Co de Phone Number [facility] [address] [place] [address] * (ABNORMAL) C-Reactive Protein (10/01/2023 5:37 PM CDT) C-Reactive Protein 0.8(H) 0.0 - 0.5 mg/dL 10/01/2023 5:58 PM CDT [facility] Blood Venipuncture / Unknown 10/01/2023 5:37 PM CDT 10/01/2023 5:39 PM CDT Belén Arcos MD LAB_1 Performing Organization Address [facility] de Phone Number [facility] [address] [place] [address] * Vaginitis Panel (Includes Bacterial Vaginosis, Nette Species, Nette Glabrata and Trichomonas Vaginalis.) (09/29/2023 1:26 PM CDT) Pathologist [facility] Bacterial Vaginosis Negative Negative 09/30/2023 12:55 PM CDT [facility] Nette species Negative Negative 12:55 PM CDT [facility] Nette glabrata Negative Negative 09/30/2023 12:55 PM CDT [facility] Trichomonas vaginalis Negative Negative 09/30/2023 12:55 PM CDT [facility] Swab STD SPECIMEN FROM VAGINA / Unknown Non-blood Collection / Unknown 09/29/2023 1:26 PM CDT 09/29/2023 1:29 PM CDT Narrative [facility] - 09/30/2023 12:55 PM CDT Test performed by Machine Installer Mediated Amplification (TMA). Dejah Ng MD LAB_1 Performing Organization Address [facility] Co de Phone Number [facility] [address] * Chlamydia & GC (14 Years and Older): Vagina (09/29/2023 1:26 PM CDT) Pathologist [facility] Chlamydia Trachomatis STD Not Detected Not Detected 09/30/2023 2:27 PM CDT [facility] N. gonorrhoeae STD Not Detected Not Detected 09/30/2023 2:27 PM CDT [facility] Swab STD SPECIMEN FROM VAGINA / Unknown Non-blood Collection / Unknown 09/29/2023 1:26 PM CDT 09/29/2023 1:29 PM CDT Narrative [facility] - 09/30/2023 2:27 PM CDT Test performed by Machine Installer Mediated Amplification (TMA). Dejah Ng MD LAB_1 Performing Organization Address [facility] de Phone Number [facility] [address] * (ABNORMAL) Urine Culture (09/29/2023 12:26 PM CDT) [facility] Urine Culture Growth(A) 09/30/2023 4:35 PM CDT [facility] Urine Culture <10,000 CFU/mL Mixed Bacterial Growth 09/30/2023 4:35 PM CDT [facility] Comment: Mixed Bacterial Growth indicates the specimen is likely contaminated at collection with urogenital and/or fecal rosa. The presence of organisms at <10,000 cfu/ml in culture, UTI unlikely. Urine URINE SPECIMEN COLLECTION, CLEAN CATCH / Unknown Non-blood Collection / Unknown 09/29/2023 12:26 PM CDT 09/29/2023 12:45 PM CDT Ryan CUEVA LAB_1 Performing Organization Address [facility]/[place] [address], [facility] * (ABNORMAL) Urinalysis Routine, Micro/Culture if Pos: Clean Catch (09/29/2023 12:26 PM CDT) Urine Culture Comment Urinalysis results meet criteria for reflex, culture performed. 09/29/2023 12:45 PM CDT [facility] Urine Color Yellow 09/29/2023 12:45 PM CDT [facility] Urine Clarity Clear Clear 09/29/2023 12:45 PM CDT [facility] Specific [place], Urine 1.020 1.005 - 1.030 09/29/2023 12:45 PM CDT [facility] PH Urine 7.0 5.0 - 8.0 09/29/2023 12:45 PM CDT [facility] Protein, Urine Qual (mg/dL) Negative Neg/Trace 09/29/2023 12:45 PM CDT [facility] Glucose Urine Qual (mg/dL) Negative Negative 09/29/2023 12:45 PM CDT [facility] Ketones, Urine (mg/dL) Negative Negative 09/29/2023 12:45 PM T [facility] Urobilinogen, Urine (EU/dL) 0.2 <2.0 09/29/2023 12:45 PM CDT [facility] Bilirubin Urine Negative Negative 09/29/2023 12:45 PM CDT [facility] Blood, Urine Negative Neg/Trace 09/29/2023 12:45 PM CDT [facility] Nitrite Urine Negative Negative 09/29/2023 12:45 PM CDT [facility] Leukocyte Est. Small(A) Negative 09/29/2023 12:45 PM CDT [facility] Urine Source Clean Catch 09/29/2023 12:45 PM T [facility] Urine URINE SPECIMEN COLLECTION, CLEAN CATCH / Unknown Non-blood Collection / Unknown 09/29/2023 12:26 PM CDT 09/29/2023 12:35 PM CDT Ryan CUEVA LAB_1 [facility] [address] [place] [address], [facility] * (ABNORMAL) Urine Microscopic Evaluation: Clean Catch (09/29/2023 12:26 PM CDT) Pathologist [facility] Red Blood Cells 0-3 0 - 3 /HPF 12:45 PM CDT [facility] White Blood Cells 21-50(A) 0 - 5 /HPF 09/29/2023 12:45 PM CDT [facility] Bacteria Few(A) None Seen /HPF 09/29/2023 12:45 PM CDT [facility] Squamous Epithelial Cells Few None Seen, Occasional , Few /HPF 09/29/2023 12:45 PM CDT [facility] Urine URINE SPECIMEN COLLECTION, CLEAN CATCH / Unknown Non-blood Collection / Unknown 09/29/2023 12:26 PM CDT 09/29/2023 12:35 PM CDT Ryan CUEVA LAB_1 [facility] [address] [place] [address] * MM Mammogram Screening Bilat W CAD (09/10/2023 10:13 AM [employer]) Anatomical Region Laterality Modality Breast Bilateral Mammography Impressions 09/10/2023 10:50 AM [employer]CR[employer] : ACR BI-RADS Category 1: Negative RECOMMENDATION: Follow Up Imaging in 12 months - Bilateral The results and recommendations of this examination will be communicated to the patient. Narrative 09/10/2023 10:50 AM [employer]CR[employer]E [employer]ON MM MAMMOGRAM SCREENING BILAT W CAD performed [...] Generation (02/04/2023 3:08 PM CDT) Pathologist [facility] HIV 1/2 Antigen/Antib siva (4th generation) Negative (Non Reactive) Negative (Non Reactive) 02/04/2023 8:43 PM CDT [facility] Comment:HIV-1 p24 Antigen an d HIV-1/HIV-2 Antibody not detected Blood Venipuncture / Unknown 02/04/2023 3:08 PM CDT 02/04/2023 3:08 PM CDT Juan Jonathan Treadwell PA-C LAB_1 Performing Organization Address City/[facility]/ZIP Co de Phone Number [facility] [address] [place] [address], [facility] * (ABNORMAL) Lipid Panel and Direct LDL(If Needed) (02/04/2023 3:08 PM CDT) Pathologist [facility] Cholesterol 181 0 - 199 mg/dL 02/04/2023 6:32 PM CDT [facility] Triglyceride 197(H) <=149 mg/dL 02/04/2023 6:32 PM CDT [facility] HDL Cholesterol 47 >=40 mg/dL 02/04/2023 6:32 PM T [facility] LDL, Calculated 95 <130 mg/dL 02/04/2023 6:32 PM T [facility] Non HDL Chol, Calculated 134 <=159 mg/dL 02/04/2023 6:32 PM T [facility] Cholesterol/HDL Ratio 3.9 02/04/2023 6:32 PM T [facility] Hours Fasting Unknown 02/04/2023 6:32 PM CDT [facility] ([facility]) Blood Venipuncture / Unknown 02/04/2023 3:08 PM CDT 02/04/2023 3:08 PM CDT Juan Treadwell PA-C LAB_1 Performing Organization Address [facility]/ZIP Co de Phone Number [facility] [address] [place] [address], [facility] [phone] [facility] ([facility]) [address] [place] [address], [facility] [phone] * Hepatitis C Antibody, with Reflex (02/04/2023 3:08 PM CDT) Hepatitis C Antibody Negative (Non Reactive) Negative (Non Reactive) 02/04/2023 8:43 PM CDT [facility] Comment:Antibodies to HCV no t detected. Does not exclude the possiblity of exposure to HCV. Blood Venipuncture / Unknown 02/04/2023 3:08 PM CDT 02/04/2023 3:08 PM CDT Juan Treadwell PA-C LAB_1 Performing Organization Address [facility] de Phone Number [facility] [address] * Hgb A1C (02/04/2023 3:08 PM CDT) Hemoglobin A1C 5.2 <=5.6 % 02/05/2023 9:32 AM CDT [facility] Estimated Average Glucose (Calc) 103 < 117 mg/dL 02/05/2023 9:32 AM CDT [facility] Comment:Estimated average gl ucose (eAG) converts A1c into glucose units (mg/dL) and estimates average glucose over the past approximately 3 months. The eAG reference interval (<117 mg/dL) corresponds to an A1c of <5.7%. Blood Venipuncture / Unknown 02/04/2023 3:08 PM CDT 02/04/2023 3:08 PM CDT Juan Treadwell PA-C LAB_1 Performing Organization Address [facility] de Phone Number [facility] [address] [phone] * (ABNORMAL) PAP Test (06/25/2022 12:59 PM [employer]CR[employer]) Case Report Pap ? Case: [id number] ? Authorizing Provider: ??Juan Treadwell PA-C ?Collected: ? 06/25/2022 1259 ? Ordering Location: ? [facility] ?Received: ?06/25/2022 1538 ? First Screen: ?Chiara Hudson ? Pathologist: ? Ever Ignacio MD ? Specimen: ?Pap Test, Routine, Cervix/Endocerv ix ? 07/17/2022 8:15 AM [employer]CR[employer]E [employer]ON [facility] Pap Specimen Adequacy Satisfactory for evaluation, endocervical/tr ansformation zone component present. 07/17/2022 8:15 AM [employer]CR[employer]E [employer]ON [facility] Pap Interpretation (ASC-US) Atypical squamous cells of undetermined significance.(A ) 07/17/2022 8:15 AM [employer]CR[employer]E [employer]ON [facility] Pap Disclaimer The Pap test is a screening test designed to aid in the detection of cervical cancer and its precursor lesions. It is not a diagnostic procedure and should not be used as the sole means of detecting cervical cancer. Both false-positive and false-negative results may occur. 07/17/2022 8:15 AM [employer]CR[employer]E [employer]ON [facility] Gross Description The specimen is received in SurePath fixative and properly labeled. 1 Pap-stained SurePath slide is prepared. 07/17/2022 8:15 AM [employer]CR[employer]E [employer]ON [facility] Embedded Images 8:15 AM [employer]CR[employer]E [employer]ON [facility] Other Specimen Type ENTIRE ENDOCERVIX / Unknown 06/25/2022 12:59 PM [employer] 06/25/2022 3:38 PM [employer] Comment:LMP: No LMP recorded . Juan Treadwell PA-C LAB PATHOLOGY [facility] [address] [place] [address], [facility] from Last 3 Months or Most Recently Relevant to Health Maintenance Care Teams Harbor Boat Pilot Relationship Specialty Start Date End Date Juan Treadwell PA-C [address] [place] [address] PCP - General 11/01/13
--- OUTSIDE RECORDS SUMMARY | 2023-11-10 08:15 | XMS_ITS | Data Portability ---
Author Name Unknown Address [address] [place] [address] Phone [phone] Organization [place] - [facility], [address] Address [address] [facility] [address] [place] [address] Assessment No assessment recorded. Plan of Treatment [...] Encounter Closed Date Diagnosis/Indication Diagnosis SNOMED-CT Code [id number] [address] [place] [address] 06/23/2019 17:14:47 06/23/2019 18:21:44 Health Concerns Section Related Observation LastModified by Organization Detai ls LastModified Time None Recorded Concern Status LastModified by Organization Details LastModified Time None Recorded Advance Directives Directive None Recorded Payers Encounter Date Sequence Insurance Name Policy Number Policy Brown Covered Member ID Brown Member ID Guarantor Name 06/23/2019 1 [employer] [id number] Donal Oliva [id number] Ness Oliva OBGyn Episode No OBEpisode recorded.
--- OUTSIDE RECORDS SUMMARY | 2023-11-10 08:15 | XMS_ITS | Clinical Summary ---
Author Name Unknown Organization [facility] Address [place], [place] [address] Care Team Providers Care Music Engraver Name Role Phone Juan Treadwell Primary Care Provider [phone] Allergies No known active allergies Medications Medication Sig Dispensed Refills Start Date End Date Status omeprazole (PRILOSEC) 40 mg Delayed-Release capsule TAKE 1 CAPSULE BY MOUTH EVERY DAY 1 HOUR BEFORE A MEAL 07/16/2023 Active sertraline (ZOLOFT) 100 mg tablet Take 150 mg by mouth. 04/24/2023 07/08/2024 Active albuterol HFA (PRO-AIR; VENTOLIN; PROVENTIL) 90 mcg/actuation inhalerIndications:B ronchitis Inhale 2 Puffs by mouth 4 times daily if needed for Shortness of Breath 1st choice. 1 Each 09/18/2023 Active Encounters Date Type Department Care Team Description 09/18/2023 8:47 PM CDT - 09/18/2023 10:18 PM CDT Emergency [facility] [address] [facility] [place] [address] Antonietta Klein PA Bronchitis (Primary Dx) Discharge [...] for age 45-75 2022 COVID-19 vaccine series (2022-24 season) 2023 07/20/2020, 07/02/2020 Influenza for age 9-49 03/06/2024 Pneumococcal series for age 6-64 Aged Out [...] a result of the Cures Act, medical imagingexams and procedure reports are released immediately into your electronicmedical record. You may view this report before your referring provider.If you have questions, please contact your health care provider. EXAM: XR CHEST 2 VIEWS PA AND LATERAL LOCATION: [facility] DATE: 09/18/2023 INDICATION: Cough COMPARISON: None. IMPRESSION: Negative chest. Antonietta Chau GENERAL IM AGING from Last 3 Months Care Teams Music Engraver Relationship Specialty Start Date End Date Juan Treadwell PA [address] [place] [address] PCP - General 03/08/21
--- OUTSIDE RECORDS SUMMARY | 2023-11-10 08:15 | XMS_ITS | Encounter Summary ---
Author Name Unknown Organization [facility] Address [address] [place] [address] Care Team Providers Care Information Coordinator Name Role Phone Juan Treadwell PA-C Primary Care Provider Reason for Visit * Reason Comments RESULTS, TEST Encounter Details Date Type Department Care Team (Late st Contact Info) Description 10/01/2023 Telephone [facility] [address] [facility] [address] [place] [address] Juan Treadwell PA-C [address] [place] [address] RESULTS, TEST Social History Tobacco [...] patient regarding labs, questions answered. * Maru aBin V - 10/01/2023 3:29 PM CDT Test Results What test are you calling about? All labs have been done 09/28 Primary Dishwasher Busser: Juan Treadwell PA-C Who ordered the test? [...] AM CDT Appointment [facility] [address] [phone] Juan Treadwell PA-C [address] [place] [id number] documented as of this encounter Visit Diagnoses Not on filedocumented in this encounter Care Teams Information Coordinator Relationship Specialty Start Date End Date Juan Treadwell PA-C [address] [phone] PCP - General 11/01/13 documented as of this encounter
--- OUTSIDE RECORDS SUMMARY | 2023-11-10 08:15 | XMS_ITS | Encounter Summary ---
Author Name Unknown Organization [facility] Address [address] [place] [address] Care Team Providers Care Crop Duster Helper Name Role Phone Juan Treadwell PA-C Primary Care Provider [phone] Reason for Referral * Procedure/Equipment (Routine) - Incomplete Specialty Diagnoses / Procedures Referred By Surjit leiva Referred To Contact Procedures MM Mammogram Screening Juan Cloud PA-C [address] [place] [address] Referral ID Status Reason Start Date Expiration Date V isits Requested Visits Authorized [id number] Incomplete 09/10/2023 12/09/2024 1 1 ITY ASSURANCE ASSOCIATE Reason for Visit * Procedure/Equipment (Routine) - Incomplete Specialty Diagnoses / Procedures Referred By Surjit leiva Referred To Contact Procedures MM Mammogram Screening Juan Cloud PA-C [address] [place] [address] Referral ID Status Reason Start Date Expiration Date V isits Requested Visits Authorized [id number] Incomplete 09/10/2023 12/09/2024 1 1 Encounter Details Date Type Department Care Team ([facility] st Contact Info) Description 09/10/2023 10:10 AM QUALITY ASSURANCE ASSOCIATE Ancillary Procedure Formerly [facility] [address] [place] [address] Social History Tobacco Use Types Packs/Day Years [...] 8:00 AM CDT Appointment [facility] [place] JEMIMA Watson [phone] Juan Treadwell PA-C [address] [place] [address] JEMIMA Matt [phone] documented as of this encounter Procedures Procedure Name Priority Date/Time Associated Diagnosis Comments MM MAMMOGRAM SCREENING BILAT W CAD Routine 09/10/2023 10:13 AM QUALITY ASSURANCE ASSOCIATE documented in this encounter Results * MM Mammogram Screening Bilat W CAD (09/10/2023 10:13 AM QUALITY ASSURANCE ASSOCIATE) Anatomical Region Laterality Modality Breast Bilateral Mammography Impressions 09/10/2023 10:50 AM QUALITY ASSURANCE ASSOCIATE : ACR BI-RADS Category 1: Negative RECOMMENDATION: Follow Up Imaging in 12 months - Bilateral The results and recommendations of this examination will be communicated to the patient. Narrative 09/10/2023 10:50 AM QUALITY ASSURANCE ASSOCIATE MM MAMMOGRAM SCREENING BILAT W CAD performed [...] on filedocumented in this encounter Care Teams Crop Duster Helper Relationship Specialty Start Date End Date Juan Treadwell PA-C [address] [place] [address] PCP - General 11/01/13 documented as of this encounter
--- OUTSIDE RECORDS SUMMARY | 2023-11-10 08:15 | XMS_ITS | Encounter Summary ---
Author Name Unknown Organization [facility] Address [address] [place] [address] Care Team Providers Care Credit Counselor Name Role Phone Juan Treadwell PA-C Primary Care Provider [phone] Reason for Visit * Reason Onset Date Comments BLOOD PRESSURE, HIGH Video Visit 09/22/2023 Encounter Details Date Type Department Care Team (Late st Contact Info) Description 09/22/2023 10:00 AM CDT Telemedicine [facility] [address] [facility] [place] [phone] Juan Treadwell PA-C [address] [place], [place] [address] [address] Stage 1 hypertension (HRC) (Primary [...] to Take Your Blood Pressure at Home (Palauan) * !The DASH Eating Plan: Healthy eating to lower your blood pressure (Palauan) documented in this encounter Progress Notes * [...] 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 She is running the entire time she [...] on: Time including, but not limited to, [id number] time spent reviewing records, counseling, and coordination of care. documented in this encounter Plan of Treatment Upcoming Encounters Date Type Department Care Team (Late st Contact Info) Description 11/13/2023 8:00 AM CDT Appointment [facility] [address] [phone] Juan Treadwell PA-C Formerly [facility] [place] [address] documented as of this encounter Visit Diagnoses Diagnosis Stage 1 hypertension (HRC)- Primary documented in this encounter Care Teams Credit Counselor Relationship Specialty Start Date End Date Juan Treadwell PA-C [address] [place] [address] PCP - General 11/01/13 documented as of this encounter
--- OUTSIDE RECORDS SUMMARY | 2023-11-10 08:16 | XMS_ITS | Encounter Summary ---
Author Name Unknown Organization [place] Address [address] [place] [address] Care Team Providers Care Supervisor Roving Department Name Role Phone [facility] Bishop Primary Care Provider Samia pralicia [facility], Kirstin Lyons Primary Care Provide r Encounter Details Date Type Department Care Team (Late st Contact Info) Description 01/25/2010 Clinic Report (Animal Assisted Therapist) [address] [phone] Madie Murray MD NO INFO AVAILABLE 09/17/2022 [...] on filedocumented in this encounter Care Teams Supervisor Roving Department Relationship Specialty Start Date End Date Eloy Bishop PCP - General Family Practice 06/23/19 [facility]02[facility] [address] [place] [address] PCP - General 12/03/22 documented as of this encounter
--- OUTSIDE RECORDS SUMMARY | 2023-11-10 08:16 | XMS_ITS | Referral Summary ---
Author Name Unknown Organization [place] Address [address] [place] [address] Care Team Providers Care Foot Doctor Name Role Phone Clinic, Kirstin Lyons Primary [...] Comments Blood Pressure 129/86 06/23/2019 6:02 PM ACQUISITIONS ANALYST Pulse 60 06/23/2019 6:02 PM ACQUISITIONS ANALYST Temperature 37 ??C (98.6 ??F) 06/23/2019 5:31 PM ACQUISITIONS ANALYST Respiratory Rate 14 06/23/2019 7:01 PM ACQUISITIONS ANALYST Oxygen Saturation 97% 06/23/2019 6:50 PM ACQUISITIONS ANALYST Inhaled Oxygen Concentration - - Weight - - Height - - Body Mass Index - - Plan of Treatment Not on file Procedures Procedure Name Priority Date/Time Associated Diagnosis Comments BASIC METABOLIC PANEL STAT 06/23/2019 6:09 PM ACQUISITIONS ANALYST PAP LB RFX HPV ASCU ([facility]) Routine 09/11/2011 8:52 PM ACQUISITIONS ANALYST HCV ANTIBODY ([facility]) Routine 07/24/2010 1:45 PM ACQUISITIONS ANALYST from Last 3 Months or Most Recently Relevant to Health Maintenance Results * (ABNORMAL) Basic metabolic panel (BMP) (06/23/2019 6:09 PM ACQUISITIONS ANALYST) Sodium 141 133 - 144 mmol/L 06/23/2019 6:27 PM [facility] Potassium 3.2(L) 3.4 - 5.3 mmol/L 06/23/2019 6:27 PM [facility] Chloride 108 94 - 109 mmol/L 06/23/2019 6:27 PM [facility] Carbon Dioxide 26 20 - 32 mmol/L 06/23/2019 6:33 PM [facility] Anion Gap 7 3 - 14 mmol/L 06/23/2019 6:33 PM [facility] Glucose 105(H) 70 - 99 mg/dL 06/23/2019 6:33 PM [facility] Urea Nitrogen 20 7 - 30 mg/dL 06/23/2019 6:33 PM [facility] Creatinine 0.66 0.52 - 1.04 mg/dL 06/23/2019 6:33 PM [facility] GFR Estimate >90 >60 mL/min/{1. 73_m2} 06/23/2019 6:33 PM [facility] Comment: Non GFR Calc Starting 06/22/2018, serum creatinine based estimated GFR (eGFR) will be calculated using the Chronic Kidney Disease Epidemiology Collaboration (CKD-EPI) equation. GFR Estimate If Black >90 >60 mL/min/{1. 73_m2} 06/23/2019 6:33 PM [facility] Comment: GFR Calc Starting 06/22/2018, serum creatinine based estimated GFR (eGFR) will be calculated using the Chronic Kidney Disease Epidemiology Collaboration (CKD-EPI) equation. Calcium 8.8 8.5 - 10.1 mg/dL 06/23/2019 6:33 PM [facility] Blood specimen (specimen) 06/23/2019 6:09 PM ACQUISITIONS ANALYST 06/23/2019 6:16 PM ACQUISITIONS ANALYST Arvind Larose MD LAB - BLOOD ORDER BILL [facility] Alyssa E Magalis Abdullahi [place] [id number], [facility] [phone] * Pap Lb rfx HPV ASCU ([facility]) (09/11/2011 8:52 PM ACQUISITIONS ANALYST) DIAGNOSIS: Comment [facility] HISTORICAL RESULTS Comment: NEGATIVE FOR INTRAEPITHELIAL LESION AND MALIGNANCY. ?? THIS SPECIMEN WAS RESCREENED PART OF OUR SOLE LEATHER CUTTING MACHINE OPERATOR PROGRAM. ?? Specimen adequacy: Comment B HISTORICAL RESULTS Comment: Satisfactory for evaluation. ??Endocervical and/or squamous metaplastic ?? cells (endocervical component) are present. ?? Performed by: Comment [facility] HISTORICAL RESULTS QC reviewed by: Comment [facility] HISTORICAL RESULTS Comment: Ezequiel Headley, Machine Builder ([facility]) ?? . 0 [facility] HISTORICAL [...] performed. ?? . ?? 09/11/2011 8:52 PM ACQUISITIONS ANALYST 09/17/2011 8:19 PM CDT Madie Murray MD LAB - [facility] HISTORICAL RESULTS * HCV Antibody ([facility]) (07/24/2010 1:45 PM ACQUISITIONS ANALYST) Pathologist [facility] Hep C Virus Ab <0.1 0.0 - [...] or PCR testing. ?? 07/24/2010 1:45 PM ACQUISITIONS ANALYST 07/26/2010 12:14 AM ACQUISITIONS ANALYST Rupinder Hanson DO LAB - [facility] HISTORICAL RESULTS from Last 3 Months or Most Recently Relevant to Health Maintenance Care Teams Foot Doctor Relationship Specialty Start Date End Date Clinic, Kirstin Lyons [facility] [place] [address] PCP - General 12/03/22
--- OUTSIDE RECORDS SUMMARY | 2023-11-10 08:16 | XMS_ITS | Encounter Summary ---
Author Name Unknown Organization [place] Address [address] [place] [address] Care Team Providers Care Sales Development Executive Name Role Phone [facility] Bishop Primary Care Provider [facility]ero [facility] Provide r Encounter Details Date Type Department Care Team (Late st Contact Info) Description 06/13/2011 Clinic Report (Manager French) [address] [phone] [place] [address] [facility] [address] [place], [place] [phone] Social History Tobacco Use Types Packs/Day Years [...] and wishes to proceed. Patient Instructions: None LE MAKER documented in this encounter Plan of Treatment Not on file documented as of this encounter Visit Diagnoses Not on filedocumented in this encounter Care Teams Sales Development Executive Relationship Specialty Start Date End Date [facility]oy Bishop PCP - General Family Practice 06/23/19 12/02[facility]22 [facility] [address] [place] [address] PCP - General 12/03/22 documented as of this encounter
--- OUTSIDE RECORDS SUMMARY | 2023-11-10 08:16 | XMS_ITS | Encounter Summary ---
Author Name Unknown Organization [facility] Address [address] [place] [address] Care Team Providers Care Soils Analyst Name Role Phone Eloy Bishop Primary Care Provider Samia vaalicia [facility], Kirstin Lyons Primary Care Provide r Encounter Details Date Type Department Care Team (Late st Contact Info) Description 09/11/2011 Clinic Report (Associate Buyer) [address] [phone] Madie Murray MD NO INFO AVAILABLE 09/17/2022 [...] 14 years from the [place]ia [facility] [place] She presented for well woman exam ([age] [...] on filedocumented in this encounter Care Teams Soils Analyst Relationship Specialty Start Date End Date Eloy Bishop PCP - General Family Practice 06/23/19 12/02/22 [facility], Kirstin Lyons [facility] [place] [address] PCP - General 12/03/22 documented as of this encounter
--- OUTSIDE RECORDS SUMMARY | 2023-11-10 08:16 | XMS_ITS | Clinical Summary ---
Author Name Unknown Organization [place] Address [address] [place] [address] Care Team Providers Care Hot Stone Setter Name Role Phone Clinic, Kirstin Lyons Primary [...] Comments Blood Pressure 129/86 06/23/2019 6:02 PM HOSPICE HOME HEALTH AIDE Pulse 60 06/23/2019 6:02 PM HOSPICE HOME HEALTH AIDE Temperature 37 ??C (98.6 ??F) 06/23/2019 5:31 PM HOSPICE HOME HEALTH AIDE Respiratory Rate 14 06/23/2019 7:01 PM HOSPICE HOME HEALTH AIDE Oxygen Saturation 97% 06/23/2019 6:50 PM HOSPICE HOME HEALTH AIDE Inhaled Oxygen Concentration - - Weight - [...] 19, 09/09/2017 GLUCOSE 06/23/2022 06/23/2019 COVID-19 Vaccine (2022-2 4 season) 2023 PHQ-2 (once per calendar year) 2023 INFLUENZA VACCINE (Season Ended) 2024 05/06/2013, 05/06/2013 HEPATITIS C SCREENING Completed 07/24/2010 HPV IMMUNIZATION [...] BASIC METABOLIC PANEL STAT 06/23/2019 6:09 PM HOSPICE HOME HEALTH AIDE PAP LB RFX HPV ASCU ([facility]) Routine 09/11/2011 8:52 PM HOSPICE HOME HEALTH AIDE HCV ANTIBODY ([facility]) Routine 07/24/2010 1:45 PM HOSPICE HOME HEALTH AIDE from Last 3 Months or Most Recently Relevant to Health Maintenance Results * (ABNORMAL) Basic metabolic panel (BMP) (06/23/2019 6:09 PM HOSPICE HOME HEALTH AIDE) Sodium 141 133 - 144 mmol/L 06/23/2019 6:27 PM [facility] Potassium 3.2(L) 3.4 - 5.3 mmol/L 06/23/2019 6:27 PM [facility] Chloride 108 94 - 109 mmol/L 06/23/2019 6:27 PM [facility] Carbon Dioxide 26 20 - 32 mmol/L 06/23/2019 6:33 PM [facility] Anion Gap 7 3 - 14 mmol/L 06/23/2019 6:33 PM [facility] Glucose 105(H) 70 - 99 mg/dL 06/23/2019 6:33 PM HOSPICE HOME HEALTH AIDE [facility] Urea Nitrogen 20 7 - 30 mg/dL 06/23/2019 6:33 PM [facility] Creatinine 0.66 0.52 - 1.04 mg/dL 06/23/2019 6:33 PM [facility] GFR Estimate >90 >60 mL/min/{1. 73_m2} 06/23/2019 6:33 PM HOSPICE HOME HEALTH AIDE [facility] Comment: Non GFR Calc Starting 06/22/2018, serum creatinine based estimated GFR (eGFR) will be calculated using the Chronic Kidney Disease Epidemiology Collaboration (CKD-EPI) equation. GFR Estimate If Black >90 >60 mL/min/{1. 73_m2} 06/23/2019 6:33 PM [facility] Comment: GFR Calc Starting 06/22/2018, serum creatinine based estimated GFR (eGFR) will be calculated using the Chronic Kidney Disease Epidemiology Collaboration (CKD-EPI) equation. Calcium 8.8 8.5 - 10.1 mg/dL 06/23/2019 6:33 PM [facility] Blood specimen (specimen) 06/23/2019 6:09 PM HOSPICE HOME HEALTH AIDE 06/23/2019 6:16 PM HOSPICE HOME HEALTH AIDE Arvind Larose MD LAB - BLOOD ORDER BILL [facility] [address] [place] [address], [facility] [phone] * Pap Lb rfx HPV ASCU ([facility]) (09/11/2011 8:52 PM HOSPICE HOME HEALTH AIDE) DIAGNOSIS: Comment [facility] HISTORICAL RESULTS Comment: NEGATIVE FOR INTRAEPITHELIAL LESION AND MALIGNANCY. ?? THIS SPECIMEN WAS RESCREENED PART OF OUR UNIT SECY PROGRAM. ?? Specimen adequacy: Comment B HISTORICAL RESULTS Comment: Satisfactory for evaluation. ??Endocervical and/or squamous metaplastic ?? cells (endocervical component) are present. ?? Performed by: Comment [facility] HISTORICAL RESULTS QC reviewed by: Comment [facility] HISTORICAL RESULTS Comment: Ezequiel Headley, Document Design Specialist (ASCP) ?? . 0 [facility] HISTORICAL RESULTS Note: Comment [facility] HISTORICAL RESULTS Comment: The Pap smear is a screening test designed to aid in the detection of ?? premalignant and malignant conditions of the uterine cervix. ??It is not a ?? diagnostic procedure and should not be used as the sole means of detecting ?? cervical cancer. ??Both false-positive and false-negative reports do occur. ?? . ?? . Comment [facility] HISTORICAL RESULTS Comment: The HPV DNA reflex criteria were not met with this specimen result ?? therefore, no HPV testing was performed. ?? . ?? 09/11/2011 8:52 PM HOSPICE HOME HEALTH AIDE 09/17/2011 8:19 PM CDT Madie Murray MD LAB - [facility] Performing Organization Address [facility] Co de Phone Number [facility] HISTORICAL RESULTS * HCV Antibody ([facility]) (07/24/2010 1:45 PM HOSPICE HOME HEALTH AIDE) Hep C Virus Ab <0.1 0.0 - 0.9 s/co ratio [facility] HISTORICAL RESULTS Comment: Negative: ? < 0.8 ?? Indeterminate 0.8 - 0.9 ?? Positive: ? > 0.9 ?? . ?? In order to reduce the incidence of a false positive ?? result, the CDC recommends that all s/co ratios ?? between 1.0 and 10.9 be confirmed with additional ?? RIBA or PCR testing. ?? 07/24/2010 1:45 PM HOSPICE HOME HEALTH AIDE 07/26/2010 12:14 AM HOSPICE HOME HEALTH AIDE Rupinder Hanson DO LAB - [facility] Performing Organization Address City/[facility] Co de Phone Number [facility] HISTORICAL RESULTS from Last 3 Months or Most Recently Relevant to Health Maintenance Care Teams Hot Stone Setter Relationship Specialty Start Date End Date Clinic, Kirstin Lyons [address] [place] [address] PCP - General 12/03/22
--- OUTSIDE RECORDS SUMMARY | 2023-11-10 08:16 | XMS_ITS | Encounter Summary ---
Author Name Unknown Organization [facility] Address [address] [place] [address] Care Team Providers Care Architecture Intern Name Role Phone [facility] Bishop Primary Care Provider [facility]ero [facility] Provide r Encounter Details Date Type Department Care Team (Late st Contact Info) Description 07/24/2010 Clinic Report (Health Policy Nurse) [address] [phone] [place] [address] [facility] [place] [address] Social History Tobacco Use Types [...] form: 'Patient Medication Summary'. Patient Instructions: None R LABORATORY TECHNICIAN documented in this encounter Plan of Treatment Not on file documented as of this encounter Visit Diagnoses Not on filedocumented in this encounter Care Teams Architecture Intern Relationship Specialty Start Date End Date Eloy Bishop PCP - General Family Practice 06/23/19 12[facility]02[facility]22 [facility] [address] [place] [address] PCP - General 12/03/22 documented as of this encounter
--- OUTSIDE RECORDS SUMMARY | 2023-11-10 08:16 | XMS_ITS | Encounter Summary ---
Author Name Unknown Organization [place] Address [address] [place] [address] Care Team Providers Care Hog Killer Name Role Phone [facility]oy Bishop [facility] K[facility] Lyons Primary Care Provide r Encounter Details Date Type Department Care Team (Late st Contact Info) Description 04/22/2007 Clinic Report (Junior Network Engineer) [address] [phone] Madie Murray MD NO INFO AVAILABLE 09/17/2022 [...] on filedocumented in this encounter Care Teams Hog Killer Relationship Specialty Start Date End Date Eloy Bishop PCP - General Family Practice 06/23/19 12/02/22 Clinic, Kirstin Lyons [address] [place] [address] PCP - General 12/03/22 documented as of this encounter
== END 2023-11-10 08:12 | disposition home or self-care (01) ==
LOC: MRI 08:13
PROVIDERS: Visit Provider Surgery
DX: K80.20 Calculus of gallbladder without cholecystitis without obstruction (principal); K76.0 Fatty (change of) liver, not elsewhere classified; R16.1 Splenomegaly, not elsewhere classified
CPT/HCPCS: 74181

== ENCOUNTER 2023-11-24 06:45 | Day surgery (SDC) | payer OTHER, SELFPAY ==
[2023-11-24] VITALS (13 sets, daily range): BP systolic 116–130; BP diastolic 63–92; PULSE 62–88; RESP 12–18; TEMP 36.8–36.9; O2SAT 93–96
--- OUTSIDE RECORDS SUMMARY | 2023-11-24 06:48 | XMS_ITS | Clinical Summary ---
Author Name Unknown Organization [facility] Address [address] [place] [address] Care Team Providers Care Dehydration Unit Operator Name Role Phone Juan Treadwell PA-C Primary Care Provider [phone] Source Comments You are receiving this document as you are listed as the primary care provider,follow-up provider, or the patient has been referred to you for consultation.This is in compliance with the Medicare andOhio[facility] Hospitalca[facility] EHR Incentive Program,which states Providers who transition their patient to another setting of careor provider of care or refers their patient to another provider of care shouldprovide summary care record for each transition of care or referral. [facility] Allergies No known active allergies Medications Medication Sig Dispensed Refills Start Date End Date Status melatonin 5 MG tablet Take 1 Tablet (5 mg) by mouth daily at bedtime. Active omeprazole (PRILOSEC) 40 MG capsuleIndications :Gastroesophageal reflux disease, unspecified whether esophagitis present TAKE 1 CAPSULE BY MOUTH EVERY DAY 1 HOUR BEFORE A MEAL 90 Capsule 2 07/16/2023 Active sertraline (ZOLOFT) 100 MG tabletIndications: Anxiety (HRC) Take 1 Tablet (100 mg) by mouth daily. 11/13/2023 11/12/2024 Active sertraline (ZOLOFT) 100 MG tablet Take 1.5 Tablets (150 mg) by mouth daily. 135 Tablet 3 07/09/2023 11/13/2023 Discontinued (*Med change OR same med OR reorder, new dose/directi ons) Active Problems Problem Noted Date Diagnosed Date Atypical squamous cells of u ndetermined significance on cytologic smear of cervix (ASC-US) 07/17/2022 Overview: [facility] Review: History: 06/2022: ASCUS HPV neg Plan, per ASCCP guidelines: Repeat co-test in 3 years (2024) Anxiety 07/07/2022 Gastroesophageal reflux disease 02/26/2021 Chronic midline thoracic back pain 02/26/2021 Resolved Problems Problem Noted Date Diagnosed Date Resolved Date Stage 1 hypertension 09/22/2023 024 Mixed urge and stress incontinence 07/07/2022 09/22/2023 Encounters Date Type Department Care Team Description 11/13/2023 8:30 AM CDT Lab Visit [facility] [address] [place], [place] [id number] Preop examination 11/13/2023 8:00 AM CDT Pre-Op Visit [facility] [address] [place] [address] Juan Treadwell PA-C Preop examination (Primary Dx); Gallstones; Gastroesophageal reflux disease without esophagitis; Anxiety (HRC) 11/13/2023 Telephone [facility] [address] [place] [address] Juan Treadwell PA-C Fax (Faxed pre op) 10/01/2023 7:00 PM CDT Ancillary Procedure [facility] [address] [address] Scan [address] [place] [phone] Belén Arcos MD Leukocytosis, unspecified type (HRC) 10/01/2023 5:40 PM CDT Lab Visit [facility] [address] [place] [phone] Pelvic pain in female 10/01/2023 5:00 PM CDT Office Visit [facility] [address] [place] [address] Belén Arcos MD Pelvic pain in female; Leukocytosis, unspecified type (HRC) 10/01/2023 Telephone [facility] [address] [facility] [address] [place] [phone] Juan Treadwell PA-C RESULTS, TEST 09/29/2023 12:20 PM CDT Office Visit [facility] [address] [facility] [address] [place] [phone] Dejah Ng MD Frequency of urination; Vaginal discharge; Acute cystitis without hematuria 09/22/2023 10:00 AM CDT Telemedicine [facility] [address] [place] [address] Juan Treadwell PA-C Stage 1 hypertension (HRC) (Primary Dx) 09/10/2023 10:10 AM RABBIT DRESSER Ancillary Procedure [facility] [address] [place] [address] from Last 3 Months Immunizations Name Administration Dates Next Due Influenza (Flucelvax), Preserv Free QIV 04/02/20 21 Influenza (Fluzone 0.25, 6-35 mos) 05/06/2013 Influenza IIV4 (Quadrivalent) 0.5mL (43391) 03/2020,05/06/2013 Pfizer Monovalent 12+ Purple Top 07/20/2020,06/06 [...] Sign Reading Time Taken Comments Blood Pressure 126/81 11/13/2023 7:55 AM CDT Pulse 68 11/13/2023 7:55 AM CDT Temperature 36.4 ??C (97.5 ??F) 10/01/2023 4:54 PM CD T Respiratory Rate 20 10/01/2023 4:54 PM CDT Oxygen Saturation 97% 10/01/2023 4:54 PM CDT Inhaled Oxygen Concentration - - Weight 87 kg (191 lb 11.2 oz) 11/13/2023 7:55 AM CDT Height 171.5 cm (5' 7.5) 11/13/2023 7:55 AM CDT Body Mass Index 29.58 11/13/2023 7:55 AM CDT Plan of Treatment Health Maintenance Due Date Last Done Comments HepB (1) 1996 FIT Colon Cancer Screening 2021 COVID-19 Vaccine ( season) 2023 07/20/2020, 07/02/2020 Adult Preventive Visit 06/25/2023 , 02/18/2019, 09/09/2017 Influenza (Season Ended) 2024 021, 03/14/2020, 05/06/2013, Additional history exists Mammogram 09/09/2024 09/10/2023, 05/0 11/2021, 2018, Additional history exists Cervical Cancer Screening 06/25/20252021, 09/09/2017, 10/31/2013, Additional history exists Diabetes Screening- (based on age and BMI) [...] this topic Medical Devices Implanted Type Area Apartment Maintenance Manager Device Identifier Shelf Expiration Date Model / Serial / Lot Sling Advantage Mid-Urethral - [id number] Implanted:Qty: 1 on 02/18/2023 by Jcarlos Larson MD at [facility], [place] DEVICE N/A: VAGINA [place] [employer] 11/23/2025 [id number] / / [id number] Procedures Procedure Name Priority Date/Time Associated Diagnosis Comments TEST (URINE) STAT 11/13/2023 8:25 AM CDT Preop examination COMPLETE BLOOD COUNT-NO DIFF STAT 11/13/2023 8:25 AM CDT Preop examination CT ABD PELVIS W IV CONT STAT [...] BILAT W CAD Routine 09/10/2023 10:13 AM RABBIT DRESSER HGB A1C Routine 02/04/2023 3:08 PM CDT [...] level PAP TEST Routine 06/25/2022 12:59 PM RABBIT DRESSER Screening for malignant neoplasm of cervix from Last 3 Months or Most Recently Relevant to Health Maintenance Results * Complete Blood Count-No Diff (11/13/2023 8:25 AM CDT) WBC 6.2 3.5 - 10.5 x10(9)/L 11/13/2023 8:35 AM CDT [facility] (PN) RBC 4.53 3.90 - 5.03 x10(12)/L 11/13/2023 8:35 AM CDT [facility] (PN) Hemoglobin 13.7 12.0 - 15.5 g/dL 11/13/2023 8:35 AM CDT [facility] (PN) HCT 39.7 34.9 - 44.5 % 11/13/2023 8:35 AM CDT [facility] (PN) MCV 87.6 80.0 - 100.0 fL 11/13/2023 8:35 AM CDT [facility] (PN) MCH 30.2 27.6 - 33.3 pg 11/13/2023 8:35 AM CDT [facility] (PN) MCHC 34.5 31.5 - 35.2 g/dL 11/13/2023 8:35 AM CDT [facility] (PN) RDW 13.1 11.9 - 15.5 % 11/13/2023 8:35 AM CDT [facility] (PN) Platelets 232 150 - 450 x10(9)/L 11/13/2023 8:35 AM CDT [facility] (PN) Blood Venipuncture / Unknown 11/13/2023 8:25 AM CDT 11/13/2023 8:25 AM CDT Juan WALTER-C LAB_1 Performing Organization Address City/[facility]/ZIP Co de Phone Number [facility] (PN) [address] [place] [address], [facility] * Test (Urine) (11/13/2023 8:25 AM CDT) Only the most recent of2 resultswithin the time period is included. HCG, Urine Negative Negative 11/13/2023 8:39 AM CDT [facility] (PN) Urine Non-blood Collection / Unknown 11/13/2023 8:25 AM CDT 11/13/2023 8:25 AM CDT Juan WALTER-C LAB_1 Performing Organization Address City/[facility]/ZIP Co de Phone Number [facility] (PN) [address] [place] [address], [facility] * CT Abd Pelvis W IV Cont [...] Color Straw 10/01/2023 5:59 PM [facility] Urine Clarity Hazy(A) Clear 10/01/2023 5:59 PM [facility] Specific Filion, Urine 1.025 1.005 - 1.030 10/01/2023 5:59 PM [facility] PH Urine 6.0 5.0 - 8.0 10/01/2023 5:59 PM [facility] Protein, Urine Qual (mg/dL) Negative Neg/Trace 10/01/2023 5:59 PM [facility] Glucose Urine Qual (mg/dL) Negative Negative 10/01/2023 5:59 PM [facility] Ketones, Urine (mg/dL) Negative Negative 10/01/2023 5:59 PM [facility] Urobilinogen, Urine (EU/dL) 0.2 <2.0 10/01/2023 5:59 PM [facility] Bilirubin Urine Negative Negative 10/01/2023 5:59 PM [facility] Blood, Urine Negative Neg/Trace 10/01/2023 5:59 PM [facility] Nitrite Urine Negative Negative 10/01/2023 5:59 PM [facility] Leukocyte Est. Moderate(A) Negative 5:59 PM [facility] Red Blood Cells 0-3 0 - 3 /HPF 10/01/2023 5:59 PM [facility] White Blood Cells 21-50(A) 0 - 5 /HPF 10/01/2023 5:59 PM [facility] Bacteria Occasional(A ) None Seen /HPF 10/01/2023 5:59 PM [facility] Squamous Epithelial Cells Few None Seen, Occasional, Few /HPF 10/01/2023 5:59 PM [facility] Mucus Present(A) None Seen /HPF 10/01/2023 5:59 PM T [facility] White Blood Cell Clumps Present(A) None Seen /HPF 10/01/2023 5:59 PM CDT [facility] Urine Source Clean Catch 10/01/2023 5:59 PM [facility] Urine URINE SPECIMEN COLLECTION, CLEAN CATCH / Unknown Non-blood Collection / Unknown 10/01/2023 5:44 PM CDT 10/01/2023 5:44 PM CDT Belén Arcos MD LAB_1 [facility] [address] [place] [address] * (ABNORMAL) Complete Blood Count-W/Diff (10/01/2023 5:37 PM CDT) WBC 13.0(H) 3.5 - 10.5 x10(9)/L 10/01/2023 5:41 PM [facility] RBC 4.80 3.90 - 5.03 x10(12)/L 10/01/2023 5:41 PM [facility] Hemoglobin 14.5 12.0 - 15.5 g/dL 10/01/2023 5:41 PM [facility] HCT 43.0 34.9 - 44.5 % 10/01/2023 5:41 PM [facility] MCV 89.6 80.0 - 100.0 fL 10/01/2023 5:41 PM [facility] MCH 30.2 27.6 - 33.3 pg 10/01/2023 5:41 PM [facility] MCHC 33.7 31.5 - 35.2 g/dL 10/01/2023 5:41 PM [facility] RDW 13.2 11.9 - 15.5 % 10/01/2023 5:41 PM [facility] Platelets 270 150 - 450 x10(9)/L 10/01/2023 5:41 PM [facility] Automated NRBC 0 <=0 /100 WBC 10/01/2023 5:41 PM [facility] Neutrophil Absolute 9.4(H) 1.7 - 7.0 10(9)/L 10/01/2023 5:41 PM T [facility] Lymphocyte Absolute 2.1 1.0 - 4.8 10(9)/L 10/01/2023 5:41 PM [facility] Monocyte Absolute 1.1(H) 0.2 - 0.9 10(9)/L 10/01/2023 5:41 PM T [facility] Eosinophil Absolute 0.2 0.0 - 0.5 10(9)/L 10/01/2023 5:41 PM [facility] Basophil Absolute 0.1 0.0 - 0.3 10(9)/L 10/01/2023 5:41 PM [facility] Immature Granulocyte % 1.5(H) 0.0 - 0.5 % 10/01/2023 5:41 PM [facility] Blood Venipuncture / Unknown 10/01/2023 5:37 PM CDT 10/01/2023 5:39 PM CDT Belén Arcos MD LAB_1 [facility] [address] [place] [address] * (ABNORMAL) Basic Metabolic Panel (10/01/2023 5:37 PM CDT) Sodium 137 136 - 145 mmol/L 10/01/2023 5:58 PM [facility] Potassium 4.4 3.5 - 5.1 mmol/L 10/01/2023 5:58 PM [facility] Chloride 104 98 - 109 mmol/L 10/01/2023 5:58 PM [facility] CO2 25 20 - 29 mmol/L 10/01/2023 5:58 PM [facility] Anion Gap 8 7 - 16 mmol/L 10/01/2023 5:58 PM [facility] Calcium 9.1 8.4 - 10.4 mg/dL 10/01/2023 5:58 PM [facility] BUN 16 7 - 26 mg/dL 10/01/2023 5:58 PM [facility] Creatinine 0.66 0.55 - 1.02 mg/dL 10/01/2023 5:58 PM T [facility] Glucose 113(H) 70 - 100 mg/dL 10/01/2023 5:58 PM T [facility] Comment:The given reference range is for the fasting state. Non-fasting reference range for glucose is 70 - 180 mg/dL. GFR, Estimated >60 >60 mL/min/1.7 3m2 10/01/2023 5:58 PM CDT [facility] Hours Fasting 0.1 8 - 12 Hours 10/01/2023 5:58 PM T [facility] Comment:Lab unable to obtain patient's fasting status at time of specimen collection. Blood Venipuncture / Unknown 10/01/2023 5:37 PM CDT 10/01/2023 5:39 PM CDT Belén Arcos MD LAB_1 Performing Organization Address [facility] Phone Number [facility] [address] * (ABNORMAL) C-Reactive Protein (10/01/2023 5:37 PM CDT) Pathologist [facility] C-Reactive Protein 0.8(H) 0.0 - 0.5 mg/dL 10/01/2023 5:58 PM CDT [facility] Blood Venipuncture / Unknown 10/01/2023 5:37 PM CDT 10/01/2023 5:39 PM CDT Belén Arcos MD LAB_1 Performing Organization Address [facility]/ZIP Co de Phone Number [facility] [address] * Vaginitis Panel (Includes Bacterial Vaginosis, Nette Species, Nette Glabrata and Trichomonas Vaginalis.) (09/29/2023 1:26 PM CDT) Pathologist [facility] Bacterial Vaginosis Negative Negative 09/30/2023 12:55 PM CDT [facility] Nette species Negative Negative 12:55 PM CDT [facility] Nette glabrata Negative Negative 09/30/2023 12:55 PM CDT [facility] Trichomonas vaginalis Negative Negative 09/30/2023 12:55 PM CDT [facility] Swab STD SPECIMEN FROM VAGINA / Unknown Non-blood Collection / Unknown 09/29/2023 1:26 PM CDT 09/29/2023 1:[address] [facility] - 09/30/2023 12:55 PM CDT Test performed by Laminator Hand Mediated Amplification (TMA). Dejah Ng MD LAB_1 Performing Organization Address [facility]/[place] Co de Phone Number [facility] [address] * Chlamydia & GC (14 Years and Older): Vagina (09/29/2023 1:26 PM CDT) Pathologist [facility] Chlamydia Trachomatis STD Not Detected Not Detected 09/30/2023 2:27 PM CDT [facility] N. gonorrhoeae STD Not Detected Not Detected 09/30/2023 2:27 PM CDT [facility] Swab STD SPECIMEN FROM VAGINA / Unknown Non-blood Collection / Unknown 09/29/2023 1:26 PM CDT 09/29/2023 1:[address] [facility] - 09/30/2023 2:27 PM CDT Test performed by Laminator Hand Mediated Amplification (TMA). Dejah Ng MD LAB_1 Performing Organization Address [facility]/[place] Co de Phone Number [facility] [address] * (ABNORMAL) Urine Culture (09/29/2023 12:26 PM CDT) Pathologist [facility] Urine Culture Growth(A) 09/30/2023 4:35 PM CDT [facility] Urine Culture <10,000 CFU/mL Mixed Bacterial Growth 09/30/2023 4:35 PM CDT [facility] Comment: Mixed Bacterial Growth indicates the specimen is likely contaminated at collection with urogenital and/or fecal rosa. The presence of organisms at <10,000 cfu/ml in culture, UTI unlikely. Urine URINE SPECIMEN COLLECTION, CLEAN CATCH / Unknown Non-blood Collection / Unknown 09/29/2023 12:26 PM CDT 09/29/2023 12:45 PM CDT Ryan Leahy [facility] LAB_1 Performing Organization Address City/State/[place] [address], [facility] * (ABNORMAL) Urinalysis Routine, Micro/Culture if Pos: Clean Catch (09/29/2023 12:26 PM CDT) Urine Culture Comment Urinalysis results meet criteria for reflex, culture performed. 09/29/2023 12:45 PM T [facility] Urine Color Yellow 09/29/2023 12:45 PM T [facility] Urine Clarity Clear Clear 09/29/2023 12:45 PM T [facility] Specific Filion, Urine 1.020 1.005 - 1.030 09/29/2023 12:45 PM [facility] PH Urine 7.0 5.0 - 8.0 09/29/2023 12:45 PM [facility] Protein, Urine Qual (mg/dL) Negative Neg/Trace 09/29/2023 12:45 PM [facility] Glucose Urine Qual (mg/dL) Negative Negative 09/29/2023 12:45 PM [facility] Ketones, Urine (mg/dL) Negative Negative 09/29/2023 12:45 PM [facility] Urobilinogen, Urine (EU/dL) 0.2 <2.0 09/29/2023 12:45 PM [facility] Bilirubin Urine Negative Negative 09/29/2023 12:45 PM [facility] Blood, Urine Negative Neg/Trace 09/29/2023 12:45 PM [facility] Nitrite Urine Negative Negative 09/29/2023 12:45 PM [facility] Leukocyte Est. Small(A) Negative 09/29/2023 12:45 PM [facility] Urine Source Clean Catch 09/29/2023 12:45 PM [facility] Urine URINE SPECIMEN COLLECTION, CLEAN CATCH / Unknown Non-blood Collection / Unknown 09/29/2023 12:26 PM CDT 09/29/2023 12:35 PM CDT Ryan Leahy [facility] LAB_1 Performing Organization Address [facility]/[place] Co de Phone Number [facility] [address] [place] [address], [facility] * (ABNORMAL) Urine Microscopic Evaluation: Clean Catch (09/29/2023 12:26 PM CDT) Pathologist [facility] Red Blood Cells 0-3 0 - 3 /HPF 12:45 PM CDT [facility] White Blood Cells 21-50(A) 0 - 5 /HPF 09/29/2023 12:45 PM CDT [facility] Bacteria Few(A) None Seen /HPF 09/29/2023 12:45 PM CDT [facility] Squamous Epithelial Cells Few None Seen, Occasional , Few /HPF 09/29/2023 12:45 PM CDT [facility] Urine URINE SPECIMEN COLLECTION, CLEAN CATCH / Unknown Non-blood Collection / Unknown 09/29/2023 12:26 PM CDT 09/29/2023 12:35 PM CDT Ryan Leahy [facility] LAB_1 Performing Organization Address [facility]/[place] Co de Phone Number [facility] [address] [place] [address] * MM Mammogram Screening Bilat W CAD (09/10/2023 10:13 AM RABBIT DRESSER) Anatomical Region Laterality Modality Breast Bilateral Mammography Impressions 09/10/2023 10:50 AM RABBIT DRESSER : ACR BI-RADS Category 1: Negative RECOMMENDATION: Follow Up Imaging in 12 months - Bilateral The results and recommendations of this examination will be communicated to the patient. Narrative 09/10/2023 10:50 AM RABBIT DRESSER MM MAMMOGRAM SCREENING BILAT W CAD performed [...] 4th Generation (02/04/2023 3:08 PM CDT) Pathologist [facility] HIV 1/2 Antigen/Antib siva (4th generation) Negative (Non Reactive) Negative (Non Reactive) 02/04/2023 8:43 PM CDT [facility] Comment:HIV-1 p24 Antigen an d HIV-1/HIV-2 Antibody not detected Blood Venipuncture / Unknown 02/04/2023 3:08 PM CDT 02/04/2023 3:08 PM CDT Juan Treadwell PA-C LAB_1 [facility] [address] * (ABNORMAL) Lipid Panel and Direct LDL(If Needed) (02/04/2023 3:08 PM CDT) [facility] Cholesterol 181 0 - 199 mg/dL 02/04/2023 6:32 PM T [facility] Triglyceride 197(H) <=149 mg/dL 02/04/2023 6:32 PM T [facility] HDL Cholesterol 47 >=40 mg/dL 02/04/2023 6:32 PM T [facility] LDL, Calculated 95 <130 mg/dL 02/04/2023 6:32 PM T [facility] Non HDL Chol, Calculated 134 <=159 mg/dL 02/04/2023 6:32 PM T [facility] Cholesterol/HDL Ratio 3.9 02/04/2023 6:32 PM T [facility] Hours Fasting Unknown 02/04/2023 6:32 PM CDT [facility] ([facility]) Blood Venipuncture / Unknown 02/04/2023 3:08 PM CDT 02/04/2023 3:08 PM CDT Juan Castillo Mile WALTER-C LAB_1 [facility] [address] [place] [address], [place] [phone] [facility] (PN) [address] [facility] [place] [address], [place] [phone] * Hepatitis C Antibody, with Reflex (02/04/2023 3:08 PM CDT) [facility] Hepatitis C Antibody Negative (Non Reactive) Negative (Non Reactive) 02/04/2023 8:43 PM CDT [facility] Comment:Antibodies to HCV no t detected. Does not exclude the possiblity of exposure to HCV. Blood Venipuncture / Unknown 02/04/2023 3:08 PM CDT 02/04/2023 3:08 PM CDT Juan WALTER-C LAB_1 Performing Organization Address [facility]/ZIP Co de Phone Number [facility] [address] [place], [place] [address] * Hgb A1C (02/04/2023 3:08 PM CDT) [facility] Hemoglobin A1C 5.2 <=5.6 % 02/05/2023 9:32 AM CDT [facility] Estimated Average Glucose (Calc) 103 < 117 mg/dL 02/05/2023 9:32 AM CDT [facility] Comment:Estimated average gl ucose (eAG) converts A1c into glucose units (mg/dL) and estimates average glucose over the past approximately 3 months. The eAG reference interval (<117 mg/dL) corresponds to an A1c of <5.7%. Blood Venipuncture / Unknown 02/04/2023 3:08 PM CDT 02/04/2023 3:08 PM CDT Juan WALTER-[place] LAB_1 Performing Organization Address City/[facility]/ZIP Co de Phone Number [facility] [address] [address], [facility] [phone] * (ABNORMAL) PAP Test (06/25/2022 12:59 PM RABBIT DRESSER) Case Report Pap ? Case: [id number] ? Authorizing Provider: ??Juan Treadwell PA-C ?Collected: ? 06/25/2022 1259 ? Ordering Location: ? [facility] ?Received: ?06/25/2022 1538 ? First Screen: ?Chiara Hudson ? Pathologist: ? Ever Ignacio MD ? Specimen: ?Pap Test, Routine, Cervix/Endocerv ix ? 07/17/2022 8:15 AM RABBIT DRESSER [facility] Pap Specimen Adequacy Satisfactory for evaluation, endocervical/tr ansformation zone component present. 07/17/2022 8:15 AM RABBIT DRESSER [facility] Pap Interpretation (ASC-US) Atypical squamous cells of undetermined significance.(A ) 07/17/2022 8:15 AM RABBIT DRESSER [facility] Pap Disclaimer The Pap test is a screening test designed to aid in the detection of cervical cancer and its precursor lesions. It is not a diagnostic procedure and should not be used as the sole means of detecting cervical cancer. Both false-positive and false-negative results may occur. 07/17/2022 8:15 AM RABBIT DRESSER [facility] Gross Description The specimen is received in SurePath fixative and properly labeled. 1 Pap-stained SurePath slide is prepared. 07/17/2022 8:15 AM RABBIT DRESSER [facility] Embedded Images 8:15 AM RABBIT DRESSER [facility] Other Specimen Type ENTIRE ENDOCERVIX / Unknown 06/25/2022 12:59 PM RABBIT DRESSER 06/25/2022 3:38 PM [facility] Comment:LMP: No LMP recorded . Juan Treadwell PA-C LAB PATHOLOGY [facility] [address] [place] [address], [facility] from Last 3 Months or Most Recently Relevant to Health Maintenance Care Teams Dehydration Unit Operator Relationship Specialty Start Date End Date Juan Treadwell PA-C [address] [place] [address] [facility] - General 11/01/13
--- OUTSIDE RECORDS SUMMARY | 2023-11-24 06:48 | XMS_ITS | Data Portability ---
Author Name Unknown Address [address] [place] [address] Phone [phone] Organization [place] - [facility], [address] Address [address] [facility] [address] [place] [address] Assessment No assessment recorded. Plan of Treatment [...] Encounter Closed Date Diagnosis/Indication Diagnosis SNOMED-CT Code [id number] [address] [place] [address] 06/23/2019 17:14:47 06/23/2019 18:21:44 Health Concerns Section Related Observation LastModified by Organization Detai ls LastModified Time None Recorded Concern Status LastModified by Organization Details LastModified Time None Recorded Advance Directives Directive None Recorded Payers Encounter Date Sequence Insurance Name Policy Number Policy Brown Covered Member ID Brown Member ID Guarantor Name 06/23/2019 1 [employer] [id number] Donal Oliva [id number] Ness Oliva OBGyn Episode No OBEpisode recorded.
--- OUTSIDE RECORDS SUMMARY | 2023-11-24 06:48 | XMS_ITS | Clinical Summary ---
Author Name Unknown Organization [facility] Address [place], [place] [address] Care Team Providers Care Home Based Assistant Name Role Phone Juan Treadwell Primary Care Provider [phone] Allergies No known active allergies Medications Medication [...] PM CDT Emergency [facility] [address] [place] [address] Antonietta Klein PA Bronchitis (Primary Dx) Discharge [...] PA AND LATERAL LOCATION: [facility] DATE: 09/18/2023 INDICATION: Cough COMPARISON: None. Procedure [...] PA AND LATERAL LOCATION: [facility] [place] DATE: 09/18/2023 INDICATION: Cough COMPARISON: None. IMPRESSION: Negative chest. Antonietta Chau GENERAL IM AGING from Last 3 Months Care Teams Home Based Assistant Relationship Specialty Start Date End Date Juan Treadwell PA [address] [place] [address] PCP - General 03/08/21
--- OUTSIDE RECORDS SUMMARY | 2023-11-24 06:48 | XMS_ITS | Encounter Summary ---
Author Name Unknown Organization [facility] Address [address] [place] [address] Care Team Providers Care Director Of Donor Relations Name Role Phone Juan Treadwell PA-C Primary Care Provider [phone] Reason for Visit * Reason Comments Fax Faxed pre op Encounter Details Date Type Department Care Team (Late st Contact Info) Description 11/13/2023 Telephone [facility] [address] [place], [place] [id number] Juan Treadwell PA-C [address] [place], [place] [phone] Fax (Faxed pre op) Social History Tobacco Use Types Packs/Day Years [...] as of this encounter Nursing Notes * Florencia Bejarano LPN - 11/13/2023 10:10 AM CDT Faxed pre op to [facility] at fax # [phone]. documented in this encounter Plan of Treatment Not on file documented as of this encounter Visit Diagnoses Not on filedocumented in this encounter Care Teams Director Of Donor Relations Relationship Specialty Start Date End Date Juan Treadwell PA-C [address], [place] [address] PCP - General 11/01/13 documented as of this encounter
--- OUTSIDE RECORDS SUMMARY | 2023-11-24 06:48 | XMS_ITS | Encounter Summary ---
Author Name Unknown Organization [facility] Address [address] [place] [address] Care Team Providers Care Business Liaison Manager Name Role Phone Juan Treadwell PA-C Primary Care Provider [phone] Encounter Details Date Type Department Care Team (Late st Contact Info) Description 11/13/2023 8:30 AM CDT Lab Visit [facility] [address] [place] [address] Preop examination Social History Tobacco Use Types Packs/Day Years [...] Procedure Name Priority Date/Time Associated Diagnosis Comments COMPLETE BLOOD COUNT-NO DIFF STAT 11/13/2023 8:25 AM CDT Preop examination TEST (URINE) STAT 11/13/2023 8:25 AM CDT Preop examination documented in this encounter Results * Test (Urine) (11/13/2023 8:25 AM CDT) HCG, Urine Negative Negative 11/13/2023 8:39 AM CDT [facility] ([facility]) Urine Non-blood Collection / Unknown 11/13/2023 8:25 AM CDT 11/13/2023 8:25 AM CDT Juan Treadwell PA-C [facility] ([facility]) [address] [place] [address] * Complete Blood Count-No Diff (11/13/2023 8:25 [...] AM CDT 11/13/2023 8:25 AM CDT Juan Treadwell PA-C [facility]) [address] [facility] [place] [address], [facility] documented in this encounter Visit Diagnoses Diagnosis Preop examination Preoperative examination, unspecified documented in this encounter Care Teams Business Liaison Manager Relationship Specialty Start Date End Date Juan Treadwell PA-C [address] [place] [address] PCP - General 11/01/13 documented as of this encounter
--- OUTSIDE RECORDS SUMMARY | 2023-11-24 06:49 | XMS_ITS | Encounter Summary ---
Author Name Unknown Organization [facility] Address [address] [place] [address] Care Team Providers Care Bootmaker Name Role Phone Juan Treadwell PA-C Primary Care Provider [phone] Reason for Visit * Reason Comments PRE-OP EXAM Surgery on 11/24/23 [facility] with Dr. Baumann fax # [phone] Encounter Details Date Type Department Care Team (Late st Contact Info) Description 11/13/2023 8:00 AM CDT Pre-[facility] [address] [facility], [place] [phone] Juan Treadwell PA-C [address] [facility] [place], [place] [phone] Preop examination (Primary Dx); Gallstones; Gastroesophageal reflux disease without esophagitis; Anxiety (HRC) Social History Tobacco Use Types Packs/Day [...] Pulse 68 11/13/2023 7:55 AM CDT Temperature - - Respiratory Rate - - Oxygen Saturation - - Inhaled Oxygen Concentration - - Weight 87 kg (191 lb 11.2 oz) 11/13/2023 7:55 AM CDT Height 171.5 cm (5' 7.5) 11/13/2023 7:55 AM CDT Body Mass Index 29.58 11/13/2023 7:55 AM CDT documented in this encounter Patient Instructions * Patient Instructions* Juan Treadwell PA-C - 11/13/2023 8:00 AM CDT Follow your individualized medication recommendations as described above. In addition, please stop all hatd-wyg-avcrksj medications including aspirin, ibuprofen (Advil, Motrin), naproxen (Aleve, Naprosyn), herbal remedies and supplements one week prior to procedure unless directed otherwise by your care team. You may continue to take acetaminophen (Tylenol) up to the dayof your procedure. Continue all other medications as currently taking. Let your care team know if you have questions. On the day of your procedure, do not wear any hair product including hair sprays and gels and avoidusing body sprays and deodorants/antiperspirants. Bring with you to the site of the procedure: Any oral appliances or CPAP equipment related to sleep apnea Any other health-related equipment or devices you use daily documented in this encounter Progress Notes * Juan Treadwell PA-C - 11/13/2023 8:00 AM CDT Pre-Operative Assessment 11/13/2023 ET Amb PreOp Assessment Details Procedure gallbladder Surgeon Location Other Other Location Name [place] Procedure Date 11/24/2023 Enriqueta Arzola is a 47 y.o. old female here for pre-operative evaluation for procedure noted above. Patient Active Problem List Diagnosis Date Noted Stage 1 hypertension (C) 09/22/2023 Atypical squamous cells of undetermined significance on cytologic smear of cervix (ASC-US) 07/17/2022 Overview Note: [facility] Review: History: 06/2022: ASCUS HPV neg Plan, per ASCCP guidelines: Repeat co-test in 3 years (2024) Anxiety ([facility]) 07/07/2022 Gastroesophageal reflux disease 02/26/2021 Chronic midline thoracic back pain ([facility]) 02/26/2021 Past Medical History: Diagnosis Date History of abnormal Pap smear Past Surgical History: Procedure Laterality Date GYNECOLOGIC CRYOSURGERY INCONTINENCE SURGERY N/A 02/18/2023 TUBAL LIGATION Current Outpatient Medications Medication Instructions melatonin 5 mg, Oral, HS omeprazole (PRILOSEC) 40 MG capsule TAKE 1 CAPSULE BY MOUTH EVERY DAY 1 HOUR BEFORE A MEAL sertraline (ZOLOFT) 150 mg, Oral, DAILY No Known Allergies Social History Occupational History Occupation: [employer] Tobacco Use Smoking status: Former Current packs/day: 0.00 Types: Cigarettes Quit date: 09/09/2006 Years since quittin.1 Smokeless tobacco: Never Vaping Use Vaping status: Never Used Substance and Sexual Activity Alcohol use: Yes Comment: occ. Drug use: No Sexual activity: Yes Partners: Male control/protection: Tubal Ligation No LMP recorded. Family History Problem Relation Age of Onset Cancer, Breast Maternal Grandmother 70 Review of Systems: 11/13/2023 ET Amb PreOp Assessment Sx Have you had a heart attack in the last 30 days? No Have you experienced chest tightening or chest pressure with activity? No Do you wake at night with difficulty breathing? No Do you have swelling in your feet or ankles? No Do you get short of breath if lying flat at night? No Do you hear wheezing or whistling when you breathe? No Have you had a cough, runny nose, or cold symptoms in the last 2 weeks? No Have you tested positive for Covid in the last 6 months? No Do you have a long-standing cough? No Do you snore or are you sleepy during the day? No Do you have any symptoms due to a recent concussion? No Do you or close relatives have bleeding or clotting problems? No Have you taken Aspirin, Ibuprofen (Advil) or Naproxen (Aleve) in the last 7 days? Yes Do you or close relatives have a history of a severe or life-threatening reaction to anesthesia? No Estimated Functional Capacity: Can you climb one flight of stairs, or walk up a gradual uphill without stopping? yes, functional capacity is more than or equal to 4 METS Objective BP 126/81 (BP Location: Left Arm, BP Cuff Size: Large) Pulse 68 Ht 5' 7.5 (1.715 m) Wt 191 lb 11.2 oz (87 kg) BMI 29.58 kg/m?? Physical Exam: General Appearance: alert, well appearing, and in no apparent distress Eyes: lids normal, sclera clear, and conjunctiva normal ENT: oropharynx clear Neck: no lymphadenopathy and no thyromegaly or nodules Heart: regular rate and rhythm and no murmurs, gallops or rubs Lungs: clear to auscultation and no wheezes, rales or rhonchi Extremities: no edema Skin: no rashes or worrisome lesions Neurologic: normal speech and no facial droop Data: Labs: Today: 11/13/2023. Lab Results Component Value Date WBC 6.2 11/13/2023 RBC 4.53 11/13/2023 Hemoglobin 13.7 11/13/2023 HCT 39.7 11/13/2023 MCV 87.6 11/13/2023 RDW 13.1 11/13/2023 Platelets 232 11/13/2023 Lab Results Component Value Date HCG, Urine Negative 11/13/2023 ECG: Not indicated for this procedure. Assessment/Plan Patient is medically optimized for planned procedure(s). ICD-10-CM 1. Preop examination Z01.818 Complete Blood Count-No Diff Test (Urine) 2. Gallstones K80.20 3. Gastroesophageal reflux disease without esophagitis K21.9 4. Anxiety (HRC) F41.9 sertraline (ZOLOFT) 100 MG tablet Special risks: None Medication recommendations: Patient Instructions Follow your individualized medication recommendations as described above. In addition, please stop all tknf-thl-tqxvktx medications including aspirin, ibuprofen (Advil, Motrin), naproxen (Aleve, Naprosyn), herbal remedies and supplements one week prior to procedure unless directed otherwise by your care team. You may continue to take acetaminophen (Tylenol) up to the dayof your procedure. Continue all other medications as currently taking. Let your care team know if you have questions. On the day of your procedure, do not wear any hair product including hair sprays and gels and avoidusing body sprays and deodorants/antiperspirants. Bring with you to the site of the procedure: Any oral appliances or CPAP equipment related to sleep apnea Any other health-related equipment or devices you use daily Electronically signed by: Juan Treadwell PA-C 11/13/2023, 8:04 AM documented in this encounter Plan of Treatment Not on file documented as of this encounter Results * Test (Urine) (11/13/2023 8:25 AM CDT) HCG, Urine Negative Negative 11/13/2023 8:39 AM CDT [facility]) Urine Non-blood Collection / Unknown 11/13/2023 8:25 AM CDT 11/13/2023 8:25 AM CDT Juan Treadwell PA-C [facility] ([facility]) [address] [place] [address], [facility] * Complete Blood Count-No Diff [...] Juan Treadwell PA-C [facility] ([facility]) [address] [address] documented in this encounter Visit Diagnoses Diagnosis Preop examination- Primary Preoperative examination, unspecified Gallstones Calculus of gallbladder without mention of cholecystitis or obstruction Gastroesophageal reflux disease without esophagitis Esophageal reflux Anxiety (HRC) Anxiety state, unspecified documented in this encounter Care Teams Bootmaker Relationship Specialty Start Date End Date Juan Treadwell PA-C [address] [place] [address] PCP - General 11/01/13 documented as of this encounter
--- OUTSIDE RECORDS SUMMARY | 2023-11-24 06:49 | XMS_ITS | Encounter Summary ---
Author Name Unknown Organization [facility] Address [address] [place] [address] Care Team Providers Care Medical Office Coordinator Name Role Phone Juan Treadwell PA-C Primary Care Provider [phone] Reason for Visit * Reason Onset Date Comments BLOOD PRESSURE, HIGH Video Visit 09/22/2023 Encounter Details Date Type Department Care Team (Late st Contact Info) Description 09/22/2023 10:00 AM CDT Telemedicine [facility] [address] [facility] [place], [place] [phone] Juan Treadwell PA-C [address] [place], [place] [address] [address] Stage 1 hypertension (HRC) (Primary [...] to Take Your Blood Pressure at Home (British) * !The DASH Eating Plan: Healthy eating to lower your blood pressure (British) documented in this encounter Progress Notes * [...] 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 documented in this encounter Plan of Treatment Not on file documented as of this encounter Visit Diagnoses Diagnosis Stage 1 hypertension (HRC)- Primary documented in this encounter Care Teams Medical Office Coordinator Relationship Specialty Start Date End Date Juan Treadwell PA-C [facility] [place] [address] PCP - General 11/01/13 documented as of this encounter
--- OUTSIDE RECORDS SUMMARY | 2023-11-24 06:49 | XMS_ITS | Encounter Summary ---
Author Name Unknown Organization [facility] Address [address] [place] [address] Care Team Providers Care Manufacturing Development Engineer Name Role Phone Juan Treadwell PA-C Primary Care Provider [phone] Reason for Visit * Procedure/Equipment (Routine) - Incomplete Specialty Diagnoses / Procedures Referred By Rollyac t Referred To Contact Diagnoses Leukocytosis, unspecified type (HRC) Procedures CT Abd Pelvis W IV Cont CT Abd Pelvis W/WO IV Cont Belén Arcos MD [address] [place] [address] Referral ID Status Reason Start Date Expiration Date V isits Requested Visits Authorized [id number] Incomplete 10/01/2023 12/30/2024 1 1 Encounter Details Date Type Department Care Team (Latest Contact Info) Description 10/01/2023 7:00 PM CDT Ancillary Procedure [facility] [place] [address] [address] Scan [address] [place] [phone] Belén Arcos MD [address] [place] [address] Leukocytosis, unspecified type (HRC) Social [...] mL documented in this encounter Care Teams Manufacturing Development Engineer Relationship Specialty Start Date End Date Juna Treadwell PA-C [address] [place] [address] PCP - General 11/01/13 documented as of this encounter
--- OUTSIDE RECORDS SUMMARY | 2023-11-24 06:49 | XMS_ITS | Encounter Summary ---
Author Name Unknown Organization [facility] Address [address] [place] [address] Care Team Providers Care Planting Material Remover Name Role Phone [facility] Primary Care Provider [facility] Provide r Encounter Details Date Type Department Care Team (Late st Contact Info) Description 07/24/2010 Clinic Report (Satellite Installer) [address] [id number] [place] [address] [facility] [place] [address] Social History Tobacco Use Types [...] form: 'Patient Medication Summary'. Patient Instructions: None INER HELPER documented in this encounter Plan of Treatment Not on file documented as of this encounter Visit Diagnoses Not on filedocumented in this encounter Care Teams Planting Material Remover Relationship Specialty Start Date End Date [facility] PCP - General Family Practice 06/23/19 [facility]02[facility] [address] [place] [address] PCP - General 12/03/22 documented as of this encounter
--- OUTSIDE RECORDS SUMMARY | 2023-11-24 06:49 | XMS_ITS | Encounter Summary ---
Author Name Unknown Organization [facility] Address [address] [place] [address] Care Team Providers Care Pottery Decorator Name Role Phone Juan Treadwell PA-C Primary Care Provider [phone] Reason for Visit * Reason Comments RESULTS, TEST Encounter Details Date Type Department Care Team (Late st Contact Info) Description 10/01/2023 Telephone [facility] [address] [facility] [address] [place] [address] Juan Treadwell PA-C [address] [place] [address] RESULTS, TEST Social History Tobacco [...] All labs have been done 09/28 Primary Aviation Ordnance Officer: Juan Treadwell PA-C Who ordered the test? [...] on filedocumented in this encounter Care Teams Pottery Decorator Relationship Specialty Start Date End Date Juan Treadwell PA-C [address] [place] [address] PCP - General 11/01/13 documented as of this encounter
--- OUTSIDE RECORDS SUMMARY | 2023-11-24 06:49 | XMS_ITS | Encounter Summary ---
Author Name Unknown Organization [facility] Address [address] [place] [address] Care Team Providers Care Green Marketing Analyst Name Role Phone Juan Treadwell PA-C Primary Care Provider Reason for Referral * Consult/Transfer Care (Routine) - New Request Specialty Diagnoses / Procedures Referred By Surjit leiva Referred To Contact Diagnoses Pelvic pain in female Belén Arcos MD [address] [place] [address] Referral ID Status Reason Start Date Expiration Date V isits Requested Visits Authorized [id number] New Request 10/01/2023 12/30/2024 1 1 Scheduling Instructions Your clinician has recommended an appointment with [facility]. You can quickly make your appointment online at [email or web address]. You can also call [phone] for help scheduling your appointment. We suggest you call your health insurance company about your coverage and benefits for this appointment. Question Answer Appointment Urgency? Within 1 Week (Urgent) Consult for Gynecology Reason for visit? New onset pelvic pain history of fibroids and recent bladder sling follow up after pelvic ultrasound in one-week okayed by bath house attendant on-call * Procedure/Equipment (Routine) - Incomplete Specialty Diagnoses / Procedures Referred By Surjit leiva Referred To Contact Diagnoses Pelvic pain in female Procedures US Pelvic Complete W EV Belén Arcos MD [address] [place] [address] Referral ID Status Reason Start Date Expiration Date V isits Requested Visits Authorized [id number] Incomplete 10/01/2023 12/30/2024 1 1 * Procedure/Equipment (Routine) - Incomplete Specialty Diagnoses / Procedures Referred By Contac t Referred To Contact Diagnoses Leukocytosis, unspecified type (HRC) Procedures CT Abd Pelvis W IV Cont CT Abd Pelvis W/WO IV Cont Belén Arcos MD [address] [place] [address] Referral ID Status Reason Start Date Expiration Date V isits Requested Visits Authorized [id number] Incomplete 10/01/2023 12/30/2024 1 1 Reason for Visit * Reason Comments Vaginal Discharge Encounter Details Date Type Department Care Team (Late st Contact Info) Description 10/01/2023 5:00 PM CDT Office Visit [facility] [address] [place] [address] Belén Arcos MD [address] [place] [address] Pelvic pain in female; Leukocytosis, unspecified type [...] tenderness without cervical motion tenderness, discuss with bath house attendant on-call, they felt it was reasonable to treat for possible subclinical BV with pelvic ultrasound and early follow-up next week. Could be due to sloughingof fibroids subclinical PID versus other. She has increased pain fever she should promptly return to urgent care for re-evaluation. documented in this encounter Nursing Notes * Marsha Torres RN - 10/01/2023 5:00 PM CDT Pt seen in [facility] for lower abdominal pain on 09/29/23. [...] Type Priority Associated Diagnoses Orde r Schedule Ob-Animal Science Instructor Consult Referral Routine Pelvic pain in female [...] Urine Negative Negative 10/01/2023 5:52 PM CDT [facility] Urine Non-blood Collection / Unknown 10/01/2023 5:44 PM CDT 10/01/2023 5:48 PM CDT Belén Arcos MD LAB_1 Performing Organization Address City/State/[facility] Co de Phone Number [facility] [address] [place] [address] * (ABNORMAL) UA with Microscopic: Clean Catch (10/01/2023 5:44 PM CDT) Urine Color Straw 10/01/2023 5:59 PM CDT [facility] Urine Clarity Hazy(A) Clear 10/01/2023 5:59 PM T [facility] Specific [place], Urine 1.025 1.005 - 1.030 10/01/2023 5:59 PM [facility] PH Urine 6.0 5.0 - 8.0 10/01/2023 5:59 PM T [facility] Protein, Urine Qual (mg/dL) Negative Neg/Trace 10/01/2023 5:59 PM T [facility] Glucose Urine Qual (mg/dL) Negative Negative 10/01/2023 5:59 PM T [facility] Ketones, Urine (mg/dL) Negative Negative 10/01/2023 5:59 PM T [facility] Urobilinogen, Urine (EU/dL) 0.2 <2.0 10/01/2023 5:59 PM T [facility] Bilirubin Urine Negative Negative 10/01/2023 5:59 PM CDT [facility] Blood, Urine Negative Neg/Trace 10/01/2023 5:59 PM CDT [facility] Nitrite Urine Negative Negative 10/01/2023 5:59 PM CDT [facility] Leukocyte Est. Moderate(A) Negative 5:59 PM CDT [facility] Red Blood Cells 0-3 0 - 3 /HPF 10/01/2023 5:59 PM CDT [facility] White Blood Cells 21-50(A) 0 - 5 /HPF 10/01/2023 5:59 PM T [facility] Bacteria Occasional(A ) None Seen /HPF 10/01/2023 5:59 PM CDT [facility] Squamous Epithelial Cells Few None Seen, Occasional, Few /HPF 10/01/2023 5:59 PM T [facility] Mucus Present(A) None Seen /HPF 10/01/2023 5:59 PM T [facility] White Blood Cell Clumps Present(A) None Seen /HPF 10/01/2023 5:59 PM T [facility] Urine Source Clean Catch 10/01/2023 5:59 PM [facility] Urine URINE SPECIMEN COLLECTION, CLEAN CATCH / Unknown Non-blood Collection / Unknown 10/01/2023 5:44 PM CDT 10/01/2023 5:44 PM CDT Belén Arcos MD LAB_1 Performing Organization Address City/State/[facility] Co de Phone Number [facility] [address] [place] [address] * (ABNORMAL) Basic Metabolic Panel (10/01/2023 5:37 PM CDT) Sodium 137 136 - 145 mmol/L 10/01/2023 5:58 PM CDT [facility] Potassium 4.4 3.5 - 5.1 mmol/L 10/01/2023 5:58 PM CDT [facility] Chloride 104 98 - 109 mmol/L 10/01/2023 5:58 PM CDT [facility] CO2 25 20 - 29 mmol/L 10/01/2023 5:58 PM CDT [facility] Anion Gap 8 7 - 16 mmol/L 10/01/2023 5:58 PM CDT [facility] Calcium 9.1 8.4 - 10.4 mg/dL 10/01/2023 5:58 PM [facility] BUN 16 7 - 26 mg/dL 10/01/2023 5:58 PM T [facility] Creatinine 0.66 0.55 - 1.02 mg/dL 10/01/2023 5:58 PM T [facility] Glucose 113(H) 70 - 100 mg/dL 10/01/2023 5:58 PM [facility] Comment:The given reference range is for the fasting state. Non-fasting reference range for glucose is 70 - 180 mg/dL. GFR, Estimated >60 >60 mL/min/1.7 3m2 10/01/2023 5:58 PM [facility] Hours Fasting 0.1 8 - 12 Hours 10/01/2023 5:58 PM [facility] Comment:Lab unable to obtain patient's fasting status at time of specimen collection. Blood Venipuncture / Unknown 10/01/2023 5:37 PM CDT 10/01/2023 5:39 PM CDT Belén Arcos MD LAB_1 Performing Organization Address [facility] Co de Phone Number [facility] [address] * (ABNORMAL) C-Reactive Protein (10/01/2023 5:37 PM CDT) C-Reactive Protein 0.8(H) 0.0 - 0.5 mg/dL 10/01/2023 5:58 PM T [facility] Blood Venipuncture / Unknown 10/01/2023 5:37 PM CDT 10/01/2023 5:39 PM CDT Belén Arcos MD LAB_1 Performing Organization Address [facility]/ZIP Co de Phone Number [facility] [address] [place] [phone] [place] [address] documented in this encounter Visit Diagnoses Diagnosis Pelvic pain in female Unspecified symptom associated with female genital organs Leukocytosis, unspecified type (HRC) Leukocytosis, unspecified type (HRC) documented in this encounter Care Teams Green Marketing Analyst Relationship Specialty Start Date End Date Juan Treadwell PA-C [address], [place] [address] PCP - General 11/01/13 documented as of this encounter
--- OUTSIDE RECORDS SUMMARY | 2023-11-24 06:49 | XMS_ITS | Clinical Summary ---
Author Name Unknown Organization [facility] Address [address] [place] [address] Care Team Providers Care Ophthalmologist Name Role Phone Clinic, [facility] Primary [...] Comments Blood Pressure 129/86 06/23/2019 6:02 PM STENCIL MACHINE OPERATOR Pulse 60 06/23/2019 6:02 PM STENCIL MACHINE OPERATOR Temperature 37 ??C (98.6 ??F) 06/23/2019 5:31 PM STENCIL MACHINE OPERATOR Respiratory Rate 14 06/23/2019 7:01 PM STENCIL MACHINE OPERATOR Oxygen Saturation 97% 06/23/2019 6:50 PM STENCIL MACHINE OPERATOR Inhaled Oxygen Concentration - - Weight - [...] BASIC METABOLIC PANEL STAT 06/23/2019 6:09 PM STENCIL MACHINE OPERATOR PAP LB RFX HPV ASCU ([facility]) Routine 09/11/2011 8:52 PM STENCIL MACHINE OPERATOR HCV ANTIBODY ([facility]) Routine 07/24/2010 1:45 PM STENCIL MACHINE OPERATOR from Last 3 Months or Most Recently Relevant to Health Maintenance Results * (ABNORMAL) Basic metabolic panel (BMP) (06/23/2019 6:09 PM STENCIL MACHINE OPERATOR) Sodium 141 133 - 144 mmol/L 06/23/2019 6:27 PM [facility] Potassium 3.2(L) 3.4 - 5.3 mmol/L 06/23/2019 6:27 PM [facility] Chloride 108 94 - 109 mmol/L 06/23/2019 6:27 PM [facility] Carbon Dioxide 26 20 - 32 mmol/L 06/23/2019 6:33 PM [facility] Anion Gap 7 3 - 14 mmol/L 06/23/2019 6:33 PM [facility] Glucose 105(H) 70 - 99 mg/dL 06/23/2019 6:33 PM STENCIL MACHINE OPERATOR [facility] Urea Nitrogen 20 7 - 30 mg/dL 06/23/2019 6:33 PM [facility] Creatinine 0.66 0.52 - 1.04 mg/dL 06/23/2019 6:33 PM [facility] GFR Estimate >90 >60 mL/min/{1. 73_m2} 06/23/2019 6:33 PM STENCIL MACHINE OPERATOR [facility] Comment: Non GFR Calc Starting 06/22/2018, serum creatinine based estimated GFR (eGFR) will be calculated using the Chronic Kidney Disease Epidemiology Collaboration (CKD-EPI) equation. GFR Estimate If Black >90 >60 mL/min/{1. 73_m2} 06/23/2019 6:33 PM [facility] Comment: GFR Calc Starting 06/22/2018, serum creatinine based estimated GFR (eGFR) will be calculated using the Chronic Kidney Disease Epidemiology Collaboration (CKD-EPI) equation. Calcium 8.8 8.5 - 10.1 mg/dL 06/23/2019 6:33 PM [facility] Blood specimen (specimen) 06/23/2019 6:09 PM STENCIL MACHINE OPERATOR 06/23/2019 6:16 PM STENCIL MACHINE OPERATOR Arvind Larose MD LAB - BLOOD ORDER BILL [facility] [address] [place] [address], [facility] [phone] * Pap Lb rfx HPV ASCU ([facility]) (09/11/2011 8:52 PM STENCIL MACHINE OPERATOR) DIAGNOSIS: Comment [facility] HISTORICAL RESULTS Comment: NEGATIVE FOR INTRAEPITHELIAL LESION AND MALIGNANCY. ?? THIS SPECIMEN WAS RESCREENED PART OF OUR PLASTIC CNC MACHINE OPERATOR PROGRAM. ?? Specimen adequacy: Comment B HISTORICAL RESULTS Comment: Satisfactory for evaluation. ??Endocervical and/or squamous metaplastic ?? cells (endocervical component) are present. ?? Performed by: Comment [facility] HISTORICAL RESULTS QC reviewed by: Comment [facility] HISTORICAL RESULTS Comment: Ezequiel Headley, Disk Sharpener (ASCP) ?? . 0 [facility] HISTORICAL RESULTS Note: Comment [facility] HISTORICAL RESULTS Comment: The Pap smear is a screening test designed to aid in the detection of ?? premalignant and malignant conditions of the uterine cervix. ??It is not a ?? diagnostic procedure and should not be used as the sole means of detecting ?? cervical cancer. ??Both false-positive and false-negative reports do occur. ?? . ?? . Comment [facility] HISTORICAL RESULTS Comment: The HPV DNA reflex criteria were not met with this specimen result ?? therefore, no HPV testing was performed. ?? . ?? 09/11/2011 8:52 PM STENCIL MACHINE OPERATOR 09/17/2011 8:19 PM CDT Madie Murray MD LAB - [facility] Performing Organization Address [facility] Co de Phone Number [facility] HISTORICAL RESULTS * HCV Antibody ([facility]) (07/24/2010 1:45 PM STENCIL MACHINE OPERATOR) Hep C Virus Ab <0.1 0.0 - 0.9 s/co ratio [facility] HISTORICAL RESULTS Comment: Negative: ? < 0.8 ?? Indeterminate 0.8 - 0.9 ?? Positive: ? > 0.9 ?? . ?? In order to reduce the incidence of a false positive ?? result, the CDC recommends that all s/co ratios ?? between 1.0 and 10.9 be confirmed with additional ?? RIBA or PCR testing. ?? 07/24/2010 1:45 PM STENCIL MACHINE OPERATOR 07/26/2010 12:14 AM STENCIL MACHINE OPERATOR Rupinder Hanson DO LAB - [facility] Performing Organization Address City/[facility] Co de Phone Number [facility] HISTORICAL RESULTS from Last 3 Months or Most Recently Relevant to Health Maintenance Care Teams Ophthalmologist Relationship Specialty Start Date End Date Clinic, [facility] [address] [place] [address] PCP - General 12/03/22
--- OUTSIDE RECORDS SUMMARY | 2023-11-24 06:49 | XMS_ITS | Encounter Summary ---
Author Name Unknown Organization [facility] Address [address] [place] [address] Care Team Providers Care Hazard Waste Handler Name Role Phone Juan Treadwell PA-C Primary Care Provider [phone] Reason for Visit * Reason Comments Vaginal Discharge Encounter Details Date Type Department Care Team (Late st Contact Info) Description 09/29/2023 12:20 PM CDT Office Visit [facility] [address] [place] [address] Dejah Ng MD [address] [place] [address] Frequency of urination; Vaginal discharge; [...] Everywhere. * UTI (Urinary Tract Infection): Female (Tamazight) documented in this encounter Progress Notes * Dejah Ng MD - 09/29/2023 12:20 PM CDT [facility] Patient: Ness Oliva Date of : 1975 (47 y.o.) Subjective Nursing Notes: Gera Gremain LPN 09/29/23 1224 Signed Ness Oliva is [...] Color Yellow Urine Clarity Clear Clear Specific [place], Urine 1.020 1.005 - 1.030 PH Urine [...] Detected Not Detected 09/30/2023 2:27 PM CDT [facility] N. gonorrhoeae STD Not Detected Not Detected 09/30/2023 2:27 PM CDT [facility] Swab STD SPECIMEN FROM VAGINA / Unknown Non-blood Collection / Unknown 09/29/2023 1:26 PM CDT 09/29/2023 1:29 PM CDT [facility] - 09/30/2023 2:27 PM CDT Test performed by Outsole Caser Mediated Amplification (TMA). Dejah Ng MD LAB_1 Performing Organization Address [facility]/ZIP Co de Phone Number [facility] [address] * Vaginitis Panel (Includes Bacterial Vaginosis, Nette Species, Nette Glabrata and Trichomonas Vaginalis.) (09/29/2023 1:26 PM CDT) Bacterial Vaginosis Negative Negative 09/30/2023 12:55 PM CDT [facility] Nette species Negative Negative 12:55 PM CDT [facility] Nette glabrata Negative Negative 09/30/2023 12:55 PM CDT [facility] Trichomonas vaginalis Negative Negative 09/30/2023 12:55 PM CDT [facility] Swab STD SPECIMEN FROM VAGINA / Unknown Non-blood Collection / Unknown 09/29/2023 1:26 PM CDT 09/29/2023 1:29 PM CDT Narrative [facility] - 09/30/2023 12:55 PM CDT Test performed by Outsole Caser Mediated Amplification (TMA). Dejah Ng MD LAB_1 Performing Organization Address [facility] Co de Phone Number [facility] [address] * (ABNORMAL) Urine Culture (09/29/2023 12:26 PM CDT) Pathologist [facility] Urine Culture Growth(A) 09/30/2023 4:[address] [facility] Urine Culture <10,000 CFU/mL Mixed Bacterial Growth 09/30/2023 4:[address] [facility] Comment: Mixed Bacterial Growth indicates the specimen is likely contaminated at collection with urogenital and/or fecal rosa. The presence of organisms at <10,000 cfu/ml in culture, UTI unlikely. Urine URINE SPECIMEN COLLECTION, CLEAN CATCH / Unknown Non-blood Collection / Unknown 09/29/2023 12:26 PM CDT 09/29/2023 12:45 PM CDT Ryan [facility] LAB_1 Performing Organization Address City/[facility]/ZIP Co de Phone Number [address] [address], [facility] * (ABNORMAL) Urine Microscopic Evaluation: Clean Catch (09/29/2023 12:26 PM CDT) Red Blood Cells 0-3 0 - 3 /HPF 12:45 PM CDT [facility] White Blood Cells 21-50(A) 0 - 5 /HPF 09/29/2023 12:45 PM CDT [facility] Bacteria Few(A) None Seen /HPF 09/29/2023 12:45 PM CDT [facility] Squamous Epithelial Cells Few None Seen, Occasional , Few /HPF 09/29/2023 12:45 PM CDT [facility] Urine URINE SPECIMEN COLLECTION, CLEAN CATCH / Unknown Non-blood Collection / Unknown 09/29/2023 12:26 PM CDT 09/29/2023 12:35 PM CDT Ryan Leahy [facility] LAB_1 Performing Organization Address [facility] Co de Phone Number [facility] [address] [place] [address] * (ABNORMAL) Urinalysis Routine, Micro/Culture if Pos: Clean Catch (09/29/2023 12:26 PM CDT) Pathologist [facility] Urine Culture Comment Urinalysis results meet criteria for reflex, culture performed. 09/29/2023 12:45 PM CDT [facility] Urine Color Yellow 09/29/2023 12:45 PM CDT [facility] Urine Clarity Clear Clear 09/29/2023 12:45 PM CDT [facility] Specific [place], Urine 1.020 1.005 - 1.030 09/29/2023 12:45 PM CDT [facility] PH Urine 7.0 5.0 - 8.0 09/29/2023 12:45 PM CDT [facility] Protein, Urine Qual (mg/dL) Negative Neg/Trace 09/29/2023 12:45 PM CDT [facility] Glucose Urine Qual (mg/dL) Negative Negative 09/29/2023 12:45 PM CDT [facility] Ketones, Urine (mg/dL) Negative Negative 09/29/2023 12:45 PM CDT [facility] Urobilinogen, Urine (EU/dL) 0.2 <2.0 09/29/2023 12:45 PM CDT [facility] Bilirubin Urine Negative Negative 09/29/2023 12:45 PM CDT [facility] Blood, Urine Negative Neg/Trace 09/29/2023 12:45 PM CDT [facility] Nitrite Urine Negative Negative 09/29/2023 12:45 PM CDT [facility] Leukocyte Est. Small(A) Negative 09/29/2023 12:45 PM CDT [facility] Urine Source Clean Catch 09/29/2023 12:45 PM CDT [facility] Urine URINE SPECIMEN COLLECTION, CLEAN CATCH / Unknown Non-blood Collection / Unknown 09/29/2023 12:26 PM CDT 09/29/2023 12:35 PM CDT Ryan [facility] LAB_1 Performing Organization Address City/State/[facility] Co de Phone Number [facility] [address] [place] [address] documented in this encounter Visit Diagnoses Diagnosis Frequency of urination Urinary frequency Vaginal discharge Leukorrhea, not specified as infective Acute cystitis without hematuria Acute cystitis documented in this encounter Care Teams Hazard Waste Handler Relationship Specialty Start Date End Date Juan Treadwell PA-C [address] [place] [address] PCP - General 11/01/13 documented as of this encounter
--- OUTSIDE RECORDS SUMMARY | 2023-11-24 06:49 | XMS_ITS | Encounter Summary ---
Author Name Unknown Organization [facility] Address [address] [place] [address] Care Team Providers Care Folded Towel Machine Operator Name Role Phone [place] Bishop Primary Care Provider Samia kyalicia [facility], Kirstin [facility] Primary Care Provide r Encounter Details Date Type Department Care Team (Late st Contact Info) Description 01/25/2010 Clinic Report (Inductor Tester) [address] [phone] Madie Murray MD NO INFO AVAILABLE 09/17/2022 [...] on filedocumented in this encounter Care Teams Folded Towel Machine Operator Relationship Specialty Start Date End Date [place] Bishop PCP - General Family Practice 06/23/19 [facility]02[facility]22 [facility] [address] [place] [address] PCP - General 12/03/22 documented as of this encounter
--- OUTSIDE RECORDS SUMMARY | 2023-11-24 06:49 | XMS_ITS | Encounter Summary ---
Author Name Unknown Organization [facility] Address [address] [place] [address] Care Team Providers Care Vp Security Name Role Phone [place] Bishop Primary Care Provider Samia utalicia [facility], Kirstin [facility] Primary Care Provide r Encounter Details Date Type Department Care Team (Late st Contact Info) Description 09/11/2011 Clinic Report (Pasteurizer) [address] [phone] Madie Murray MD NO INFO AVAILABLE 09/17/2022 [...] 14 years from the [place]eteria of the [facility] [place] She presented for well woman exam ([age] [...] on filedocumented in this encounter Care Teams Vp Security Relationship Specialty Start Date End Date [place] Bishop PCP - General Family Practice 06/23/19 12/02/22 [facility], Kirstin [facility] [place] [address] PCP - General 12/03/22 documented as of this encounter
--- OUTSIDE RECORDS SUMMARY | 2023-11-24 06:49 | XMS_ITS | Encounter Summary ---
Author Name Unknown Organization [facility] Address [address] [place] [address] Care Team Providers Care Court Transcriber Name Role Phone [place] Bishop Primary Care [facility] Primary Care Provide r Encounter Details Date Type Department Care Team (Late st Contact Info) Description 04/22/2007 Clinic Report (Facility Assistant) [address] [phone] Madie Murray MD NO INFO AVAILABLE 09/17/2022 [...] on filedocumented in this encounter Care Teams Court Transcriber Relationship Specialty Start Date End Date [place] Bishop PCP - General Family Practice 06/23/19 12/02/22 Clinic, Kirstin [facility] [address] [place] [address] PCP - General 12/03/22 documented as of this encounter
--- OUTSIDE RECORDS SUMMARY | 2023-11-24 06:49 | XMS_ITS | Encounter Summary ---
Author Name Unknown Organization [facility] Address [address] [place] [address] Care Team Providers Care Global Sales Executive Name Role Phone [place] Bishop Primary Care Provider Samia [facility]ero [facility] Provide r Encounter Details Date Type Department Care Team (Late st Contact Info) Description 06/13/2011 Clinic Report (Hr Receptionist) [address] [phone] [place] [address] [facility] [address] [place], [place] [phone] Social History Tobacco Use Types Packs/Day Years [...] and wishes to proceed. Patient Instructions: None TING MINER documented in this encounter Plan of Treatment Not on file documented as of this encounter Visit Diagnoses Not on filedocumented in this encounter Care Teams Global Sales Executive Relationship Specialty Start Date End Date [place] Bishop PCP - General Family Practice 06/23/19 12/02/22 [facility] [address] [place] [address] PCP - General 12/03/22 documented as of this encounter
--- OUTSIDE RECORDS SUMMARY | 2023-11-24 06:49 | XMS_ITS | Encounter Summary ---
Author Name Unknown Organization [facility] Address [address] [place] [address] Care Team Providers Care Order Puller Name Role Phone Juan Treadwell PA-C Primary Care Provider Reason for Referral * Procedure/Equipment (Routine) - Incomplete Specialty Diagnoses / Procedures Referred By Surjit leiva Referred To Contact Procedures MM Mammogram Screening Juan Cloud PA-C [address] [place] [address] Referral ID Status Reason Start Date Expiration Date V isits Requested Visits Authorized [id number] Incomplete 09/10/2023 12/09/2024 1 1 OMER ENGAGEMENT MANAGER Reason for Visit * Procedure/Equipment (Routine) - Incomplete Specialty Diagnoses / Procedures Referred By Surjit leiva Referred To Contact Procedures MM Mammogram Screening uJan Cloud PA-C [address] [place] [address] Referral ID Status Reason Start Date Expiration Date V isits Requested Visits Authorized [id number] Incomplete 09/10/2023 12/09/2024 1 1 Encounter Details Date Type Department Care Team ([facility] st Contact Info) Description 09/10/2023 10:10 AM CUSTOMER ENGAGEMENT MANAGER Ancillary Procedure [facility] [address] [place] [address] Social History Tobacco Use Types Packs/Day Years [...] BILAT W CAD Routine 09/10/2023 10:13 AM CUSTOMER ENGAGEMENT MANAGER documented in this encounter Results * MM Mammogram Screening Bilat W CAD (09/10/2023 10:13 AM CUSTOMER ENGAGEMENT MANAGER) Anatomical Region Laterality Modality Breast Bilateral Mammography Impressions 09/10/2023 10:50 AM CUSTOMER ENGAGEMENT MANAGER : ACR BI-RADS Category 1: Negative RECOMMENDATION: Follow Up Imaging in 12 months - Bilateral The results and recommendations of this examination will be communicated to the patient. Narrative 09/10/2023 10:50 AM CUSTOMER ENGAGEMENT MANAGER MM MAMMOGRAM SCREENING BILAT W CAD performed [...] on filedocumented in this encounter Care Teams Order Puller Relationship Specialty Start Date End Date Juan Treadwell PA-C [address] [place] [address] PCP - General 11/01/13 documented as of this encounter
--- OUTSIDE RECORDS SUMMARY | 2023-11-24 06:49 | XMS_ITS | Referral Summary ---
Author Name Unknown Organization [facility] Address [address] [place] [id number] Care Team Providers Care High School Music Instructor Name Role Phone Clinic, [facility] Primary [...] Comments Blood Pressure 129/86 06/23/2019 6:02 PM P D DRIVER Pulse 60 06/23/2019 6:02 PM P D DRIVER Temperature 37 ??C (98.6 ??F) 06/23/2019 5:31 PM P D DRIVER Respiratory Rate 14 06/23/2019 7:01 PM P D DRIVER Oxygen Saturation 97% 06/23/2019 6:50 PM P D DRIVER Inhaled Oxygen Concentration - - Weight - - Height - - Body Mass Index - - Plan of Treatment Not on file Procedures Procedure Name Priority Date/Time Associated Diagnosis Comments BASIC METABOLIC PANEL STAT 06/23/2019 6:09 PM P D DRIVER PAP LB RFX HPV ASCU ([facility]) Routine 09/11/2011 8:52 PM P D DRIVER HCV ANTIBODY ([facility]) Routine 07/24/2010 1:45 PM P D DRIVER from Last 3 Months or Most Recently Relevant to Health Maintenance Results * (ABNORMAL) Basic metabolic panel (BMP) (06/23/2019 6:09 PM P D DRIVER) Sodium 141 133 - 144 mmol/L 06/23/2019 6:27 PM [facility] Potassium 3.2(L) 3.4 - 5.3 mmol/L 06/23/2019 6:27 PM [facility] Chloride 108 94 - 109 mmol/L 06/23/2019 6:27 PM [facility] Carbon Dioxide 26 20 - 32 mmol/L 06/23/2019 6:33 PM [facility] Anion Gap 7 3 - 14 mmol/L 06/23/2019 6:33 PM [facility] Glucose 105(H) 70 - 99 mg/dL 06/23/2019 6:33 PM [facility] Urea Nitrogen 20 7 - 30 mg/dL 06/23/2019 6:33 PM [facility] Creatinine 0.66 0.52 - 1.04 mg/dL 06/23/2019 6:33 PM [facility] GFR Estimate >90 >60 mL/min/{1. 73_m2} 06/23/2019 6:33 PM [facility] Comment: Non GFR Calc Starting 06/22/2018, serum creatinine based estimated GFR (eGFR) will be calculated using the Chronic Kidney Disease Epidemiology Collaboration (CKD-EPI) equation. GFR Estimate If Black >90 >60 mL/min/{1. 73_m2} 06/23/2019 6:33 PM [facility] Comment: GFR Calc Starting 06/22/2018, serum creatinine based estimated GFR (eGFR) will be calculated using the Chronic Kidney Disease Epidemiology Collaboration (CKD-EPI) equation. Calcium 8.8 8.5 - 10.1 mg/dL 06/23/2019 6:33 PM [facility] Blood specimen (specimen) 06/23/2019 6:09 PM P D DRIVER 06/23/2019 6:16 PM P D DRIVER Arvind Larose MD LAB - BLOOD ORDER BILL [facility] Alyssa E Magalis Abdullahi [place] [id number], [facility] [phone] * Pap Lb rfx HPV ASCU ([facility]) (09/11/2011 8:52 PM P D DRIVER) DIAGNOSIS: Comment [facility] HISTORICAL RESULTS Comment: NEGATIVE FOR INTRAEPITHELIAL LESION AND MALIGNANCY. ?? THIS SPECIMEN WAS RESCREENED PART OF OUR POWER SAW MECHANIC PROGRAM. ?? Specimen adequacy: Comment B HISTORICAL RESULTS Comment: Satisfactory for evaluation. ??Endocervical and/or squamous metaplastic ?? cells (endocervical component) are present. ?? Performed by: Comment [facility] HISTORICAL RESULTS QC reviewed by: Comment [facility] HISTORICAL RESULTS Comment: Ezequiel Headley, Superintendent Pressure [facility] ?? . 0 [facility] HISTORICAL RESULTS Note: Comment [facility] HISTORICAL RESULTS Comment: The Pap smear is a screening test designed to aid in the detection of ?? premalignant and malignant conditions of the uterine cervix. ??It is not a ?? diagnostic procedure and should not be used as the sole means of detecting ?? cervical cancer. ??Both false-positive and false-negative reports do occur. ?? . ?? . Comment [facility] HISTORICAL RESULTS Comment: The HPV DNA reflex criteria were not met with this specimen result ?? therefore, no HPV testing was performed. ?? . ?? 09/11/2011 8:52 PM P D DRIVER 09/17/2011 8:19 PM CDT Madie Murray MD LAB - [facility] HISTORICAL RESULTS * HCV Antibody ([facility]) (07/24/2010 1:45 PM P D DRIVER) Pathologist [facility] Hep C Virus Ab <0.1 0.0 - 0.9 s/co ratio [facility] HISTORICAL RESULTS Comment: Negative: ? < 0.8 ?? Indeterminate 0.8 - 0.9 ?? Positive: ? > 0.9 ?? . ?? In order to reduce the incidence of a false positive ?? result, the CDC recommends that all s/co ratios ?? between 1.0 and 10.9 be confirmed with additional ?? RIBA or PCR testing. ?? 07/24/2010 1:45 PM P D DRIVER 07/26/2010 12:14 AM P D DRIVER Rupinder Hanson DO LAB - [facility] HISTORICAL RESULTS from Last 3 Months or Most Recently Relevant to Health Maintenance Care Teams High School Music Instructor Relationship Specialty Start Date End Date Clinic, [facility]irstin [facility]ons [facility] [place] [address] PCP - General 12/03/22
--- OUTSIDE RECORDS SUMMARY | 2023-11-24 06:49 | XMS_ITS | Encounter Summary ---
Author Name Unknown Organization [facility] Address [address] [place] [address] Care Team Providers Care Auto Technician Mechanic Name Role Phone Juan Treadwell PA-C Primary Care Provider [phone] Encounter Details Date Type Department Care Team (Late st Contact Info) Description 10/01/2023 5:40 PM CDT Lab Visit [facility] [address] [place] [address] Pelvic pain in female Social [...] Urine Negative Negative 10/01/2023 5:52 PM CDT [facility] Urine Non-blood Collection / Unknown 10/01/2023 5:44 PM CDT 10/01/2023 5:48 PM CDT Belén Arcos MD LAB_1 [facility] [address] [place] [address] * (ABNORMAL) UA with Microscopic: Clean Catch (10/01/2023 5:44 PM CDT) Urine Color Straw 10/01/2023 5:59 PM CDT [facility] Urine Clarity Hazy(A) Clear 10/01/2023 5:59 PM CDT [facility] Specific [place], Urine 1.025 1.005 - 1.030 10/01/2023 5:59 PM CDT [facility] PH Urine 6.0 5.0 - 8.0 10/01/2023 5:59 PM CDT [facility] Protein, Urine Qual (mg/dL) Negative Neg/Trace 10/01/2023 5:59 PM CDT [facility] Glucose Urine Qual (mg/dL) Negative Negative 10/01/2023 5:59 PM CDT [facility] Ketones, Urine (mg/dL) Negative Negative 10/01/2023 5:59 PM CDT [facility] Urobilinogen, Urine (EU/dL) 0.2 <2.0 10/01/2023 5:59 PM CDT [facility] Bilirubin Urine Negative Negative 10/01/2023 5:59 PM CDT [facility] Blood, Urine Negative Neg/Trace 10/01/2023 5:59 PM CDT [facility] Nitrite Urine Negative Negative 10/01/2023 5:59 PM CDT [facility] Leukocyte Est. Moderate(A) Negative 5:59 PM CDT [facility] Red Blood Cells 0-3 0 - 3 /HPF 10/01/2023 5:59 PM CDT [facility] White Blood Cells 21-50(A) 0 - 5 /HPF 10/01/2023 5:59 PM CDT [facility] Bacteria Occasional(A ) None Seen /HPF 10/01/2023 5:59 PM CDT [facility] Squamous Epithelial Cells Few None Seen, Occasional, Few /HPF 10/01/2023 5:59 PM CDT [facility] Mucus Present(A) None Seen /HPF 10/01/2023 5:59 PM CDT [facility] White Blood Cell Clumps Present(A) None Seen /HPF 10/01/2023 5:59 PM CDT [facility] Urine Source Clean Catch 10/01/2023 5:59 PM CDT [facility] Urine URINE SPECIMEN COLLECTION, CLEAN CATCH / Unknown Non-blood Collection / Unknown 10/01/2023 5:44 PM CDT 10/01/2023 5:44 PM CDT Belén Arcos MD LAB_1 [facility] [address] [place] [address] * (ABNORMAL) Complete Blood Count-W/Diff (10/01/2023 5:37 PM CDT) WBC 13.0(H) 3.5 - 10.5 x10(9)/L 10/01/2023 5:41 PM [facility] RBC 4.80 3.90 - 5.03 x10(12)/L 10/01/2023 5:41 PM [facility] Hemoglobin 14.5 12.0 - 15.5 g/dL 10/01/2023 5:41 PM [facility] HCT 43.0 34.9 - 44.5 % 10/01/2023 5:41 PM [facility] MCV 89.6 80.0 - 100.0 fL 10/01/2023 5:41 PM [facility] MCH 30.2 27.6 - 33.3 pg 10/01/2023 5:41 PM [facility] MCHC 33.7 31.5 - 35.2 g/dL 10/01/2023 5:41 PM [facility] RDW 13.2 11.9 - 15.5 % 10/01/2023 5:41 PM [facility] Platelets 270 150 - 450 x10(9)/L 10/01/2023 5:41 PM [facility] Automated NRBC 0 <=0 /100 WBC 10/01/2023 5:41 PM [facility] Neutrophil Absolute 9.4(H) 1.7 - 7.0 10(9)/L 10/01/2023 5:41 PM [facility] Lymphocyte Absolute 2.1 1.0 - 4.8 10(9)/L 10/01/2023 5:41 PM [facility] Monocyte Absolute 1.1(H) 0.2 - 0.9 10(9)/L 10/01/2023 5:41 PM [facility] Eosinophil Absolute 0.2 0.0 - 0.5 10(9)/L 10/01/2023 5:41 PM [facility] Basophil Absolute 0.1 0.0 - 0.3 10(9)/L 10/01/2023 5:41 PM [facility] Immature Granulocyte % 1.5(H) 0.0 - 0.5 % 10/01/2023 5:41 PM [facility] Blood Venipuncture / Unknown 10/01/2023 5:37 PM CDT 10/01/2023 5:39 PM CDT Belén Arcos MD LAB_1 Performing Organization Address [facility] Co de Phone Number [facility] [address] [place] [address] * (ABNORMAL) Basic Metabolic Panel (10/01/2023 5:37 PM CDT) Pathologist [facility] Sodium 137 136 - 145 mmol/L 10/01/2023 5:58 PM [facility] Potassium 4.4 3.5 - 5.1 mmol/L 10/01/2023 5:58 PM [facility] Chloride 104 98 - 109 mmol/L 10/01/2023 5:58 PM [facility] CO2 25 20 - 29 mmol/L 10/01/2023 5:58 PM [facility] Anion Gap 8 7 - 16 mmol/L 10/01/2023 5:58 PM [facility] Calcium 9.1 8.4 - 10.4 mg/dL 10/01/2023 5:58 PM [facility] BUN 16 7 - 26 mg/dL 10/01/2023 5:58 PM [facility] Creatinine 0.66 0.55 - 1.02 mg/dL 10/01/2023 5:58 PM [facility] Glucose 113(H) 70 - 100 mg/dL 10/01/2023 5:58 PM [facility] Comment:The given reference range is for the fasting state. Non-fasting reference range for glucose is 70 - 180 mg/dL. GFR, Estimated >60 >60 mL/min/1.7 3m2 10/01/2023 5:58 PM [facility] Hours Fasting 0.1 8 - 12 Hours 10/01/2023 5:58 PM [facility] Comment:Lab unable to obtain patient's fasting status at time of specimen collection. Blood Venipuncture / Unknown 10/01/2023 5:37 PM CDT 10/01/2023 5:39 PM CDT Belén Arcos MD LAB_1 Performing Organization Address [facility]/State/ZIP Co de Phone Number [facility] [address] [place] [address] * (ABNORMAL) C-Reactive Protein (10/01/2023 5:37 PM CDT) C-Reactive Protein 0.8(H) 0.0 - 0.5 mg/dL 10/01/2023 5:58 PM CDT [facility] Blood Venipuncture / Unknown 10/01/2023 5:37 PM CDT 10/01/2023 5:39 PM CDT Belén Arcos MD LAB_1 [facility] [address] [place] [address] documented in this encounter Visit Diagnoses Diagnosis Pelvic pain in female Unspecified symptom associated with female genital organs documented in this encounter Care Teams Auto Technician Mechanic Relationship Specialty Start Date End Date Juan Treadwell PA-C [facility] [place] [address] PCP - General 11/01/13 documented as of this encounter
[2023-11-24 07:12] LABS: Ur HCG Qualitative* Negative (Negative)
[2023-11-24] MEDS: SODIUM CHLORIDE 0.9 % (FLUSH) 10 ML SYRINGE IVF ×2 (07:20→10:52)
[2023-11-24] MEDS: LACTATED RINGERS 1000 ML 1,000 ML 100 ML IV (07:20)
--- NOTE | 2023-11-24 08:05 | W.PM.H&PU ---
History & Physical Update History & Physical Update H&P Reviewed and patient assessed: No changes noted
[2023-11-24] MEDS: CEFAZOLIN 2 GM INJ IVP (08:30)
--- NOTE | 2023-11-24 08:52 | W.ANESCHARGE ---
Anesthesia Charges Start Date/Time Anesthesia Start Date: 11/24/23 Anesthesia Start Time: 08:20 Stop Date/Time Anesthesia Stop Date: 11/24/23 Anesthesia Stop Time: 09:55
[2023-11-24] MEDS: BUPIVACAINE 0.25% 30 ML INJECTION (09:30)
[2023-11-24] MEDS: fentaNYL 100 MCG/2 ML inj 50 MCG IVP ×2 (09:55→10:02)
--- NOTE | 2023-11-24 09:59 | W.ANESCHARGE ---
Anesthesia Charges Start Date/Time Anesthesia Start Date: 11/24/23 Anesthesia Start Time: 08:20 Stop Date/Time Anesthesia Stop Date: 11/24/23 Anesthesia Stop Time: 09:55
[2023-11-24] MEDS: METOCLOPRAMIDE HCL 5 MG/ML INJ 10 MG IVP (10:51)
[2023-11-24] MEDS: HYDROCODONE-ACETAMIN 5-325 MG 1 TAB PO (10:51)
--- NOTE | 2023-11-24 11:16 | P.GSOP_ITS ---
Operative Note Date of procedure: 11/24/23 Pre-op diagnosis: 1. Acute on chronic cholecystitis. Post-op diagnosis: 1. Chronic cholecystitis. Type of Procedure: 1. Laparoscopic cholecystectomy. Indications: 47-year-old female was seen in clinic for evaluation of multiple episodes of right upper quadrant pain. Her last episode brought her to the emergency room. Patient described the pain radiating to the lower back and wrapping around to the right upper quadrant. At times vomiting helped relieving the pain but not during her recent ER visit. In the emergency room she was found to have elevated WBC of 12.5. She had mild transaminitis with normal alkaline phosphatase and total bilirubin. Her lipase was normal. A gallbladder ultrasound showed cholelithiasis with gallbladder wall of 4 mm. There was small amount of pericholecystic fluid and her common bile duct was 4 mm. Her pancreatic duct was not completely visualized and was possibly dilated. Patient was referred for MRCP that showed normal not dilated pancreatic duct and common bile duct. On clinical exam patient had no tenderness to palpation in epigastrium or right upper quadrant and had negative Garcia sign. Given patient's clinical history and her physical exam acute on chronic cholecystitis was suspected. I recommended to proceed with laparoscopic cholecystectomy. The procedure was discussed in detail. The risks associated procedure including infection, bleeding, injury to intra-abdominal organs, and injury to the common bile duct were all discussed with the patient, and she agreed to proceed. Procedure Description: After discussing the risks and benefits of the procedure, the patient signed informed consent.? The operative site was marked and the patient was brought to the operating room and placed on the operating table in supine position.? Care was taken to pad the patient's pressure points.?? The patient was then intubated by anesthesia.?? The operative site was then prepped and draped in the usual sterile fashion.? A time-out was then performed. A 5-mm laparoscopy port was placed in the left upper quadrant guided by a 5-mm laparoscope placed into a translucent trochar.~ Passage through the layers of the abdominal wall was visualized with the laparoscope.~ A pneumoperitoneum was established. A 0-degree 5-mm laparoscope was advanced into the abdomen. The abdomen was briefly surveyed, and no adhesions were noted. A 10-mm port were placed infraumbilically and two more 5 mm ports were placed on the right under direct visualization by laparoscope. The camera was then changed to 10 mm 30- degree scope and placed into the abdomen through the 10 mm port. The left upper quadrant port entrance was examined and no injury to intra-abdominal organs was identified. The gallbladder was identified, the fundus grasped and retracted cephalad. The omentum and duodenum were tightly adherent to the gallbladder infundibulum. Those adhesions were taken down with cautery and with Metzenbaum scissors to avoid injury to the duodenum. The infundibulum was grasped and retracted lat erally, exposing the peritoneum overlying the triangle of Calot. This was then divided and exposed in a blunt fashion and with hook cautery. Common bile duct was not identified but care was taken not to injure it. The peritoneum overlying the triangle of Calot was vascular and difficult to divide suggestive of chronic inflammation. During division of peritoneum on the lateral gallbladder fossa some a, bleeding was noted from the peritoneal edge, and that was controlled with laparoscopic clip. The cystic duct was clearly identified and bluntly dissected circumferentially. Cystic artery was identified posterior to the cystic duct and tissues around it were dissected off. The cystic artery and the cystic duct were clearly going into the gallbladder. The cystic duct was then doubly ligated with surgical clips on the patient's side and singly clipped on the gallbladder side and divided. The cystic artery was then similarly ligated with clips and divided as well. The gallbladder was dissected from the liver bed in retrograde fashion using hookcautery. The gallbladder was placed into an Endo-Catch bag and removed through the infraumbilical incision. The infraumbilical incision had to be slightly enlarged to accommodate removal of the gallbladder. Surgical site was examined for bleeding. No bleeding was seen in the surgical field. The fascia of the infraumbilical incision was then closed with a running 0-0 vicryl. This closure was examined from the inside the abdomen, and no intra- abdominal structures were incarcerated in the closure. Pneumoperitoneum was completely reduced after viewing removal of the trocars under direct vision. The skin was then closed with 4-0 monocryl and steristrips were applied. Instrument, sponge, and needle counts were correct at closure and at the conclusion of the case. The patient was transferred to PACU in stable condition. Findings: Omental adhesions and duodenal adhesions to the gallbladder infundibulum. The peritoneum overlying the gallbladder infundibulum was vascular. Anesthesia: GETA Surgeon: Enzo Ghosh MD Estimated blood loss (mL): 15 Specimen: Gallbladder Condition: stable Disposition: PACU
== END 2023-11-24 11:45 | disposition home or self-care (01) ==
PROVIDERS: Visit Provider Surgery
PROC: 0FT44ZZ Resection of Gallbladder, Percutaneous Endoscopic Approach (ICD-10-PCS; CPT 47562; principal; 2023-11-24 08:15)
DX: K80.12 Calculus of gallbladder with acute and chronic cholecystitis without obstruction (principal); K82.8 Other specified diseases of gallbladder
CPT/HCPCS: 47562; 00790; 81025; 88304; A9270; J0665; J0690; J1100; J1170; J1885; J2250; J2405; J2704; J2710; J2765; J3010; J7120

== ENCOUNTER 2024-02-10 06:10 | Inpatient (IN) | payer OTHER, SELFPAY ==
[2024-02-10] VITALS (24 sets, daily range): BP systolic 112–135; BP diastolic 64–90; PULSE 70–90; RESP 12–18; TEMP 36.1–37.1; O2SAT 94–100; BMI 29.5
--- OUTSIDE RECORDS SUMMARY | 2024-02-10 06:13 | XMS_ITS | Encounter Summary ---
Author Organization [facility] Address [address] [place] [address] Care Team Providers Care Perinatal Nurse Name Role Phone Juan Treadwell PA-C Primary Care Provider [phone] Reason for Visit * Reason Comments Fax Faxed pre op Encounter Details Date Type Department Care Team (Late st Contact Info) Description 11/13/2023 Telephone [facility] [address] [place] [id number] Juan Treadwell PA-C [address] [place] [address] Fax (Faxed pre op) Social History Tobacco [...] 10:10 AM CDT Faxed pre op to [facility] at fax # [phone]. documented in this encounter Plan of Treatment Upcoming Encounters Date Type Department Care Team (Late st Contact Info) Description 03/29/2024 4:00 PM CDT Telemedicine [facility] [address] [phone] Juan Treadwell PA-C [address] [id number] documented as of this encounter Visit Diagnoses Not on filedocumented in this encounter Care Teams Perinatal Nurse Relationship Specialty Start Date End Date Juan Treadwell PA-C [address] [phone] PCP - General 11/01/13 documented as of this encounter
--- OUTSIDE RECORDS SUMMARY | 2024-02-10 06:13 | XMS_ITS | Data Portability ---
Author Organization [facility], [facility] Address [address] [place] [address] Assessment No assessment recorded. Plan of Treatment [...] Encounter Closed Date Diagnosis/Indication Diagnosis SNOMED-CT Code [id number] [address] [place] [address] 06/23/2019 17:14:47 06/23/2019 18:21:44 Health Concerns Section Related Observation LastModified by Organization Detai ls LastModified Time None Recorded Concern Status LastModified by Organization Details LastModified Time None Recorded Advance Directives Directive None Recorded Payers Encounter Date Sequence Insurance Name Policy Number Policy Brown Covered Member ID Brown Member ID Guarantor Name 06/23/2019 1 [id number] [address] [place] [id number] Ness Oliva OBGyn Episode No OBEpisode recorded.
--- OUTSIDE RECORDS SUMMARY | 2024-02-10 06:13 | XMS_ITS | Clinical Summary ---
Author Organization [facility] Address [address] [place] [address] Care Team Providers Care Product/Device Technologist Name Role Phone Juan Treadwell PA-C Primary Care Provider [phone] Source Comments You are receiving this document as you are listed as the primary care provider,follow-up provider, or the patient has been referred to you for consultation.This is in compliance with the Medicare and[employer] Health[employer] EHR Incentive Program,which states Providers who transition their patient to another setting of careor provider of care or refers their patient to another provider of care shouldprovide summary care record for each transition of care or referral. [facility] Allergies No known active allergies Medications Medication Sig Dispensed Refills Start Date End Date Status melatonin 5 MG tablet Take 1 Tablet (5 mg) by mouth daily at bedtime. Active omeprazole (PRILOSEC) 40 MG capsuleIndications:G astroesophageal reflux disease, unspecified whether esophagitis present TAKE 1 CAPSULE BY MOUTH EVERY DAY 1 HOUR BEFORE A MEAL 90 Capsule 2 07/16/2023 Active sertraline (ZOLOFT) 100 MG tabletIndications:An xiety (HRC) Take 1 Tablet (100 mg) by mouth daily. 11/13/2023 11/12/2024 Active Active Problems Problem Noted Date Diagnosed Date Atypical squamous cells of u ndetermined significance on cytologic smear of cervix (ASC-US) 07/17/2022 Overview: CCS Review: History: 06/2022: ASCUS HPV neg Plan, per ASCCP guidelines: Repeat co-test in 3 years (2024) Anxiety 07/07/2022 Gastroesophageal reflux disease 02/26/2021 Chronic midline thoracic back pain 02/26/2021 Resolved Problems Problem Noted Date Diagnosed Date Resolved Date Stage 1 hypertension 09/22/2023 024 Mixed urge and stress incontinence 07/07/2022 09/22/2023 Encounters Date Type Department Care Team Description 11/13/2023 8:30 AM CDT Lab Visit [facility] [address] [place] [address] Preop examination 11/13/2023 8:00 AM CDT Pre-Op Visit [facility] Medicine [address] [place] [address] [place] [address] Juan Treadwell PA-C Preop examination (Primary Dx); Gallstones; Gastroesophageal reflux disease without esophagitis; Anxiety (HRC) 11/13/[address] [place] [address] Juan Treadwell PA-C Fax (Faxed pre op) from Last 3 Months Immunizations Name Administration Dates Next Due Influenza (Flucelvax), Preserv Free QIV 04/02/20 21 Influenza (Fluzone 0.25, 6-35 mos) 05/06/2013 Influenza IIV4 (Quadrivalent) 0.5mL (79518) 03/2020,05/06/2013 Pfizer Monovalent 12+ Purple Top 07/20/2020,06/06 [...] 11/13/2023 7:55 AM CDT Plan of Treatment Upcoming Encounters Date Type Department Care Team (Late st Contact Info) Description 03/29/2024 4:00 PM CDT Telemedicine [place] [facility] [address] [phone] Juan Treadwell PA-C [address] [place] [phone] Health Maintenance Due Date Last Done Comments HepB (1) 1996 FIT Colon Cancer Screening 2021 COVID-19 Vaccine ( season) 2023 07/20/2020, 07/02/2020 Adult Preventive Visit 06/25/2023 , 02/18/2019, 09/09/2017 Influenza (#1) 2024 04/02/2021, 03/2020, 05/06/2013, Additional history exists Mammogram 09/09/2024 09/10/2023, 050 11/2021, 2018, Additional history exists Cervical Cancer Screening 06/25/20252021, 09/09/2017, 10/31/2013, Additional history exists Diabetes Screening- (based on age and BMI) 02/04/2026 02/04/2023 DTaP/Tdap/Td (2 - Tdap) 09/10/2027 09/09/2017 Zoster/Shingles (1 of 2) 12/22/2027 Cholesterol 02/05/2028 02/04/2023 HIV Screening (Preventive Services) Completed 02/04/2023 Hep C Screening (Preventive Services) Completed 02/04/2023 HepA Aged Out No longer eligi ble [...] this topic Medical Devices Implanted Type Area Tire Repair Mechanic Device Identifier Shelf Expiration Date Model / Serial / Lot Sling Advantage Mid-Urethral - [id number] Implanted:Qty: 1 on 02/18/2023 by Jcarlos Larson MD at [facility] DEVICE N/A: VAGINA [employer] 11/23/2025 [id number] / / [id number] Procedures Procedure Name Priority Date/Time Associated Diagnosis Comments TEST (URINE) STAT 11/13/2023 8:25 AM CDT Preop examination COMPLETE BLOOD COUNT-NO DIFF STAT 11/13/2023 8:25 AM CDT Preop examination MM MAMMOGRAM SCREENING BILAT W CAD Routine 09/10/2023 10:13 AM TALENT MANAGEMENT MANAGER HGB A1C Routine 02/04/2023 3:08 PM CDT [...] level PAP TEST Routine 06/25/2022 12:59 PM TALENT MANAGEMENT MANAGER Screening for malignant neoplasm of cervix from [...] Juan Treadwell PA-C LAB_1 [facility] ([facility]) [address] [place] [address] * Test (Urine) (11/13/2023 8:25 AM CDT) HCG, Urine Negative Negative 11/13/2023 8:39 AM CDT [facility] ([facility]) Urine Non-blood Collection / Unknown 11/13/2023 8:25 AM CDT 11/13/2023 8:25 AM CDT Juan Treadwell PA-C LAB_1 [facility] ([facility]) [address] [place] [address], [facility] * MM Mammogram Screening Bilat W CAD (09/10/2023 10:13 AM TALENT MANAGEMENT MANAGER) Anatomical Region Laterality Modality Breast Bilateral Mammography Impressions 09/10/2023 10:50 AM TALENT MANAGEMENT MANAGER : ACR BI-RADS Category 1: Negative RECOMMENDATION: Follow Up Imaging in 12 months - Bilateral The results and recommendations of this examination will be communicated to the patient. Narrative 09/10/2023 10:50 AM TALENT MANAGEMENT MANAGER MM MAMMOGRAM SCREENING BILAT W CAD [...] Ag/Ab 4th Generation (02/04/2023 3:08 PM CDT) HIV 1/2 Antigen/Antib siva (4th generation) Negative (Non Reactive) Negative (Non Reactive) 02/04/2023 8:43 PM CDT [facility] Comment:HIV-1 p24 Antigen an d HIV-1/HIV-2 Antibody not detected Blood Venipuncture / Unknown 02/04/2023 3:08 PM CDT 02/04/2023 3:08 PM CDT Juan Treadwell PA-C LAB_1 Performing Organization Address [facility]/ZIP Co de Phone Number [facility] [address] [place], [place] [address] * (ABNORMAL) Lipid Panel and Direct LDL(If Needed) (02/04/2023 3:08 PM CDT) Pathologist [facility] Cholesterol 181 0 - 199 mg/dL 02/04/2023 6:32 PM CDT [facility] Triglyceride 197(H) <=149 mg/dL 02/04/2023 6:32 PM CDT [facility] HDL Cholesterol 47 >=40 mg/dL 02/04/2023 6:32 PM CDT [facility] LDL, Calculated 95 <130 mg/dL 02/04/2023 6:32 PM CDT [facility] Non HDL Chol, Calculated 134 <=159 mg/dL 02/04/2023 6:32 PM CDT [facility] Cholesterol/HDL Ratio 3.9 02/04/2023 6:32 PM CDT [facility] Hours Fasting Unknown 02/04/2023 6:32 PM CDT [facility] (PN) Blood Venipuncture / Unknown 02/04/2023 3:08 PM CDT 02/04/2023 3:08 PM CDT Juan Treadwell PA-C LAB_1 Performing Organization Address [facility]/ZIP Co de Phone Number [facility] [address] [place] [address], [facility] [phone] [facility] (PN) [address] [place] [address], [facility] [phone] * Hepatitis C Antibody, with Reflex (02/04/2023 3:08 PM CDT) Pathologist [facility] Hepatitis C Antibody Negative (Non Reactive) Negative (Non Reactive) 02/04/2023 8:43 PM CDT [facility] Comment:Antibodies to HCV no t detected. Does not exclude the possiblity of exposure to HCV. Blood Venipuncture / Unknown 02/04/2023 3:08 PM CDT 02/04/2023 3:08 PM CDT Juan Treadwell PA-C LAB_1 Performing Organization Address [facility] de Phone Number [facility] [address] * Hgb A1C (02/04/2023 3:08 PM CDT) Pathologist [facility] Hemoglobin A1C 5.2 <=5.6 % 02/05/2023 9:32 AM CDT [facility] Estimated Average Glucose (Calc) 103 < 117 mg/dL 02/05/2023 9:32 AM CDT [facility] Comment:Estimated average gl ucose (eAG) converts A1c into glucose units (mg/dL) and estimates average glucose over the past approximately 3 months. The eAG reference interval (<117 mg/dL) corresponds to an A1c of <5.7%. Blood Venipuncture / Unknown 02/04/2023 3:08 PM CDT 02/04/2023 3:08 PM CDT Juan Treadwell PA-C LAB_1 Performing Organization Address [facility] de Phone Number [facility] [address] [phone] * (ABNORMAL) PAP Test (06/25/2022 12:59 PM TALENT MANAGEMENT MANAGER) Case Report Pap ? Case: [id number] ? Authorizing Provider: ??Juan Treadwell PA-C ?Collected: ? 06/25/2022 1259 ? Ordering Location: ? [facility] ?Received: ?06/25/2022 1538 ? First Screen: ?Chadbrucekim Chiara Maciel ? Pathologist: ? Ever Ignacio MD ? Specimen: ?Pap Test, Routine, Cervix/Endocerv ix ? 07/17/2022 8:15 AM TALENT MANAGEMENT MANAGER [facility] Pap Specimen Adequacy Satisfactory for evaluation, endocervical/tr ansformation zone component present. 07/17/2022 8:15 AM TALENT MANAGEMENT MANAGER [facility] Pap Interpretation (ASC-US) Atypical squamous cells of undetermined significance.(A ) 07/17/2022 8:15 AM TALENT MANAGEMENT MANAGER [facility] Pap Disclaimer The Pap test is a screening test designed to aid in the detection of cervical cancer and its precursor lesions. It is not a diagnostic procedure and should not be used as the sole means of detecting cervical cancer. Both false-positive and false-negative results may occur. 07/17/2022 8:15 AM TALENT MANAGEMENT MANAGER [facility] Gross Description The specimen is received in SurePath fixative and properly labeled. 1 Pap-stained SurePath slide is prepared. 07/17/2022 8:15 AM TALENT MANAGEMENT MANAGER [facility] Embedded Images 8:15 AM TALENT MANAGEMENT MANAGER [facility] Other Specimen Type ENTIRE ENDOCERVIX / Unknown 06/25/2022 12:59 PM TALENT MANAGEMENT MANAGER 06/25/2022 3:38 PM TALENT MANAGEMENT MANAGER Comment:LMP: No LMP recorded . Juan Treadwell PA-C LAB PATHOLOGY [facility] [address] [place] [address], [facility] from Last 3 Months or Most Recently Relevant to Health Maintenance Care Teams Product/Device Technologist Relationship Specialty Start Date End Date Juan Treadwell PA-C [address] [place] [address] PCP - General 11/01/13
--- OUTSIDE RECORDS SUMMARY | 2024-02-10 06:13 | XMS_ITS | Encounter Summary ---
Author Organization [facility] Address [address] [place] [address] Care Team Providers Care Mentally Retarded Teacher Name Role Phone Juan Treadwell PA-C Primary Care Provider [phone] Encounter Details Date Type Department Care Team ([facility] Contact Info) Description 11/13/2023 8:30 AM CDT Lab Visit [place] [facility] [address] [place] [phone] Preop examination Social History Tobacco Use Types [...] Upcoming Encounters Date Type Department Care Team ([facility] Contact Info) Description 03/29/2024 4:00 PM CDT Telemedicine [facility] [facility] [address] [place] [phone] Juan Treadwell PA-C [address] [place], [place] [address] documented as of this encounter Procedures Procedure [...] Juan Treadwell PA-C LAB_1 [facility] ([facility]) [address] [place] [address], [facility] * Complete Blood Count-No Diff (11/13/2023 8:25 AM CDT) WBC 6.2 3.5 - 10.5 x10(9)/L 11/13/2023 8:35 AM CDT [facility] ([facility]) RBC 4.53 3.90 - 5.03 x10(12)/L 11/13/2023 8:35 AM CDT [facility] ([facility]) Hemoglobin 13.7 12.0 - 15.5 g/dL 11/13/2023 8:35 AM CDT [facility] ([facility]) HCT 39.7 34.9 - 44.5 % 11/13/2023 8:35 AM CDT [facility] ([facility]) MCV 87.6 80.0 - 100.0 [...] Juan Treadwell PA-C LAB_1 [facility] ([facility]) [address] [address], [facility] documented in this encounter Visit Diagnoses Diagnosis Preop examination Preoperative examination, unspecified documented in this encounter Care Teams Mentally Retarded Teacher Relationship Specialty Start Date End Date Juan Treadwell PA-C [address] [place] [address] PCP - General 11/01/13 documented as of this encounter
--- OUTSIDE RECORDS SUMMARY | 2024-02-10 06:13 | XMS_ITS | Clinical Summary ---
Author Organization [employer] [facility] Address [place], [place] [address] Care Team Providers Care Air Traffic Controller Center Name Role Phone Juan Treadwell Primary Care Provider [phone] Allergies No known active allergies Medications Medication [...] Encounters Date Type Department Care Team Description 11/24/2023 Lab Requisition [facility] [phone] Enzo Ghosh MD from Last 3 Months Social History Tobacco [...] Procedure Name Priority Date/Time Associated Diagnosis Comments LAB TRACKING EVENT Routine 11/24/2023 9: 21 AM CDT PATH TISSUE EXAM Routine 11/24/2023 9:21 AM CDT from Last 3 Months Results * LAB TRACKING EVENT (11/24/2023 9:21 AM CDT) Other (Other) Client Collect / Unknown 11/24/2023 9:21 AM CDT 11/24/2023 2:41 PM CDT Enzo Ghosh MD LAB BILL ONLY [facility] [address] [place] [address], * PATH TISSUE EXAM (11/24/2023 9:21 AM CDT) Case Report Pathology Report ?Case: [id number] ? Authorizing Provider: ??Enzo Ghosh MD ?Collected: ? 11/24/2023 0921 ? Ordering Location: ? [facility] ?Received: ?11/24/2023 1513 ? Pathologist: ? iLsa Javier DO ? Specimen: ?Gallbladder ? 11/27/2023 10:10 AM CDT [facility] Final Diagnosis A) GALLBLADDER, CHOLECYSTECTOMY: 1. Chronic cholecystitis with cholesterolosis 2. Cholelithiasis 3. Negative for dysplasia and malignancy 11/27/2023 10:10 AM T [facility] Clinical Information Ms. Oliva is a 47 y.o. who presents for cholecystectomy. 11/27/2023 10:10 AM CDT [facility] Gross Description A) Received in formalin, labeled with the patient's name and gallbladder, is a 1.5 x 3.4 x 2.7 cm intact gallbladder. ??There are multiple yellow gallstones identified. There is fine yellow stippling in the mucosa; no other lesions are identified. The average wall thickness is 0.3 cm. ??There is slight thickening of the gallbladder wall. No cystic duct lymph node is identified. Manager Psychiatry sections are submitted in one cassette. EKW 11/25/2023 11/27/2023 10:10 AM CDT [facility] Microscopic Description The final diagnosis is based on microscopic examination of appropriate sections of all specimens. 11/27/2023 10:10 AM CDT [facility] Additional Information Interpreted at [facility] - [address] [facility] [address], [place] [address] 11/27/2023 10:10 AM CDT [facility] Other SPECIMEN FROM GALLBLADDER / Unknown 11/24/2023 9:21 AM CDT 11/24/2023 3:13 PM CDT Enzo Ghosh MD PATHOLOGY/CYTOLOGY Performing Organization Address City/State/[facility] Co de Phone Number [facility] [address] [place] [address], from Last 3 Months Care Teams Air Traffic Controller Center Relationship Specialty Start Date End Date Juan Treadwell PA [address] [place] [address] PCP - General 03/08/21
--- OUTSIDE RECORDS SUMMARY | 2024-02-10 06:14 | XMS_ITS | Encounter Summary ---
Author Organization [facility] Address [address] [place] [address] Care Team Providers Care Tonsorial Artist Name Role Phone Juan Treadwell PA-C Primary Care Provider [phone] Reason for Visit * Reason Comments RESULTS, TEST Encounter Details Date Type Department Care Team (Late st Contact Info) Description 10/01/2023 Telephone [facility] [address] [facility] [address] [place] [address] Juan Treadwell PA-C [address] [place], [place] [phone] RESULTS, TEST Social History Tobacco Use Types [...] All labs have been done 09/28 Primary Research Intern: Juan Treadwell PA-C Who ordered the test? [...] Contact Info) Description 03/29/2024 4:00 PM CDT [facility] [address] [phone] Juan Treadwell PA-C [address] [place] [address] documented as of this encounter Visit Diagnoses Not on filedocumented in this encounter Care Teams Tonsorial Artist Relationship Specialty Start Date End Date Juan Treadwell PA-C [address] [phone] PCP - General 11/01/13 documented as of this encounter
--- OUTSIDE RECORDS SUMMARY | 2024-02-10 06:14 | XMS_ITS | Encounter Summary ---
Author Organization [facility] Address [address] [place] [address] Care Team Providers Care Reproductive Healthcare Assistant Name Role Phone [place] Primary Care Provider Samia romero [facility], Kirstin [place] Primary Care Provide r Encounter Details Date Type Department Care Team (Late st Contact Info) Description 01/25/2010 Clinic Report (Assistant Paralegal) [address] [phone] Madie Murray MD NO INFO AVAILABLE 09/17/2022 [...] on filedocumented in this encounter Care Teams Reproductive Healthcare Assistant Relationship Specialty Start Date End Date [place] [facility] PCP - General Family Practice 06/23/19 [facility]02[facility]22 [facility] [address] [place] [address] PCP - General 12/03/22 documented as of this encounter
--- OUTSIDE RECORDS SUMMARY | 2024-02-10 06:14 | XMS_ITS | Encounter Summary ---
Author Organization [facility] Address [address] [place] [address] Care Team Providers Care Credit Control Officer Name Role Phone [place] Primary Care Provider [facility] Primary Care Provide r Encounter Details Date Type Department Care Team (Late st Contact Info) Description 07/24/2010 Clinic Report (Gasket Notcher) [address] [phone] Rupinder Hanson DO Social History Tobacco Use Types Packs/Day Years [...] form: 'Patient Medication Summary'. Patient Instructions: None BOSS documented in this encounter Plan of Treatment Not on file documented as of this encounter Visit Diagnoses Not on filedocumented in this encounter Care Teams Credit Control Officer Relationship Specialty Start Date End Date [place] [facility] PCP - General Family Practice 06/23/19 12/02/22 [facility], Kirstin [place] [address] [place], [place] [phone] PCP - General 12/03/22 documented as of this encounter
--- OUTSIDE RECORDS SUMMARY | 2024-02-10 06:14 | XMS_ITS | Encounter Summary ---
Author Organization [facility] Address [address] [place] [address] Care Team Providers Care Knit Goods Washer Name Role Phone Juan Treadwell PA-C Primary Care Provider [phone] Reason for Visit * Reason Comments PRE-OP EXAM Surgery on 11/24/23 [facility] with Dr. Baumann fax # [phone] Encounter Details Date Type Department Care Team (Late st Contact Info) Description 11/13/2023 8:00 AM CDT Pre-Op Visit [facility] [facility] [address] [facility] [place], [place] [phone] Juan Treadwell PA-C Critical access hospital[facility] [place] [phone] Preop examination (Primary Dx); Gallstones; Gastroesophageal reflux [...] described above. In addition, please stop all bgfe-plb-nlrlxop medications including aspirin, ibuprofen (Advil, Motrin), naproxen [...] gallbladder Surgeon Location Other Other Location Name [facility] [place] Procedure Date 11/24/2023 Enriqueta Arzola is a 47 y.o. old female here for pre-operative evaluation for procedure noted above. Patient Active Problem List Diagnosis Date Noted Stage 1 hypertension (HRC) 09/22/2023 Atypical squamous cells of undetermined significance on cytologic smear of cervix (ASC-US) 07/17/2022 Overview Note: [facility] Review: History: 06/2022: ASCUS HPV neg Plan, per ASCCP guidelines: Repeat co-test in 3 years (2024) Anxiety ([facility]) 07/07/2022 Gastroesophageal reflux disease 02/26/2021 Chronic midline thoracic back pain ([facility]) 02/26/2021 Past Medical History: Diagnosis Date History [...] Known Allergies Social History Occupational History Occupation: [employer] Tobacco Use Smoking status: Former Current packs/day: [...] described above. In addition, please stop all gjyo-wjt-krozqao medications including aspirin, ibuprofen (Advil, Motrin), naproxen [...] PM CDT Telemedicine [facility] [address] [phone] Juan Treadwell PA-C [address] [place] [address] [place] [phone] documented as of this encounter Results * Test (Urine) (11/13/2023 8:25 AM CDT) HCG, Urine Negative Negative 11/13/2023 8:39 AM CDT [facility] ([facility]) Urine Non-blood Collection / Unknown 11/13/2023 8:25 AM CDT 11/13/2023 8:25 AM CDT Juan Treadwell PA-C LAB[facility]1 [facility] ([facility]) [address] [place] [address] [place] [address], [facility] * Complete Blood Count-No Diff [...] Juan Treadwell PA-C LAB[facility] ([facility]) [address] [address], [facility] documented in this encounter Visit Diagnoses Diagnosis Preop examination- Primary Preoperative examination, unspecified Gallstones Calculus of gallbladder without mention of cholecystitis or obstruction Gastroesophageal reflux disease without esophagitis Esophageal reflux Anxiety (HRC) Anxiety state, unspecified documented in this encounter Care Teams Knit Goods Washer Relationship Specialty Start Date End Date Juan Treadwell PA-C [address] [place] [address] PCP - General 11/01/13 documented as of this encounter
--- OUTSIDE RECORDS SUMMARY | 2024-02-10 06:14 | XMS_ITS | Encounter Summary ---
Author Organization [facility] Address [address] [place] [address] Care Team Providers Care Teletype Installer Name Role Phone [place] Bishop Primary Care Provider [facility] Care Provide r Encounter Details Date Type Department Care Team (Late st Contact Info) Description 06/13/2011 Clinic Report (Career Agent) [address] [phone] Rupinder Hanson DO Social History Tobacco Use [...] and wishes to proceed. Patient Instructions: None NER documented in this encounter Plan of Treatment Not on file documented as of this encounter Visit Diagnoses Not on filedocumented in this encounter Care Teams Teletype Installer Relationship Specialty Start Date End Date [place] Bishop PCP - General Family Practice 06/23/19 12/02/22 [facility] [address] [place] [address] PCP - General 12/03/22 documented as of this encounter
--- OUTSIDE RECORDS SUMMARY | 2024-02-10 06:14 | XMS_ITS | Encounter Summary ---
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 She presented for well woman exam ([age] [...] on filedocumented in this encounter Care Teams Pigment Pusher Relationship Specialty Start Date End Date [place] Bishop PCP - General Family Practice 06/23/19 12/02/22 [facility], Kirstin [place] [facility] [place] [address] PCP - General 12/03/22 documented as of this encounter
--- OUTSIDE RECORDS SUMMARY | 2024-02-10 06:14 | XMS_ITS | Referral Summary ---
Author Organization [facility] Address [address] [place] [id number] Care Team Providers Care Pan Cleaner Name Role Phone Clinic, Kirstin Lyons Primary [...] Comments Blood Pressure 129/86 06/23/2019 6:02 PM RECRUIT INSTRUCTOR Pulse 60 06/23/2019 6:02 PM RECRUIT INSTRUCTOR Temperature 37 ??C (98.6 ??F) 06/23/2019 5:31 PM RECRUIT INSTRUCTOR Respiratory Rate 14 06/23/2019 7:01 PM RECRUIT INSTRUCTOR Oxygen Saturation 97% 06/23/2019 6:50 PM RECRUIT INSTRUCTOR Inhaled Oxygen Concentration - - Weight - - Height - - Body Mass Index - - Plan of Treatment Not on file Care Teams Pan Cleaner Relationship Specialty Start Date End Date ClinicKirstin [address] [place] [address] (work) [facility] - General 12/03/22
--- OUTSIDE RECORDS SUMMARY | 2024-02-10 06:14 | XMS_ITS | Clinical Summary ---
Author Organization [facility] Address [address] [place] [id number] Care Team Providers Care Business Programmer Name Role Phone ClinicKirstin Primary Care Provide r Allergies No known [...] Comments Blood Pressure 129/86 06/23/2019 6:02 PM CLIENT CUSTOMER MANAGER Pulse 60 06/23/2019 6:02 PM CLIENT CUSTOMER MANAGER Temperature 37 ??C (98.6 ??F) 06/23/2019 5:31 PM CLIENT CUSTOMER MANAGER Respiratory Rate 14 06/23/2019 7:01 PM CLIENT CUSTOMER MANAGER Oxygen Saturation 97% 06/23/2019 6:50 PM CLIENT CUSTOMER MANAGER Inhaled Oxygen Concentration - - Weight - - Height - - Body Mass Index - - Plan of Treatment Not on file Care Teams Business Programmer Relationship Specialty Start Date End Date ClinicKirstin [address] [place] [address] (work) [facility] - General 12/03/22
--- OUTSIDE RECORDS SUMMARY | 2024-02-10 06:14 | XMS_ITS | Encounter Summary ---
Author Organization [facility] Address [address] [place] [id number] Care Team Providers Care Leather Seasoner Name Role Phone Eloy Bishop Primary Care Provider Samia aralicia [facility], Kirstin Lyons Primary Care Provide r Encounter Details Date Type Department Care Team (Late st Contact Info) Description 04/22/2007 Clinic Report (Composing Room Supervisor) [address] [phone] Madie [place] MD NO INFO AVAILABLE 09/17/2022 [...] on filedocumented in this encounter Care Teams Leather Seasoner Relationship Specialty Start Date End Date Eloy Bishop PCP - General Family Practice 06/23/19 12/02/22 Clinic, Kirstin Lyons [address] [place] [id number] PCP - General 12/03/22 documented as of this encounter
[2024-02-10] MEDS: LACTATED RINGERS 1000 ML 1,000 ML 100 ML IV ×2 (06:15→09:18)
[2024-02-10] MEDS: SODIUM CHLORIDE 0.9 % (FLUSH) 10 ML SYRINGE IVF (06:37)
[2024-02-10 06:45] LABS: Ur HCG Qualitative* Negative (Negative)
[2024-02-10 07:10] LABS: Hemoglobin* 14.7 gm/dL (12.0-16.0)
--- NOTE | 2024-02-10 07:45 | W.PM.H&PU ---
History & Physical Update History & Physical Update H&P Reviewed and patient assessed: No changes noted
--- NOTE | 2024-02-10 07:45 | PM.PROC ---
Procedure Note Time Seen by Provider: 11:50 Date Seen: 02/10/24 Date of procedure: 02/10/[address] [facility] bill your pro fee for this procedure?: Yes Procedure: DATE: 02/10/2024 REFERRING PHSICIAN/PROVIDER: none PREOPERATIVE DIAGNOSIS: 48-year-old with menorrhagia and uterine fibroids POSTOPERATIVE DIAGNOSIS: Same. NAME OF PROCEDURE: Total abdominal hysterectomy. Bilateral salpingectomies, diagnostic cystoscopy. Dr. Roldan placed a left ureteral stent that was removed at the end of the procedure. SURGEON: Molly Argueta MD ARMATURE AND ROTOR WINDER: Jigna Lara MD. CONSULTING SURGEON: Ralph Roldan MD ANESTHESIA: General endotracheal. TAPS block COMPLICATIONS: none ESTIMATED BLOOD LOSS: 500 ml URINE OUTPUT: Not recorded but clear urine at the end of the procedure IV FLUID: 2000mL DRAINS: Eugene to gravity. FINDINGS: On exam under anesthesia the uterus was approximately 16 week size. On laparotomy: uterus was enlarged with multiple fibroids making the uterus globular that filled the pelvis. Both ovaries were normal in appearance. The fallopian tubes had previously been ligated but were otherwise normal. On diagnostic cystoscopy there was noted to be a dimple in the bladder on the left side and there was no urine jet from the left ureteral orifice. after the sutures of the vaginal cuff were removed the dimple resolved. Dr. Roldan Had some difficulty passing the left ureteral stent consistent with the ureter being tethered by a suture. The left angle suture was removed and the stent was able to be passed. A urine jet was noted from the left ureteral orifice was noted prior to placing the stent. PROCEDURE: After obtaining informed consent, the patient was taken to the operating room where general anesthesia was obtained without difficulty. She was prepared and draped in the normal sterile fashion in the dorsal supine position. A Eugene catheter was inserted sterilely into the bladder. Prior to making the skin incision, it was injected with 10 mL of 0.25% Marcaine. A Pfannenstiel skin incision was made with a scalpel. This incision was carried down to the underlying layer of fascia with the Bovie. The fascia was incised in the midline and the incision extended laterally. The superior and inferior aspects of the fascial incision were grasped with Nicho clamps and the underlying rectus muscles dissected off sharply. The rectus muscles were in the midline. The underlying peritoneum was identified and entered bluntly. The peritoneal incision was extended superiorly and inferiorly with good visualization of the bladder. The patient was placed in some mild Trendelenburg positioning. The bowels were packed cephalad using a large moistened laparotomy sponge. The Willis O retractor was placed in the incision. This provided excellent visualization of the pelvis. The pelvis was inspected with the findings noted above. Nallely clamps were placed at the cornua bilaterally for traction. Both ureters were identified along their courses within the pelvic sidewall by palpation, patient patient body habitus made limited visualization. The right round ligament was doubly clamped with Nicho clamps, transected, and suture ligated with 0 Vicryl. The anterior leaf of the broad ligament was opened to the midline from the right side. Down to the level of the cervix. The right fallopian tube was elevated with [place] clamps. Christina clamps were placed across the tubal attachments, which were then transected and suture ligated with 0 Vicryl. A Christina clamp was placed across the right fallopian tube at the cornua and the tube was excised and the pedicle suture ligated with 0 Vicryl. The right ovarian ligament was then isolated, clamped across with 2 Christina clamps, transected, and doubly suture ligated with 0 Vicryl. Hemostasis was observed. The uterine vessels were skeletonized on the right side. The vessels were clamped across with a Christina and a straight clamp, transected, and suture ligated. Excellent hemostasis was obtained. Attention was then turned to the left side. The left round ligament was clamped with 2 Nicho clamps, transected, and suture ligated with 0-Vicryl. The anterior leaf of the broad ligament was opened from the left side to the midline. The bladder flap was then created bluntly. The bladder was further pushed caudally with a sponge stick. The left fallopian tube was clamped across its attachments serially, transected, and suture ligated with 0-Vicryl until the tube was transected at the cornua. The left ovarian ligament was clamped with 2 Christina clamps, transected, and doubly suture ligated with 0-Vicryl. Hemostasis was visualized. The left uterine vessels were skeletonized and then clamped across with Christina clamps, transected, and suture ligated. Excellent hemostasis was obtained. At this point the enlarged uterus was removed from the cervix using Ontiveros scissors. The cervix was then grasped with 2 Nicho clamps. The remaining cardinal and uterosacral ligament attachments on both sides were clamped with straight Christina clamps adjacent to the lower uterine segment and cervix, transected and suture ligated with 0 Vicryl. Excellent hemostasis was obtained. Two Christina clamps were placed across the vaginal cuff angles. The uterus with attached cervix was then transected and passed off the field. The vaginal cuff angles were fixed with Christina stitches of 0 Vicryl. The intervening vaginal cuff was closed with [id number] sutures of 0 Vicryl. The abdomen and pelvis were then copiously irrigated. IV fluorescein was given to the patient. The Eugene catheter was removed. A diagnostic cystoscopy was performed which showed tethering of the bladder on the left side with the dimple in the bladder wall. No suture was identified. There was a normal urine jet through the right ureteral orifice. All of the vaginal cuff sutures were removed and the left angle stitch removed. The dimple in the bladder was noted to be resolved. Dr. Fredrick Yi was asked to place a left ureteral stent as a urine jet was not noted through the orifice. Just prior to her passing the stent was spontaneous ureteral urine jet through the orifice on the left. The ureteral stent was then placed on the left. The Eugene catheter was replaced. Attention was returned to the abdomen where the vaginal cuff was reclosed with [id number] sutures using 0 Vicryl with excellent visualization of the ureter and bladder throughout. A right angle clamp was used at the left vaginal angle in order to reapproximate peritoneal edges that were oozing. Small bleeding vessels were isolated with DeBakey clamps and cauterized for hemostasis. the pelvis was irrigated and hemostasis verified. Margot was applied to the vaginal cuff to confirm hemostasis. All laparotomy sponges and instruments were then removed. The subfascial tissues were carefully inspected and hemostasis assured. The fascia was re-approximated in a running fashion with a looped 0 Maxon suture. The subcutaneous tissues were copiously irrigated and hemostasis assured. The subcutaneous adipose layer was re-approximated using 3-0 plain gut interrupted sutures. The skin was closed in a subcuticular fashion with 4-0 Monocryl. Exofin skin adhesive was applied and a sterile dressing placed The patient tolerated the procedure well. Sponge, lap, needle, instrument counts were reported as correct x2. The patient was taken to recovery room awake and in stable condition. She received 2g of IV Ancef preoperatively. The uterus was weighed at the conclusion of the procedure, weight was 871 g in the operating room. PATHOLOGY SPECIMEN(S): Uterus, cervix, left fallopian tube, right fallopian tube.
[2024-02-10] MEDS: CEFAZOLIN 2 GM INJ IVP (07:47)
[2024-02-10] MEDS: 0.9 % SODIUM CHLORIDE 100 ml INJECTION (08:19)
[2024-02-10] MEDS: VASOPRESSIN 20 UNIT/ML INJ INJECTION (08:19)
--- NOTE | 2024-02-10 10:05 | W.PM.NB ---
Nerve Block Nerve Block Time Seen by Provider: 07:49 Date Seen: 02/10/24 Type of block requested by surgeon for post-operative analgesia: TAP Side: bilateral Time out performed: Yes Verification of patient name: Yes Verification of date of : Yes Site marking: site marked Name of person performing procedure: Heron Continuous monitoring Was continuous monitoring of O2 sat, B/P, equipment monitor phototypesetting, recorded every 15 minutes?: Yes Procedure Checklist: sterile prep, needles and gloves Ultrasound guided. Images saved: Yes Medications given in 5ml increments after negative aspiration: Marcaine %: 0.25 mL: 30 Needle gauge: 20 and Exparel mL: 10 Patient tolerated procedure well: Yes Additional comments: Needle noted between internal oblique and transversus abdominus. Local spread visualized Block Charges Block Charge (with Pro Fee): TAP Bilateral Use of Ultrasound Machine for Block: Yes- US Guidance/pain block
--- NOTE | 2024-02-10 10:05 | W.ANESCHARGE ---
Anesthesia Charges Start Date/Time Anesthesia Start Date: 02/10/24 Anesthesia Start Time: 07:42 Stop Date/Time Anesthesia Stop Date: 02/10/24 Anesthesia Stop Time: 12:06
--- NOTE | 2024-02-10 11:09 | P.GYNPRC_ITS ---
Procedure Note Time Seen by Provider: 11:09 Date of procedure: 02/10/24 Will [facility] bill your pro fee for this procedure?: Yes Pre-op diagnosis: Absent left ureteral efflux Procedure: Diagnostic cystoscopy, left ureteral external stent insertion Anesthesia: GETA Complications: None Surgeon: Ralph Roldan MD Estimated blood loss (mL): 0 IV fluids (mL): 0 Pathology: none sent Condition: stable Disposition: no change Procedure Description: I was consulted intraoperatively by Dr. Argueta regarding absent left ureteral efflux. Patient was already anesthetized, prepped and draped. Dr. Sherif Baptiste had previously completed a total abdominal hysterectomy, bilateral salpingectomy and diagnostic cystoscopy in the setting of fibroid uterus. She noted the patient's intra-abdominal anatomy was significantly altered due to uterine pathology. On her postprocedure diagnostic cystoscopy, there was note of absent ureteral jet and mild trauma noted to the bladder. She subsequently took down the entirety of the vaginal cuff closure. On repeat diagnostic cystoscopy, left ureteral efflux was again noted to be absent. At this time I was consulted. Please see Dr. Argueta's note for complete details. On arrival to the operating room, I confirmed the absence of left ureteral efflux. There was evidence of slight trauma to the bladder just superior to the left UO, consistent with possible stitch with previous cuff closure. Characteristic image was obtained. A 0.35mm straight tip, flexible ureteral guidewire inserted through the operative channel of the cystoscope. This was easily introduced into the left ureteral orifice and could be advanced 3-4 cm, before the wire started to bend and ultimately would dislodge from the ureteral orifice. This was repeated twice with the same findings. Intra-abdominal inspection was ongoing, where there was suspicion this may be at the site of left uterine vessel stitch. After these initial attempts to pass the wire, spontaneous left ureteral efflux was noted. I attempted once more to pass the wire with difficulty. My suspicion intraoperatively was for slight kinking of the ureter that may not be amenable to passage of the flexible wire but allowed spontaneous free flow of ureteral efflux with fluorescein stained urine. Still, left ureteral stenting was desired in order to safely close the vaginal cuff. As such, I then attempted to directly stent with a open ended ureteral stent. This could be passed to 4 cm, at which time slight resistance was noted but s ubsequently with twisting of the stent and gentle pressure could ultimately be advanced. Flexible ureteral stent was inserted to a total depth of 20 cm. Proper stent placement was confirmed by intra-abdominal palpation. Free flow of urine was noted at the external end of the stent. The stent was secured as cystoscope was removed. Abebe catheter was inserted. The stent was then secured to the Abebe bag with plan to remove following cuff closure. Care was turned over to Dr. Argueta. She will remove left external ureteral stent at completion of hysterectomy, then reintroduce abebe catheter for post-op care. Procedure was well tolerated and with no apparent complications.
--- NOTE | 2024-02-10 11:46 | W.PM.GYNPROC ---
Procedure Note Date of procedure: 02/10/24 Will [facility] bill your pro fee for this procedure?: Yes Procedure Description: PREOPERATIVE DIAGNOSIS: 1. Menorrhagia. 2. Enlarged myomatous uterus. POSTOPERATIVE DIAGNOSIS: 1. Menorrhagia. 2. Enlarged myomatous uterus. PROCEDURE: 1. Total abdominal hysterectomy with bilateral salpingectomies. 2. Diagnostic cystoscopy. 3. Placement of left ureteral stent intraoperatively by Dr. Roldan. SURGEON: Ellie. COMMERCIAL RETOUCHER: Jane. CONSULTING SURGEON: Yuli. ANESTHESIA: General endotracheal COMPLICATIONS: None ESTIMATED BLOOD LOSS: 500 mL. FINDINGS: Enlarged, irregular uterus, weight 171 g. PROCEDURE NOTE: Please see the operative report by Dr. Argueta for full details of the procedure. I was asked to assist. I was scrubbed in for the entire procedure until closure of the abdominal incisions. I provided assistance with visualization and retraction, and with the hysterectomy and bilateral salpingectomies from the right side, as well as with hemostasis and closure of the vaginal cuff and fascia.
--- NOTE | 2024-02-10 12:06 | W.ANESCHARGE ---
Anesthesia Charges Start Date/Time Anesthesia Start Date: 02/10/24 Anesthesia Start Time: 07:42 Stop Date/Time Anesthesia Stop Date: 02/10/24 Anesthesia Stop Time: 12:06
[2024-02-10] MEDS: fentaNYL 100 MCG/2 ML inj 50 MCG IVP ×3 (12:08→12:26)
[2024-02-10] MEDS: HYDROmorphone 0.5 mg/0.5 ml inj 1 MG IVP (12:40)
[2024-02-10] MEDS: ACETAMINOPHEN 325 MG TABLET 650 MG PO ×2 (12:41→17:09)
[2024-02-10] MEDS: LACTATED RINGERS 1000 ML 1,000 ML 125 ML IV (13:05)
[2024-02-10] MEDS: KETOROLAC 30 MG/ML inj IVP ×2 (13:58→19:46)
[2024-02-10] MEDS: OXYCODONE 5 MG TABLET PO ×2 (14:49→22:36)
[2024-02-10] MEDS: ONDANSETRON 2 MG/ML inj 4 MG IVP (18:10)
--- NOTE | 2024-02-10 19:13 | PC.NURSE ---
End of shift note (): Pt A&Ox3, pleasant, and cooperative. LS CTA. Pt denies CP/SOB. Pt was admitted to the floor at 1300. Pt was rating pain around 8-9/10. PRN pain medications were given. Pt is SL, tolerating regular diet well and drinking fluids. Pt had a period of nausea, PRN?medication was given. Abdominal incision is CDI. Ice applied. SCDs in place. Pt tolerated sit/dangle well. Eugene is patent and draining. Pts pain appears well managed and is watching TV, call light within reach. ?
[2024-02-11] VITALS (8 sets, daily range): BP systolic 107–119; BP diastolic 71–86; PULSE 75–97; RESP 14–18; TEMP 36.6–37.3; O2SAT 95–98
[2024-02-11] MEDS: KETOROLAC 30 MG/ML inj IVP ×3 (01:38→13:49)
[2024-02-11] MEDS: OXYCODONE 5 MG TABLET PO ×2 (06:42→21:21)
[2024-02-11 06:50] LABS: Hemoglobin* 10.6 gm/dL (12.0-16.0)
--- NOTE | 2024-02-11 06:50 | PC.NURSE ---
END OF SHIFT NOTE: PT PLEASANT AND COOPERATIVE. A&Ox4. CP, SOB, N/V. IN BED FOR SHIFT. VSS ON RA; AFEBRILE. REPORTS PAIN 2-5/10 TO INCISION SITE WITH RELIEF FROM SCHEDULED AND PRN MEDICATION. ACTIVE ICE IN PLACE. DRESSING TO ABD INCISION CDI. CALL LIGHT WITHIN PT?S REACH.?
--- NOTE | 2024-02-11 08:09 | P.GYNPN_ITS ---
ENVIRONMENTAL EDUCATION SPECIALIST - A/P Assessment and plan (1) Status post abdominal hysterectomy: Problem details: with biltateral salpingectomy Status: Acute Plan 1. Continue postoperative care 2. Planning discharge home tomorrow 3. Activity restrictions reviewed Postoperative Procedures: Procedures Operation Date: 02/10/24 07:30 Actual Procedure Side Surgeon p Total Abdominal Hysterectomy, Bilateral Salpingectomy, Cystoscopy Bilateral Molly Argueta MD s Diagnostic Cystoscopy, Left Ureteral Stent insertion and Removal Left Roxanne Roldan MD Time Spent With Patient Time: Total time spent is greater than 50% in coordination of care (as documented) at patient's floor/unit and/or counseling patient: Time with patient: less than 15 minutes ENVIRONMENTAL EDUCATION SPECIALIST- PN:Subj Post-Op Subjective Time Seen by Provider: :09 Date Seen: 02/11/24 Post Operative Details: Post-operative day number -1-: status post MARK/Bilateral salpingectomy/diagnostic cystoscopy/placement and removal of L ureteral stent. Subjective: patient has no complaints, pain is well controlled, ambulating well, voiding without difficulty and patient is tolerating oral intake ENVIRONMENTAL EDUCATION SPECIALIST-PN: Obj Exam Physical Exam: Vital signs: Temp Pulse Resp BP Pulse Ox O2 Del Method 97.9 F 97 18 107/77 97 Room Air 02/11/24 01:40 02/11/24 01:40 02/11/24 01:40 02/11/24 01:40 02/11/24 01:40 02/11/24 01:40 Narrative: General: Pleasant, , well groomed woman in no acute distress. Vital Signs: Included in her electronic medical record. Heart: Regular rate and rhythm without gallop, rub or murmur. Chest: Clear to auscultation bilaterally. Abdomen: Soft, mild tenderness throughout consistent with her postoperative state. No guarding or rebound. Normal bowel sounds throughout. No CVA or flank tenderness. Incision: Clean, dry and intact with sutures and skin adhesive gel Extremities: SCDs in place Urinary Catheter Management: Urethral: Cath placed during this visit: yes Urethral indwelling: Yes Reason for continuing: decision to DC catheter Insertion date: 02/10/24 Insertion time: 08:12 ENVIRONMENTAL EDUCATION SPECIALIST - PN: Obj Data Labs Labs: Laboratory Results - last 24 hr 02/10/24 02/11/24 07:02 06:00 Hgb 10.6 L Blood Type B Positive Antibody Screen NEGATIVE
[2024-02-11] MEDS: OMEPRAZOLE 20 MG CAPSULE DR 40 MG PO (08:21)
[2024-02-11] MEDS: SERTRALINE 100 MG TABLET 150 MG PO (08:22)
[2024-02-11] MEDS: DOCUSATE SODIUM 100 MG CAPSULE PO (08:31)
[2024-02-11] MEDS: ACETAMINOPHEN 325 MG TABLET 650 MG PO (14:13)
[2024-02-11] MEDS: IBUPROFEN 600 MG TABLET PO ×2 (17:17→23:16)
--- NOTE | 2024-02-11 18:32 | PC.NURSE ---
End of shift note (): Pt A&Ox3, pleasant, and cooperative. VSS on RA.?Pt denies CP/SOB/N/V. Reports pain 4-6/10 to incision site, relief from scheduled and PRN medication. Pt?tolerating regular diet well. Abdominal incision area is dry, clean, and color appropriate to ethnicity.?Ice applied throughout the shift. SCDs in place. Pt tolerated two walks in the hallway well, abdominal band PRN. Eugene was removed, Pt using toilet well.?Pt had a scant amount of blood while using the bathroom @ 1530, pad applied to undergarments. Continuing to monitor. Pts pain appears well managed. Pt is in room with family member,?call light within reach.??
[2024-02-12] MEDS: OXYCODONE 5 MG TABLET PO (02:03)
[2024-02-12 03:03] VITALS: BP 131/93; PULSE 71; RESP 16; TEMP 36.4; O2SAT 97
[2024-02-12] MEDS: IBUPROFEN 600 MG TABLET PO ×2 (05:37→11:20)
--- NOTE | 2024-02-12 06:39 | PC.NURSE ---
End of shift 2026-0624: A&O pleasant and cooperative. VSS w/ sats >90% on RA. Reporting 4/10 abdominal pain. See eMAR for interventions. Incision open to air. Up at diana in room.
[2024-02-12 07:42] VITALS: BP 123/79; PULSE 69; RESP 16; TEMP 36.4; O2SAT 99
[2024-02-12] MEDS: OMEPRAZOLE 20 MG CAPSULE DR 40 MG PO (08:34)
[2024-02-12] MEDS: SERTRALINE 100 MG TABLET 150 MG PO (08:34)
[2024-02-12 11:17] VITALS: BP 129/81; PULSE 85; RESP 16; TEMP 36.8; O2SAT 98
--- NOTE | 2024-02-12 11:38 | P.DS_ITS ---
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 Indications for procedures were menorrhagia and uterine fibroids. Procedure performed by Dr. Argueta with the assistance of Drs. Lara and Yuli. EBL was 500 mL. Intraoperative findings were notable for a uterus of approximately 16 weeks size. Specimen weight was 871 g. There was initially absence of left ureteral jet, but this resolved after the suture at the left vaginal cuff angle was removed. Surgery was otherwise uncomplicated. Ness's hemoglobin on postoperative day 1 was 10.8. Vitals have been stable. She has remained afebrile. Today, on postoperative day 2, she reports the pain is well controlled. She has been able to ambulate Without difficulty. She is tolerating regular diet. She is passing flatus and has had bowel movement. Eugene catheter has been removed, and she is voiding without difficulty. Time Spent with Patient Time attestation: Total time spent providing and/or coordinating discharge services: Time spent: Less than 30 minutes BLANKBOOK STITCHING MACHINE OPERATOR - Exam Physical Exam: Vital signs: Temp Pulse Resp BP Pulse Ox O2 Del Method 98.2 F 85 16 129/81 98 Room Air 02/12/24 11:17 02/12/24 11:17 02/12/24 11:17 02/12/24 11:17 02/12/24 11:17 02/12/24 11:17 Narrative: General: Pleasant, no acute distress Heart: Regular rate and rhythm, no murmur or gallop Lungs: Clear to auscultation bilaterally Abdomen: Soft, nontender, fundus well below umbilicus Lower extremities: No edema or erythema BLANKBOOK STITCHING MACHINE OPERATOR - DS: Data Data Completed and Pending Completed studies during hospitalization: Hemoglobin 10.8 on 02/10 Procedures Procedures: Procedures Operation Date: 02/10/24 07:30 Actual Procedure Side Surgeon p Total Abdominal Hysterectomy, Bilateral Salpingectomy, Cystoscopy Bilateral Molly Argueta MD s Diagnostic Cystoscopy, Left Ureteral Stent insertion and Removal Left Roxanne Roldan MD Discharge Plan Discharge Disposition: Home, Self-Care Date of Admission: 02/10/24 06:10 Attending Provider on Discharge: Carlota Rodas Primary Care Provider: Provider,Not a Local Condition: Improved Anticipated Discharge Date/Time: 02/12/24 11:40 Discharge Medications: New docusate sodium 100 mg Capsule 100 mg PO BID PRN (Reason: Constipation) Qty: 100 0RF ibuprofen 600 mg Tablet 600 mg PO Q6H Qty: 30 0RF oxycodone 5 mg Tablet 5 mg PO 3XD PRN (Reason: Moderate Pain) Qty: 21 0RF Continued sertraline [Zoloft] 100 mg tablet 150 mg PO QDAY omeprazole 40 mg capsule,delayed release(DR/EC) 40 mg PO DAILY Discharge Orders: Discharge Order (Routine); Ordered 02/12/24 Ordered By: Carlota Rodas Patient Education: Hysterectomy (DC) Additional Instructions: ACTIVITY RESTRICTIONS: Nothing vaginally for 6 weeks: no tampons/intercourse No driving while taking narcotic pain medication during the day. 1-2 weeks. Lifting restriction: Maximum of 20 pounds for 6 weeks. High impact or core exercises: 6 weeks. Submerge the incisions in water (bath/pool/sim): 2 weeks. Off of work/school for a minimum of 6 weeks NO RESTRICTIONS for: Walking Going up/down stairs Showering Being a passenger in a motor vehicle Symptoms to report to your doctor Bleeding that is red, like a moderate period Passing clots larger than the size of a golf ball Pain not relieved by prescribed medication Fever above 100.4 degrees Fahrenheit A foul vaginal odor Decrease in urination or painful, frequent urinating Chest pain Shortness of breath Tenderness or pain with redness and/swelling in the calf(s) of your leg Follow-up Appointments: 1. [facility] 2-3 weeks for an incision check. 2. A 6 week postop visit to verify that the vaginal cuff is well-healed. Discharge Diet: Regular Follow Up Appointments: Carlota Rodas MD [Staff Physician] - Provider,Not a Local [Primary Care Provider] - Forms: [facility] Info Instructions
--- NOTE | 2024-02-12 13:47 | PC.NURSE ---
Pt alert and oriented. Pt had complaints of pain of 2; scheduled medications given. Pt up independently. Pt?s IV removed; catheter intact. Pt discharged home with spouse.? Incision intact w/o drainage.
== END 2024-02-12 13:00 | disposition home or self-care (01) | DRG 743 ==
PROVIDERS: Obstetrics & Gynecology; Admitting Provider Obstetrics & Gynecology; Visit Provider Obstetrics & Gynecology
PROC: 0UT94ZZ Resection of Uterus, Percutaneous Endoscopic Approach (ICD-10-PCS; CPT 52000; principal; 2024-02-10 07:30)
PROC: 0T778DZ Dilation of Left Ureter with Intraluminal Device, Via Natural or Artificial Opening Endoscopic (ICD-10-PCS; 2024-02-10 07:30)
DX: N92.0 Excessive and frequent menstruation with regular cycle (principal); D25.1 Intramural leiomyoma of uterus; N85.2 Hypertrophy of uterus; N13.5 Crossing vessel and stricture of ureter without hydronephrosis; G89.18 Other acute postprocedural pain; K21.9 Gastro-esophageal reflux disease without esophagitis; F41.9 Anxiety disorder, unspecified
CPT/HCPCS: 00840; 36415; 64488; 76942; 81025; 85018; 86850; 86900; 86901; 88307; A9270; C1769; C9290; J0330; J0665; J0690; J1100; J1170; J1885; J2250; J2405; J2704; J3010; J7120